=== PATIENT | male | born 1950 | race Caucasian/White ===

== ENCOUNTER 2018-02-11 14:25 | Inpatient (IN) | payer OTHER ==
[~2018-02-11] VITALS: Ht 172.7 cm; Wt 69.9 kg
[~2018-02-11 14:25] MED LIST: ASPI81TA28 PO; AZIT250T PO; ETHA1TAB8 PO; FRS/40 PO; MONT1TAB3 PO; OXGN; RIFA300C34 PO; UMEC1AER INH; WARF5TAB7 PO
[2018-02-11] MEDS ORDERED: ALBUT/IPRATROP 3MG/0.5MG NEB 3 ML VIAL INH STA (14:42)
[2018-02-11] MEDS ORDERED: CEFEPIME IV 1,000 MG in DEXTROSE 5% 100ML 100 ML IV STA (14:45)
[2018-02-11] MEDS ORDERED: METHYLPREDNISOLONE 125 MG VIAL IV STA (14:45)
[2018-02-11] MEDS ORDERED: SODIUM CHLORIDE 0.9% 1000ML 1,000 ML IV STA (14:45)
[2018-02-11] MEDS ORDERED: OPTIRAY 320 IV PRN (15:00)
--- NOTE | 2018-02-11 15:00 | DIAGNOSTIC IMAGING REPORT ---
CHEST ONE VIEW PORTABLE CLINICAL HISTORY: EVALUATE RESPIRATORY DISTRESS.DYSPNEA COMPARISON STUDY: 11/26/2017 FINDINGS: Right midlung masslike process showing a slight increase in consolidative change compared to the prior study. Lungs otherwise appear clear. Diaphragms are smooth. No evidence of pneumothorax. IMPRESSION: Masslike process right midlung showing a slight interval increase in size and consolidation. The above report was generated using voice recognition software. It may contain grammatical, syntax or spelling errors. Electronically signed by: Jas Reed M.D. 02/11/2018 2:59 PM Dictated Date/Time: 02/11/2018 2:57 PM
[2018-02-11 15:12] LABS: BASO % 0.3 %; BASO ABS # 0.04 K/uL (0-0.2); EOS % 0.4 %; EOS ABS # 0.06 K/uL (0-0.5); HEMATOCRIT 39.8 % (42-52); IG# 0.04 K/uL (0.00-0.02); LYMPH % 5.4 %; MEAN CELL VOLUME 81.4 fL (80-100); MEAN CORPUSCULAR HEMOGLOBIN 24.5 pg (25-34); MEAN CORPUSCULAR HGB CONC 30.2 g/dl (32-36); MEAN PLATELET VOLUME 9.3 fL (7.4-10.4); MONO % 6.3 %; MONO ABS # 0.93 K/uL (0.11-0.59); NEUT % 87.3 %; PLATELET COUNT 357 K/uL (130-400); RED CELL DISTRIBUTION WIDTH CV 15.9 % (11.5-14.5); RED CELL DISTRIBUTION WIDTH SD 47.3 fL (36.4-46.3); WHITE BLOOD COUNT 14.77 K/uL (4.8-10.8)
[2018-02-11 15:19] LABS: ISTAT IONIZED CALCIUM 1.41 mmol/l (1.12-1.32); ISTAT POTASSIUM 4.8 mEq/L (3.3-5.0)
[2018-02-11 15:21] LABS: INR 2.8 (0.9-1.1); PTT PATIENT 33.8 SECONDS (21.0-31.0)
[2018-02-11] MEDS ORDERED: VNTHFA/IN INH (15:28)
[2018-02-11 15:33] LABS: ALBUMIN 2.6 gm/dl (3.4-5.0); CALCIUM 10.5 mg/dl (8.5-10.1); CREATININE 1.05 mg/dl (0.60-1.40); POTASSIUM 4.5 mmol/L (3.5-5.1); TOTAL PROTEIN 8.8 gm/dl (6.4-8.2)
--- NOTE | 2018-02-11 15:44 | DIAGNOSTIC IMAGING REPORT ---
(CHEST FOR PE) ANGIO WITH CT DOSE: 278.74 mGy.cm HISTORY: Chest pain dyspnea TECHNIQUE: Multiaxial CT images of the chest were performed following the intravenous administration of contrast to evaluate the pulmonary arteries. Maximal intensity projection images were also obtained. A dose lowering technique was utilized adhering to the principles of ALARA. COMPARISON STUDY: None. FINDINGS: Mild atherosclerotic change thoracic aorta. No evidence for aneurysm or dissection. Several small filling defects involving the third or vessels of the right as well as left lower pulmonary arterial vasculature. No evidence for a central embolus. Large centrally necrotic mass involving the right lower lobe. This shows extensive invasion into the posterior chest wall and lower right vertebral column. This measures approximately 11 x 8 cm. There are scattered additional nodular densities of the right hemithorax and right hilar region. Several destructive rib changes are seen posterior at the site of the patient's large mass. Destructive changes involving the right lateral elements of the T8-T10 levels. There are destructive changes involving the posterior ribs, right transverse process, components of the right posterior arch as well as soft tissue encroachment upon the right neuroforamina. Additional nodular densities are identified within the right hemithorax suggesting metastatic change. Left lung remains generally clear. IMPRESSION: 1. Study is positive for several small third order emboli involving the right and to a lesser extent left lung base. 2. Large invasive and destructive mass right lower lobe 3. Mass invades right posterior and posterior lateral chest wall as well as the lower thoracic spinal column. 4. Additional scattered nodular densities of the right hemithorax consistent with metastatic foci. Instill note is made of a significant upper pole left renal cyst as well as developing upper abdominal and retrocrural adenopathy. The above report was generated using voice recognition software. It may contain grammatical, syntax or spelling errors. Electronically signed by: Jas Reed M.D. 02/11/2018 3:43 PM Dictated Date/Time: 02/11/2018 3:36 PM
[2018-02-11] MEDS ORDERED: VANCOMYCIN IV 1,400 MG in SODIUM CHLORIDE 0.9% 500ML 500 ML IV STA (15:57)
[2018-02-11] MEDS ORDERED: VANCOMYCIN CONSULT ACTIVE PRN ×2 (16:00→17:00)
[2018-02-11] MEDS ORDERED: PIPERACILLIN/TAZOBACTAM 4.5 GM/100ML D5W IV STA (16:12)
[2018-02-11] MEDS ORDERED: VANCOMYCIN IV 1,500 MG in SODIUM CHLORIDE 0.9% 500ML 500 ML IV ONE (16:15)
[2018-02-11] MEDS ORDERED: ACETAMINOPHEN 325 MG TAB PO PRN (16:45)
[2018-02-11] MEDS ORDERED: MAGNESIUM HYDROXIDE SUSP 30 ML UDC PO PRN (16:45)
[2018-02-11] MEDS ORDERED: ALBUTEROL 0.083% NEBU SOLN 3 ML VIAL INH PRN (16:45)
[2018-02-11] MEDS ORDERED: PIPERACILL/TAZOBAC CONSULT ACTIVE PRN (16:45)
[2018-02-11] MEDS ORDERED: ALUMINUM/MAGNESIUM/SIMETH (MAALOX MAX) 30 ML UDC PO PRN (16:45)
[2018-02-11] MEDS ORDERED: ZOLPIDEM TARTRATE 5 MG TAB PO PRN (16:45)
[2018-02-11] MEDS ORDERED: ONDANSETRON INJ 2 MG/ML 2 ML VIAL IV PRN (16:45)
[2018-02-11] MEDS ORDERED: POLYETHYLENE (MIRALAX) 17 GM PACK PO PRN (17:00)
--- NOTE | 2018-02-11 17:19 | History and Physical ---
History & Physical Date & Time of Service: Feb 11, 2018 at 16:36 Chief Complaint: O2 Level Down To 80% Primary Care Physician: Timoteo Lunsford M.D. History of Present Illness Source: patient, hospital records, other 67 y/o M Hx advanced COPD, recent Dx of R lung squamous cell CA, ARVIN infection, CAD, PVD, continues to smoke. The pt is dependent on 3L 02. He has been progressively SOB with a productive cough over the past day. He presented to the ER where an initial oxygen saturation was in the low 80s on his baseline 3L. He was sent for a CTA due to hypoxia which demonstrated several small third order emboli involving the right and to a lesser extent left lung base. A large, invasive R lung mass is again confirmed. The pt's INR is 2.8 on admission. His family states that recently, numbers have been subtherapeutic due to multiple antibiotics used to treat ARVIN. He does not complain of CP and could not confirm a fever. Initial labs are notable for leukocytosis. 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 The pt reports previous asbestos exposure. Smoking Status: Former Smoker Allergies Coded Allergies: No Known Allergies (Unverified , 02/11/18) Home Medications Scheduled Albuterol Hfa (Ventolin Hfa), 2 PUFFS INH Q6H Aspirin (Aspirin Ec), 81 MG PO DAILY Azithromycin (Zithromax), 250 MG PO DAILY Ethambutol Hcl (Ethambutol Hcl), 1,000 MG PO DAILY Furosemide (Lasix), 40 MG PO QAM Home O2 Therapy (Oxygen), 2 LITERS NA DAILY Home O2 Therapy (Oxygen), 4 LITERS NA HS Montelukast Sodium (Singulair), 10 MG PO QPM Rifampin (Rifadin), 300 MG PO BID Umeclidinium-Vilanterol (Anoro Ellipta 62.5-25 Mcg/INH), 1 PUFF INH QAM Warfarin Sod (Jantoven), 10 MG PO DAILY Review of Systems Constitutional: + weakness, + fatigue, No fever, No chills, No sweats Eyes: No worsening of vision ENT: No hearing loss, No unusual epistaxis, No nasal symptoms Respiratory: + cough, + sputum, + shortness of breath, + dyspnea on exertion, + dyspnea at rest Cardiovascular: No chest pain Abdomen: No pain, No nausea Musculoskeletal: No joint pain Genitourinary - Male: No hematuria, No dysuria, No urinary frequency Neurologic: No memory loss, No paralysis Psychiatric: No depression symptoms Endocrine: + fatigue Hematologic / Lymphatic: No abnormal bleeding/bruising Integumentary: No rash Allergic / Immunologic: No environmental allergies Physical Exam Vital Signs Date Time Temp Pulse Resp B/P (MAP) Pulse Ox O2 Delivery O2 Flow Rate FiO2 02/11/18 16:00 95 22 120/72 99 Nasal Cannula 5.0 02/11/18 15:42 97 Nasal Cannula 5.0 02/11/18 14:57 99 Oxymask 10.0 02/11/18 14:48 96 Oxymask 10.0 02/11/18 14:48 112 02/11/18 14:43 96 Oxymask 10.0 02/11/18 14:28 36.3 119 36 108/62 75 Nasal Cannula 3.0 General Appearance: WD/WN, no apparent distress, + pertinent finding (Pale appearing, middle-aged male, flat affect - no distress) Head: normocephalic Eyes: normal inspection ENT: normal ENT inspection Neck: supple, no JVD Respiratory/Chest: chest non-tender, + pertinent finding (Very poor air movement BL) Cardiovascular: regular rate, rhythm, no edema, no gallop Abdomen/GI: normal bowel sounds, non tender, soft Back: normal inspection Extremities/Musculoskelatal: normal inspection, no calf tenderness Neurologic/Psych: medical associate II-XII nml as tested, no motor/sensory deficits, alert Skin: warm/dry, + pallor Diagnostics Laboratory Results Results Past 24 Hours Test 02/11/18 15:00 02/11/18 15:10 Range/Units White Blood Count 14.77 4.8-10.8 K/uL Red Blood Count 4.89 4.7-6.1 M/uL Hemoglobin 12.0 14.0-18.0 g/dL Hematocrit 39.8 42-52 % Mean Corpuscular Volume 81.4 80-100 fL Mean Corpuscular Hemoglobin 24.5 25-34 pg Mean Corpuscular Hemoglobin Concent 30.2 32-36 g/dl Platelet Count 357 130-400 K/uL Mean Platelet Volume 9.3 7.4-10.4 fL Neutrophils (%) (Auto) 87.3 % Lymphocytes (%) (Auto) 5.4 % Monocytes (%) (Auto) 6.3 % Eosinophils (%) (Auto) 0.4 % Basophils (%) (Auto) 0.3 % Neutrophils # (Auto) 12.90 1.4-6.5 K/uL Lymphocytes # (Auto) 0.80 1.2-3.4 K/uL Monocytes # (Auto) 0.93 0.11-0.59 K/uL Eosinophils # (Auto) 0.06 0-0.5 K/uL Basophils # (Auto) 0.04 0-0.2 K/uL RDW Standard Deviation 47.3 36.4-46.3 fL RDW Coefficient of Variation 15.9 11.5-14.5 % Immature Granulocyte % (Auto) 0.3 % Immature Granulocyte # (Auto) 0.04 0.00-0.02 K/uL Prothrombin Time 29.1 9.0-12.0 SECONDS Prothromb Time International Ratio 2.8 0.9-1.1 Activated Partial Thromboplast Time 33.8 21.0-31.0 SECONDS Partial Thromboplastin Ratio 1.3 Sodium Level 135 136-145 mmol/L Potassium Level 4.5 3.5-5.1 mmol/L Chloride Level 100 98-107 mmol/L Carbon Dioxide Level 31 21-32 mmol/L Anion Gap 4.0 13.0 16-25 mmol/L Blood Urea Nitrogen 20 7-18 mg/dl Creatinine 1.05 0.60-1.40 mg/dl Est Creatinine Clear Calc Drug Dose 64.2 ml/min Estimated GFR () 83.5 Estimated GFR (Non- 72.1 BUN/Creatinine Ratio 19.5 10-20 Random Glucose 104 70-99 mg/dl Calcium Level 10.5 8.5-10.1 mg/dl Total Bilirubin 0.2 0.2-1 mg/dl Aspartate Amino Transf (AST/SGOT) 26 15-37 U/L Alanine Aminotransferase (ALT/SGPT) 20 12-78 U/L Alkaline Phosphatase 121 45-117 U/L Troponin I 0.035 0-0.045 ng/ml Total Protein 8.8 6.4-8.2 gm/dl Albumin 2.6 3.4-5.0 gm/dl Globulin 6.2 2.5-4.0 gm/dl Albumin/Globulin Ratio 0.4 0.9-2 Bedside Hemoglobin 14.3 14.0-18.0 g/dl Bedside Hematocrit 42 42-52 % Bedside Sodium 139 135-144 mEq/L Bedside Potassium 4.8 3.3-5.0 mEq/L Bedside Chloride 97 101-112 mEq/L Bedside Total CO2 36 24-31 mEq/l Bedside Blood Urea Nitrogen 25 7-18 mg/dl Bedside Creatinine 1.0 0.6-1.3 mg/dl Bedside Glucose (other) 110 70-99 mg/dl Bedside Ionized Calcium (Jasmin) 1.41 1.12-1.32 mmol/l Diagnostic Radiology CTA: 1. Study is positive for several small third order emboli involving the right and to a lesser extent left lung base. 2. Large invasive and destructive mass right lower lobe. 3. Mass invades right posterior and posterior lateral chest wall as well as the lower thoracic spinal column. 4. Additional scattered nodular densities of the right hemithorax consistent with metastatic foci. Instill note is made of a significant upper pole left renal cyst as well as developing upper abdominal and retrocrural adenopathy. Impression Assessment and Plan 67 y/o M Hx advanced COPD, recent Dx of R lung squamous cell CA, ARVIN infection, CAD, PVD, continues to smoke. The pt is dependent on 3L 02. He has been progressively SOB with a productive cough over the past day. He presented to the ER where an initial oxygen saturation was in the low 80s on his baseline 3L. He was sent for a CTA due to hypoxia which demonstrated several small third order emboli involving the right and to a lesser extent left lung base. A large, invasive R lung mass is again confirmed. The pt's INR is 2.8 on admission. His family states that recently, numbers have been subtherapeutic due to multiple antibiotics used to treat ARVIN. He does not complain of CP and could not confirm a fever. Initial labs are notable for leukocytosis. 1) Hypoxia - multifactorial - Productive cough. 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 We will obtain a sputum culture. We will hold his MAC treatment presently. - Advanced COPD - will be treated for exacerbation with nebs and steroids - Peripheral PEs - unclear if these are contributing. INR has apparently been erratic as of late, however, it is concerning that he is developing PEs on Coumadin considering his underlying CA - this will need f/u. We have continued his Coumadin and have requested a LE US. - Lung CA - recent diagnosis - treatment plan has not yet been formulated per pt. 2) CAD - no evidence of ACS - cont daily ASA 3) Discussed smoking cessation Full code - INR is therapeutic on Coumadin prophylaxis Total tie for this admit including review of labs, meds, imaging, records - discussion with pt and ER attending - 40 min Resuscitation Status VTE Prophylaxis Will order VTE Prophylaxis: Yes
[2018-02-11 18:15] VITALS: BP 138/52; PULSE 90; TEMP 36.4; O2SAT 86; BMI 23.1
--- NOTE | 2018-02-11 18:15 | DIAGNOSTIC IMAGING REPORT ---
BILATERAL LOWER EXTREMITY VENOUS DOPPLER HISTORY: Acute pain and swelling of the lower extremities. History of prior bilateral lower extremity arterial stent graft placement DVT COMPARISON STUDY: None. FINDINGS: There is normal compressibility, flow, and augmentation within the bilateral lower extremity deep venous systems. IMPRESSION: No sonographic evidence of deep venous or pneumatosis within the right or left lower extremity. Electronically signed by: Yahir Hedrick M.D. 02/11/2018 6:14 PM Dictated Date/Time: 02/11/2018 6:13 PM
[2018-02-11] MEDS ORDERED: SODIUM CHLORIDE 0.9% 1000ML 1,000 ML IV ONE (19:00)
[2018-02-11] MEDS: ALBUT/IPRATROP 3MG/0.5MG NEB 3 ML VIAL INH SCH (19:05)
[2018-02-11 19:10] VITALS: PULSE 105; O2SAT 90
[2018-02-11 19:30] VITALS: BP 97/58; PULSE 99; TEMP 36.4; O2SAT 92
--- NOTE | 2018-02-11 19:40 | EMERGENCY ROOM VISIT NOTE ---
History Report prepared by Guy: Sybil Cagle Under the Supervision of: Dr. Ryan Vizcaino D.O. First contact with patient: 14:28 Chief Complaint: RESPIRATORY PROBLEMS Stated Complaint: O2 LEVEL DOWN TO 80% History of Present Illness The patient is a 67 year old male who presents to the Emergency Room with respiratory problems beginning today. He reports being more short of breath today. The patient states that he always wears oxygen and that he normally wears 3L during the day and 4L at night. The patient also reports having a productive cough and a runny nose. He states that he has been coughing up clear and pinkish phlegm. Per family, the patient is on Coumadin and states that the patient's numbers have not been good for about the past 3 weeks because he was placed on 3 antibiotics. Per family, the patient's INR was 1.38 last week. The patient denies having chest pain, abdominal pain, nausea, vomiting, or diarrhea. He does report that he has a history of blood clots. He states that he has an appointment tomorrow with Dr. Santiago. The following information was obtained from Dr. Marcus's office. The patient has a history of smoking. 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 The patient has a history of COPD and wears 3 Liters of Oxygen. The patient was hypoxic at 80% on 3 Liters. The patient follows with Dr. Boyer. Question of MAC. Source of History: patient, family Onset: today Position: chest Quality: other (respiratory problems) Associated Symptoms: + cough (productive), + SOB, No nausea, No vomiting, No abdominal pain, No diarrhea Review of Systems See HPI for pertinent positives & negatives. A total of 10 systems reviewed and were otherwise negative. Past Medical & Surgical Medical Problems: (1) COPD (chronic obstructive pulmonary disease) (2) Hypoxia (3) Lung cancer (4) Squamous cell carcinoma Family History Patient reports no known family medical history. Social History Smoking Status: Former Smoker Marital Status: Housing Status: lives with significant other Current/Historical Medications Scheduled Albuterol Hfa (Ventolin Hfa), 2 PUFFS INH Q6H Aspirin (Aspirin Ec), 81 MG PO DAILY Azithromycin (Zithromax), 250 MG PO DAILY Ethambutol Hcl (Ethambutol Hcl), 1,000 MG PO DAILY Furosemide (Lasix), 40 MG PO QAM Home O2 Therapy (Oxygen), 2 LITERS NA DAILY Home O2 Therapy (Oxygen), 4 LITERS NA HS Montelukast Sodium (Singulair), 10 MG PO QPM Rifampin (Rifadin), 300 MG PO BID Umeclidinium-Vilanterol (Anoro Ellipta 62.5-25 Mcg/INH), 1 PUFF INH QAM Warfarin Sod (Jantoven), 10 MG PO DAILY Allergies Coded Allergies: No Known Allergies (Unverified , 02/11/18) Physical Exam Vital Signs Date Time Temp Pulse Resp B/P (MAP) Pulse Ox O2 Delivery O2 Flow Rate FiO2 02/11/18 16:00 95 22 120/72 99 Nasal Cannula 5.0 02/11/18 15:42 97 Nasal Cannula 5.0 02/11/18 14:57 99 Oxymask 10.0 02/11/18 14:48 96 Oxymask 10.0 02/11/18 14:48 112 02/11/18 14:43 96 Oxymask 10.0 02/11/18 14:28 36.3 119 36 108/62 75 Nasal Cannula 3.0 Physical Exam GENERAL: Sitting on the edge of the bed, alert, ill appearing, well nourished, no distress, non-toxic. Dyspneic with conversation. Oxygen mask in place. EYE EXAM: normal conjunctiva. OROPHARYNX: no exudate, no erythema, lips, buccal mucosa, and tongue normal and mucous membranes are moist NECK: supple, no nuchal rigidity, no adenopathy, non-tender, no JVD LUNGS: Diffuse rhonchi bilaterally. Minimal air movement. Normal chest wall mechanics HEART: tachycardic, no murmurs, S1 normal and S2 normal ABDOMEN: abdomen soft, non-tender, normo-active bowel sounds, no masses, no rebound or guarding. BACK: Back is symmetrical on inspection and there is no deformity, no midline tenderness, no CVA tenderness. SKIN: no rashes and no bruising UPPER EXTREMITIES: upper extremities are grossly normal. LOWER EXTREMITIES: No pitting edema. Calves are equal bilaterally. NEURO EXAM: Normal sensorium, cranial nerves II-XII grossly intact, normal speech, no gross weakness of arms, no gross weakness of legs. Medical Decision & Procedures ER Provider Diagnostic Interpretation: Radiology results as stated below per my review and the radiologist's interpretation: CHEST ONE VIEW PORTABLE CLINICAL HISTORY: EVALUATE RESPIRATORY DISTRESS.DYSPNEA COMPARISON STUDY: 11/26/2017 FINDINGS: Right midlung masslike process showing a slight increase in consolidative change compared to the prior study. Lungs otherwise appear clear. Diaphragms are smooth. No evidence of pneumothorax. IMPRESSION: Masslike process right midlung showing a slight interval increase in size and consolidation. The above report was generated using voice recognition software. It may contain grammatical, syntax or spelling errors. Electronically signed by: Jas Reed M.D. 02/11/2018 2:59 PM Dictated Date/Time: 02/11/2018 2:57 PM (CHEST FOR PE) ANGIO WITH CT DOSE: 278.74 mGy.cm HISTORY: Chest pain dyspnea TECHNIQUE: Multiaxial CT images of the chest were performed following the intravenous administration of contrast to evaluate the pulmonary arteries. Maximal intensity projection images were also obtained. A dose lowering technique was utilized adhering to the principles of ALARA. COMPARISON STUDY: None. FINDINGS: Mild atherosclerotic change thoracic aorta. No evidence for aneurysm or dissection. Several small filling defects involving the third or vessels of the right as well as left lower pulmonary arterial vasculature. No evidence for a central embolus. Large centrally necrotic mass involving the right lower lobe. This shows extensive invasion into the posterior chest wall and lower right vertebral column. This measures approximately 11 x 8 cm. There are scattered additional nodular densities of the right hemithorax and right hilar region. Several destructive rib changes are seen posterior at the site of the patient's large mass. Destructive changes involving the right lateral elements of the T8-T10 levels. There are destructive changes involving the posterior ribs, right transverse process, components of the right posterior arch as well as soft tissue encroachment upon the right neuroforamina. Additional nodular densities are identified within the right hemithorax suggesting metastatic change. Left lung remains generally clear. IMPRESSION: 1. Study is positive for several small third order emboli involving the right and to a lesser extent left lung base. 2. Large invasive and destructive mass right lower lobe 3. Mass invades right posterior and posterior lateral chest wall as well as the lower thoracic spinal column. 4. Additional scattered nodular densities of the right hemithorax consistent with metastatic foci. Instill note is made of a significant upper pole left renal cyst as well as developing upper abdominal and retrocrural adenopathy. The above report was generated using voice recognition software. It may contain grammatical, syntax or spelling errors. Electronically signed by: Jas Reed M.D. 02/11/2018 3:43 PM Dictated Date/Time: 02/11/2018 3:36 PM Laboratory Results 02/11/18 15:00 Red Blood Count 4.89, Mean Corpuscular Volume 81.4, Mean Corpuscular Hemoglobin 24.5, Mean Corpuscular Hemoglobin Concent 30.2, Mean Platelet Volume 9.3, Neutrophils (%) (Auto) 87.3, Lymphocytes (%) (Auto) 5.4, Monocytes (%) (Auto) 6.3, Eosinophils (%) (Auto) 0.4, Basophils (%) (Auto) 0.3, Neutrophils # (Auto) 12.90, Lymphocytes # (Auto) 0.80, Monocytes # (Auto) 0.93, Eosinophils # (Auto) 0.06, Basophils # (Auto) 0.04 02/11/18 15:00 Test 02/11/18 15:00 02/11/18 15:10 White Blood Count 14.77 K/uL (4.8-10.8) Red Blood Count 4.89 M/uL (4.7-6.1) Hemoglobin 12.0 g/dL (14.0-18.0) Hematocrit 39.8 % (42-52) Mean Corpuscular Volume 81.4 fL (80-100) Mean Corpuscular Hemoglobin 24.5 pg (25-34) Mean Corpuscular Hemoglobin Concent 30.2 g/dl (32-36) Platelet Count 357 K/uL (130-400) Mean Platelet Volume 9.3 fL (7.4-10.4) Neutrophils (%) (Auto) 87.3 % Lymphocytes (%) (Auto) 5.4 % Monocytes (%) (Auto) 6.3 % Eosinophils (%) (Auto) 0.4 % Basophils (%) (Auto) 0.3 % Neutrophils # (Auto) 12.90 K/uL (1.4-6.5) Lymphocytes # (Auto) 0.80 K/uL (1.2-3.4) Monocytes # (Auto) 0.93 K/uL (0.11-0.59) Eosinophils # (Auto) 0.06 K/uL (0-0.5) Basophils # (Auto) 0.04 K/uL (0-0.2) RDW Standard Deviation 47.3 fL (36.4-46.3) RDW Coefficient of Variation 15.9 % (11.5-14.5) Immature Granulocyte % (Auto) 0.3 % Immature Granulocyte # (Auto) 0.04 K/uL (0.00-0.02) Prothrombin Time 29.1 SECONDS (9.0-12.0) Prothromb Time International Ratio 2.8 (0.9-1.1) Activated Partial Thromboplast Time 33.8 SECONDS (21.0-31.0) Partial Thromboplastin Ratio 1.3 Est Creatinine Clear Calc Drug Dose 64.2 ml/min Estimated GFR () 83.5 Estimated GFR (Non- 72.1 BUN/Creatinine Ratio 19.5 (10-20) Calcium Level 10.5 mg/dl (8.5-10.1) Total Bilirubin 0.2 mg/dl (0.2-1) Aspartate Amino Transf (AST/SGOT) 26 U/L (15-37) Alanine Aminotransferase (ALT/SGPT) 20 U/L (12-78) Alkaline Phosphatase 121 U/L (45-117) Troponin I 0.035 ng/ml (0-0.045) Total Protein 8.8 gm/dl (6.4-8.2) Albumin 2.6 gm/dl (3.4-5.0) Globulin 6.2 gm/dl (2.5-4.0) Albumin/Globulin Ratio 0.4 (0.9-2) Bedside Hemoglobin 14.3 g/dl (14.0-18.0) Bedside Hematocrit 42 % (42-52) Bedside Sodium 139 mEq/L (135-144) Bedside Potassium 4.8 mEq/L (3.3-5.0) Bedside Chloride 97 mEq/L (101-112) Bedside Total CO2 36 mEq/l (24-31) Anion Gap 13.0 mmol/L (16-25) Bedside Blood Urea Nitrogen 25 mg/dl (7-18) Bedside Creatinine 1.0 mg/dl (0.6-1.3) Bedside Glucose (other) 110 mg/dl (70-99) Bedside Ionized Calcium (Jasmin) 1.41 mmol/l (1.12-1.32) Laboratory results per my review. Medications Administered Medications (Trade) Dose Ordered Sig/Danae Route Start Time Stop Time Status Last Admin Dose Admin Albuterol/ Ipratropium (Duoneb) 3 ml NOW STAT INH 02/11/18 14:42 02/11/18 14:44 DC 02/11/18 14:55 3 ML Cefepime HCl 1000 mg/Dextrose 111 ml @ 200 mls/hr NOW STAT IV 02/11/18 14:45 02/11/18 15:18 DC 02/11/18 15:10 200 MLS/HR Sodium Chloride 1,000 ml @ 999 mls/hr Q1H1M STAT IV 02/11/18 14:45 02/11/18 15:45 DC 02/11/18 15:10 999 MLS/HR Methylprednisolone Sodium Succinate (Solu-Medrol IV) 125 mg NOW STAT IV 02/11/18 14:45 02/11/18 14:46 DC 02/11/18 15:10 125 MG Vancomycin HCl 1500 mg/Sodium Chloride 530 ml @ 200 mls/hr 1615 ONCE IV 02/11/18 16:15 02/11/18 18:53 DC 02/11/18 16:50 200 MLS/HR Piperacillin Sod/ Tazobactam Sod (Zosyn Iv) 4.5 gm NOW STAT IV 02/11/18 16:12 02/11/18 16:13 DC 02/11/18 16:18 4.5 GM ECG Per My Interpretation Indication: SOB/dyspnea Rate (beats per minute): 112 Rhythm: sinus tachycardia Findings: other (normal axis, poor baseline ) ED Course ED COURSE: Vital signs were reviewed and showed hypoxia. The patients medical record was reviewed The above diagnostic studies were performed and reviewed. ED treatments and interventions as stated above. 1434: The patient was evaluated in room C6. A complete history and physical examination was performed. 1442: Ordered Duoneb 3 ml INH 1445: Ordered Solu-Medrol IV 125 mg IV, Sodium Chloride 1000 ml @ 999 mls/hr IV , Cefepime HCl 1000 mg/Dextrose 111 ml @ 200 mls/hr IV. 1600: Ordered Vancomycin HCl 1 ea consult. 1612: Ordered Zosyn IV 4.5 gm IV 1615: Ordered Vancomycin HCl 1500 mg/Sodium Chloride 530 ml @ 200 mls/hr IV. 1644: Upon reevaluation, the patient is resting. I discussed the findings and the treatment plan with the patient. He expresses agreement and understanding. I spoke with Dr. Brothers of the [facility]. He will be evaluated for further management. Medical Decision Differential diagnoses includes but is not limited to pneumonia, bronchitis, COPD/Asthma exacerbation, pneumothorax, pulmonary embolism, congestive heart failure, acute coronary syndrome. Patient is a 67-year-old male presents the ER referred in by hematology oncology as he was found to be hypoxic at 80% on his normal 3 L nasal cannula. He notes he became significantly short of breath today. It was sudden in onset. He also notes to a productive cough which is slightly changed. 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 He has a known squamous cell carcinoma with metastases and a cavitary lesion of the chest. CBC shows a leukocytosis of 14,000. BMP along with LFTs were fairly normal. Troponin was negative. INR was therapeutic at 2.8. I did obtain a CT PE as he notes he did have close to 3 weeks where his INR was low with history of PEs. UA without infection. CT of the chest did show PEs and a slightly worsening cavitary lesion. Patient was given IV Zosyn and vancomycin. I did discuss with pulmonology. Patient was updated bedside. He was admitted to internal medicine. Medication Reconcilliation Current Medication List: was personally reviewed by me Blood Pressure Screening Patient's blood pressure: Normal blood pressure Consults Time Called: 1627 Consulting Physician: Dr. Brothers-[facility] Returned Call: 1644 I reviewed the patient's case with Dr. Brothers. He will evaluate the patient for further management. Impression Primary Impression: Pulmonary embolism Additional Impressions: Hypoxia Metastatic squamous cell carcinoma Scribe Attestation The scribe's documentation has been prepared under my direction and personally reviewed by me in its entirety. I confirm that the note above accurately reflects all work, treatment, procedures, and medical decision making performed by me. Departure Information Dispostion Being Evaluated By Hospitalist Referrals Timoteo Lunsford M.D. (PCP) Patient Instructions My [facility] Problem Qualifiers Primary Impression: Pulmonary embolism Pulmonary embolism type: other Chronicity: acute Acute cor pulmonale presence: without acute cor pulmonale Qualified Codes: I26.99 - Other pulmonary embolism without acute cor pulmonale
[2018-02-11] MEDS: METHYLPREDNISOLONE IV 40 MG in SYRINGE 0 ML IV SCH (19:46)
[2018-02-11] MEDS ORDERED: AZITHROMYCIN IV 500 MG in DEXTROSE 5% 250ML 250 ML IV SCH (20:00)
[2018-02-11] MEDS: PIPERACILL/TAZOBAC IV 3.375 GM in DEXTROSE 5% 100ML 100 ML IV SCH (22:54)
[2018-02-11 23:11] VITALS: BP 97/61; PULSE 85; TEMP 36.5; O2SAT 93
[2018-02-11 23:30] VITALS: PULSE 84; O2SAT 95
[2018-02-12] VITALS (11 sets, daily range): BP systolic 95–128; BP diastolic 54–75; PULSE 90–137; TEMP 36.4–36.8; O2SAT 90–98
[2018-02-12] MEDS ORDERED: VANCOMYCIN IV 1,000 MG in SODIUM CHLORIDE 0.9% 250ML 250 ML IV SCH (01:00)
[2018-02-12] MEDS: ALBUT/IPRATROP 3MG/0.5MG NEB 3 ML VIAL INH SCH ×4 (01:36→19:00)
[2018-02-12] MEDS: METHYLPREDNISOLONE IV 40 MG in SYRINGE 0 ML IV SCH ×4 (01:55→20:37)
[2018-02-12] MEDS: PIPERACILL/TAZOBAC IV 3.375 GM in DEXTROSE 5% 100ML 100 ML IV SCH (05:13)
[2018-02-12 07:05] LABS: HEMOGLOBIN 10.2 g/dL (14.0-18.0); MEAN CELL VOLUME 82.2 fL (80-100); MEAN CORPUSCULAR HEMOGLOBIN 23.9 pg (25-34); MEAN CORPUSCULAR HGB CONC 29.1 g/dl (32-36); MEAN PLATELET VOLUME 9.4 fL (7.4-10.4); PLATELET COUNT 343 K/uL (130-400); RED CELL DISTRIBUTION WIDTH CV 16.1 % (11.5-14.5); RED CELL DISTRIBUTION WIDTH SD 48.7 fL (36.4-46.3); WHITE BLOOD COUNT 15.26 K/uL (4.8-10.8)
[2018-02-12 07:26] LABS: CALCIUM 9.7 mg/dl (8.5-10.1); CREATININE 0.99 mg/dl (0.60-1.40); POTASSIUM 4.3 mmol/L (3.5-5.1)
[2018-02-12 08:21] LABS: INR 2.8 (0.9-1.1)
--- NOTE | 2018-02-12 09:56 | Clinical Documentation Query ---
WILLIE Hammonds : CLINICAL DOCUMENTATION QUERY Patient is a 67 year old male admitted for evaluation and treatment of hypoxemia. Noted to be dependent upon 3L O2 via nasal cannula. Above this, patient required sa 10L/min mask to correct acute hypoxemia in the setting of pneumonia and pulmonary emboli. As appropriate, consider capture of this clinical information as suggested below. Thank you. In your clinical opinion is this patient being managed for: ( x ) Acute on chronic respiratory failure with hypoxia ( ) Not Agree ( ) Other explanation of clinical findings (No explanation is considered a No Response) ( ) Unable to determine ( ) Need to Discuss (Phone CDS or qliq) (No discussion is considered a No Response) The medical record reflects the following clinical findings, treatment, and risk factors. Clinical Indicators: As above Treatment: Ongoing provision of supplemental O2 Risk Factors: Pneumonia, acute COPD exacerbation, bilateral pulmonary emboli. Please clarify and document your clinical opinion in the progress notes and discharge summary. Terms such as "probable", "suspected", "likely", "questionable", "possible", or "still to tbe ruled out" are acceptable. IF IN AGREEMENT, YOU MUST DOCUMENT ABOVE DIAGNOSTIC STATEMENT IN DAILY PROGRESS NOTES AND DISCHARGE SUMMARY. This document is not part of the patient's record. Thank You, Krunal Miller, [phone]
--- NOTE | 2018-02-12 11:31 | Hospitalist Progress Note ---
Hospitalist Progress Note Date of Service Feb 12, 2018. Subjective Pt evaluation today including: conversation w/ patient, chart review (reviewed outpatient records extensively), conversation w/ web consultant (Pulmonology) Pt feels much better, breathing is back to baseline, no cough. Afebrile. No pain. Tele with NSR with a short burst of SVT., Pt reports he switched to [facility] recently and had a CT guided biopsy of his lung mass. He was seeing Dr. Marcus yesterday for the first time in Oncology clinic but when found to be hypoxic, was sent to the ER Constitutional: No fever All Other Systems: Reviewed and Negative Objective Vital Signs Date Time Temp Pulse Resp B/P (MAP) Pulse Ox O2 Delivery O2 Flow Rate FiO2 02/12/18 08:00 Nasal Cannula 4.0 02/12/18 07:09 99 20 93 Nasal Cannula 4.0 02/12/18 06:48 36.5 100 32 121/64 (83) 91 Nasal Cannula 4.0 02/12/18 04:43 36.5 95 38 96/57 (70) 90 Nasal Cannula 4.0 02/12/18 01:36 91 20 92 Nasal Cannula 4.0 02/11/18 23:30 84 20 95 Nasal Cannula 4.0 02/11/18 23:11 36.5 85 23 97/61 (73) 93 Nasal Cannula 4.0 02/11/18 20:00 Nasal Cannula 4.0 02/11/18 19:30 36.4 99 20 97/58 (71) 92 Nasal Cannula 4.0 02/11/18 19:10 105 20 90 Nasal Cannula 4.0 02/11/18 18:15 36.4 90 28 138/52 86 Nasal Cannula 3.0 02/11/18 17:35 91 30 90/54 97 02/11/18 17:01 92 02/11/18 16:00 95 22 120/72 99 Nasal Cannula 5.0 02/11/18 15:42 97 Nasal Cannula 5.0 02/11/18 14:57 99 Oxymask 10.0 02/11/18 14:48 96 Oxymask 10.0 02/11/18 14:48 112 02/11/18 14:43 96 Oxymask 10.0 02/11/18 14:28 36.3 119 36 108/62 75 Nasal Cannula 3.0 Physical Exam General Appearance: WD/WN, no apparent distress Eyes: normal inspection, sclerae normal ENT: hearing grossly normal, pharynx normal Neck: trachea midline Respiratory/Chest: no respiratory distress, no accessory muscle use, + wheezing (diffuse exp wheezes and some crackles, with decreased BS at right lower and middl elung browning) Cardiovascular: regular rate, rhythm, no edema, no murmur Abdomen: normal bowel sounds, non tender, soft, no organomegaly Extremities: no pedal edema, no calf tenderness, + pertinent finding (chronic venous stasis changes) Neurologic/Psychiatric: alert, normal mood/affect, oriented x 3 Skin: warm/dry, no rash Laboratory Results Last 24 Hours Test 02/11/18 15:00 02/11/18 15:10 02/11/18 17:42 02/11/18 18:40 White Blood Count 14.77 K/uL Red Blood Count 4.89 M/uL Hemoglobin 12.0 g/dL Hematocrit 39.8 % Mean Corpuscular Volume 81.4 fL Mean Corpuscular Hemoglobin 24.5 pg Mean Corpuscular Hemoglobin Concent 30.2 g/dl Platelet Count 357 K/uL Mean Platelet Volume 9.3 fL Neutrophils (%) (Auto) 87.3 % Lymphocytes (%) (Auto) 5.4 % Monocytes (%) (Auto) 6.3 % Eosinophils (%) (Auto) 0.4 % Basophils (%) (Auto) 0.3 % Neutrophils # (Auto) 12.90 K/uL Lymphocytes # (Auto) 0.80 K/uL Monocytes # (Auto) 0.93 K/uL Eosinophils # (Auto) 0.06 K/uL Basophils # (Auto) 0.04 K/uL RDW Standard Deviation 47.3 fL RDW Coefficient of Variation 15.9 % Immature Granulocyte % (Auto) 0.3 % Immature Granulocyte # (Auto) 0.04 K/uL Prothrombin Time 29.1 SECONDS Prothromb Time International Ratio 2.8 Activated Partial Thromboplast Time 33.8 SECONDS Partial Thromboplastin Ratio 1.3 Sodium Level 135 mmol/L Potassium Level 4.5 mmol/L Chloride Level 100 mmol/L Carbon Dioxide Level 31 mmol/L Anion Gap 4.0 mmol/L 13.0 mmol/L Blood Urea Nitrogen 20 mg/dl Creatinine 1.05 mg/dl Est Creatinine Clear Calc Drug Dose 64.2 ml/min Estimated GFR () 83.5 Estimated GFR (Non- 72.1 BUN/Creatinine Ratio 19.5 Random Glucose 104 mg/dl Calcium Level 10.5 mg/dl Total Bilirubin 0.2 mg/dl Aspartate Amino Transf (AST/SGOT) 26 U/L Alanine Aminotransferase (ALT/SGPT) 20 U/L Alkaline Phosphatase 121 U/L Troponin I 0.035 ng/ml Total Protein 8.8 gm/dl Albumin 2.6 gm/dl Globulin 6.2 gm/dl Albumin/Globulin Ratio 0.4 Bedside Hemoglobin 14.3 g/dl Bedside Hematocrit 42 % Bedside Sodium 139 mEq/L Bedside Potassium 4.8 mEq/L Bedside Chloride 97 mEq/L Bedside Total CO2 36 mEq/l Bedside Blood Urea Nitrogen 25 mg/dl Bedside Creatinine 1.0 mg/dl Bedside Glucose (other) 110 mg/dl Bedside Ionized Calcium (Jasmin) 1.41 mmol/l Procalcitonin 0.25 ng/ml Urine Color DK YELLOW Urine Appearance CLEAR Urine pH 5.0 Urine Specific Smoot > 1.045 Urine Protein TRACE Urine Glucose (UA) NEG Urine Ketones NEG Urine Occult Blood 3+ Urine Nitrite NEG Urine Bilirubin NEG Urine Urobilinogen NEG Urine Leukocyte Esterase NEG Urine WBC (Auto) 5-10 /hpf Urine RBC (Auto) 10-30 /hpf Urine Hyaline Casts (Auto) 0 /lpf Urine Epithelial Cells (Auto) 0-5 /lpf Urine Bacteria (Auto) NEG Urine Crystals Urine Yeast (Auto) Test 02/12/18 06:29 02/12/18 08:05 White Blood Count 15.26 K/uL Red Blood Count 4.26 M/uL Hemoglobin 10.2 g/dL Hematocrit 35.0 % Mean Corpuscular Volume 82.2 fL Mean Corpuscular Hemoglobin 23.9 pg Mean Corpuscular Hemoglobin Concent 29.1 g/dl RDW Standard Deviation 48.7 fL RDW Coefficient of Variation 16.1 % Platelet Count 343 K/uL Mean Platelet Volume 9.4 fL Sodium Level 139 mmol/L Potassium Level 4.3 mmol/L Chloride Level 104 mmol/L Carbon Dioxide Level 31 mmol/L Anion Gap 4.0 mmol/L Blood Urea Nitrogen 18 mg/dl Creatinine 0.99 mg/dl Est Creatinine Clear Calc Drug Dose 68.1 ml/min Estimated GFR () 89.7 Estimated GFR (Non- 77.4 BUN/Creatinine Ratio 18.2 Random Glucose 98 mg/dl Calcium Level 9.7 mg/dl Magnesium Level 2.2 mg/dl Prothrombin Time 28.7 SECONDS Prothromb Time International Ratio 2.8 Diagnostic Results personally reviewed CT chest Assessment and Plan This pt is a 67 y/o M Hx advanced COPD with chronic hypoxic respiratory failure , recent Dx of R lung squamous cell CA, ARVIN infection, CAD, PVD, continues to smoke. The pt is dependent on 3L 02. He presented from the Oncology clinic with progressively worsening SOB over the past day and hypoxia. He presented to the ER where an initial oxygen saturation was in the low 80s on his baseline 3L. He was sent for a CTA due to hypoxia which demonstrated several small third order emboli involving the right and to a lesser extent left lung base. A large, invasive R lung mass is again confirmed. The pt's INR is 2.8 on admission. His family states that recently, numbers have been subtherapeutic due to multiple antibiotics used to treat ARVIN. He does not complain of CP and could not confirm a fever. Initial labs are notable for leukocytosis. Acute on chronic respiratory failure with Hypoxia - multifactorial, likely secondary to COPD exacerbation, large squamous cell lung CA, and multiple small PEs. Much improved with IV steroids and received abx, nebs. - Initially treated for PNA, but PCT negative, afebrile, leukocytosis could be reactive -dc all antibiotics after d/w Pulm CAD - no evidence of ACS - cont daily ASA Tobacco user- Discussed smoking cessation ARVIN-dxd on DNA probe from bronch in [place] in December 2017. No need for treatment as per Pulm, needs treatment for SCC lung and meds for ARVIN high risk -dc ethambutol, rifampin, and azithro upon dc COPD Exacerbation-wean to prednisone off IV steroids for tomorrow, continue nebs , inhalers Acute PEs-no DVT, has h/o PEs, with CA, could be tumor emboli as per Pulm, but will see about cost and patient preference of taking Xarelto vs Lovenox instead as better choices in his situation -hold coumadin -follow INR -start Xarelto or Lovenox when INR< 2.0 Squamous Cell CA Lung-at least stage 3A with invasion into vertebral body, with pulm nodules -appreciate Pulm input, f/u with Oncology after dc -Oncology asks us to get CT abd/pel and MRI Brain to expedite staging process -will likely need Chemoradiation and possible surgical resection SVT-short burst, asymptomatic -continue tele monitoring, consider starting beta brandie Proph-coumadin Dispo-remain on tele
[2018-02-12] MEDS ORDERED: OPTIRAY 320 IV PRN (12:00)
--- NOTE | 2018-02-12 13:11 | Pulmonary Consultation ---
History General Date of Service: Feb 12, 2018. 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 Patient has been seen by an outside shearer screen measurer and trimmer Dr. Tovar undergone bronchoscopic/nevus evaluation on 03/30/2018 for necrotizing right lower lobe lesion. At that time there is no definitive answer but bronchial washings of the right middle lobe right lower lobe were suspicious for squamous cell carcinoma and a DNA probe sent off on AFB material was consistent with ARVIN. Patient was then started on triple therapy antibiotics for the ARVIN: Azithromycin , ethambutol and rifampin. The patient had a been experiencing unintentional weight loss over the past year approximately 60 pounds as well as some intermittent hemoptysis. A chest x-ray was performed on 11/26/2017 showing a cavitary density in the right lower lobe posterior subsegment followed by CT of the chest performed 12/06/2017 showing a 7.3 cm right lower lobe posterior subsegment cavitary nodule along with a 1.7 cm smaller cavitary nodule. The large cavitary nodule was noted to directly invade the ribs at T7 and T9. Patient has a significant past medical history: chronic tobacco use, pulmonary cavitary lesions, ARVIN via bronchoscopy, asbestos exposure, peripheral vascular disease, psoriasis, COPD, myocardial infarction, GI bleed secondary it was believed 2 diverticular origin during our interview the patient noted dramatic improvement in his overall respiratory status and energy level of since his arrival. He still continues to have some mild pleurisy, intermittent mild hemoptysis with mild productive sputum but denies any airway compromise. He also denies: Palpitations, classic cardiac chest pain, change in bowel habitus, vertigo, change in site or any focal weakness. Patient CT angiogram of the chest obtained also showed diffuse lower lobe intravascular changes consistent with pulmonary emboli in the distal vasculature. Current inpatient own hospital workup: WBC: 15K PLT: 343K INR: 2.8 Procalcitonin: 0.25 Bilateral lower extremity DVT study: No sonographic evidence of DVT CTA: Supple small 3rd order emboli involving the right and to a lesser extent left lung base, large invasive right lower lobe mass/cavitating, as well as thoracic spinal, additional scattered nodular densities of the ride hemithoracic cavity consistent with metastatic foci,, developing upper abdominal retro crucial adenopathy PmHx: 1. Squamous cell carcinoma of the lung 2. Very severe COPD (FEV1: 27%) with significant reversible component 3. CAD (coronary artery disease) 4. Cavitating mass in right lower lung lobe 5. Chronic anticoagulation 6. Heart attack 7. Pneumonia 8. Psoriasis 9. PVD (peripheral vascular disease) 10. Rib pain on right side 11. Tobacco use disorder PsHx: 1. colonoscopy 2. S/P femoral-popliteal bypass surgery 3. toe amputation 4. Right inguinal hernia repair 5. Transthoracic sick needle aspiration 01/20/2018 6. Bronchoscopy/EBUS Family History 1. diabetes mellitus 2. Coronary artery disease Social History 1. Exercise limited by physical condition 2. Living situation 3. 4. Never used moist powdered tobacco 5. No illicit drug use 6. Rarely consumes alcohol 7. Retired 8. Smokes 1 pack of cigarettes per day 9. Special needs due to hearing impairment Current Meds 1. Montelukast Sodium 10 MG Oral Tablet; TAKE 1 TABLET AT BEDTIME 2. Warfarin Sodium 5 MG Oral Tablet; TAKE 1 TABLET DAILY DIRECTED 3. Hydrocodone-Acetaminophen 5-325 MG Oral Tablet; 1 tab every 6 hours as needed for 4. Albuterol Sulfate (2.5 MG/3ML) 0.083% Inhalation Nebulization Solution; USE 1 VIAL IN NEBULIZER 4 TIMES A DAY as needed 5. Anoro Ellipta 62.5-25 MCG/INH Inhalation Aerosol Powder Breath Activated; INHALE 1 PUFFS Daily 6. Aspirin 81 MG Oral Tablet Delayed Release; TAKE 1 TABLET DAILY; 7. Azithromycin 250 MG Oral Tablet; TAKE 1 TABLET DAILY DIRECTED; 8. Ethambutol HCl - 400 MG Oral Tablet; TAKE 1 TABLET DAILY DIRECTED; 9. Furosemide 40 MG Oral Tablet; TAKE 1 TABLET DAILY; 10. RifAMPin 300 MG Oral Capsule; take 1 by mouth daily; 11. Ventolin HFA 108 (90 Base) MCG/ACT Inhalation Aerosol Solution; INHALE 2 PUFFS EVERY 4 HOURS NEEDED Allergies 1. Augmentin TABS HPI The patient is a 67 year old male who presents to [facility] with complaints of Hypoxia; Lung Cancer. The patient's primary care provider is Timoteo Lunsford M.D.. Historian: patient, EMS Review of Systems Constitutional: reports: as stated in HPI Eyes: reports: as stated in HPI ENT: reports: as stated in HPI Cardiovascular: reports: as stated in HPI Respiratory: reports: as stated in HPI Gastrointestinal: reports: as stated in HPI Genitourinary - Male: reports: no symptoms Musculoskeletal: reports: as stated in HPI Integumentary: reports: no symptoms Neurologic: reports: as stated in HPI Psychiatric: reports: no symptoms Endocrine: no symptoms Hematologic / Lymphatic: no symptoms Allergic / Immunologic: no symptoms Past Medical History Past Medical History: Please refer to HPI Past Surgical History: Please refer to HPI Family History Patient reports no known family medical history. Please refer to HPI Social History Please refer to HPI Hx Tobacco Use In Past Year?: Yes (10 cigarettes) Smoking Status: Former Smoker Marital status: Allergies Coded Allergies: No Known Allergies (Unverified , 02/11/18) Current Medications Reported Home Medications Medications Dose Route/Sig Max Daily Dose Days Date Category Ventolin Hfa (Albuterol) 200 Puffs/26927 Mcg Aers 2 Puffs INH Q6H 02/11/18 Reported Oxygen Gas 4 Liters NA HS 01/30/18 Reported Oxygen Gas 2 Liters NA DAILY 01/30/18 Reported Anoro Ellipta 62.5-25 Mcg/INH (Umeclidinium-Vilanterol) 1 Aer Aer 1 Puff INH QAM 01/30/18 Reported Ethambutol Hcl 400 Mg Tab 1,000 Mg PO DAILY 01/30/18 Reported Rifadin (Rifampin) 300 Mg Cap 300 Mg PO BID 01/30/18 Reported Zithromax (Azithromycin) 250 Mg Tab 250 Mg PO DAILY 01/30/18 Reported Jantoven (Warfarin Sodium) 5 Mg Tab 10 Mg PO DAILY 01/30/18 Reported Singulair (Montelukast Sodium) 10 Mg Tab 10 Mg PO QPM 01/30/18 Reported Aspirin Ec (Aspirin) 81 Mg Tab 81 Mg PO DAILY 01/30/18 Reported Lasix (Furosemide) 40 Mg Tab 40 Mg PO QAM 01/30/18 Reported Physical Physical Exam Vital Signs: Date Time Temp Pulse Resp B/P (MAP) Pulse Ox O2 Delivery O2 Flow Rate FiO2 02/12/18 11:53 36.8 90 18 100/62 (75) 98 02/12/18 08:00 Nasal Cannula 4.0 02/12/18 07:09 99 20 93 Nasal Cannula 4.0 02/12/18 06:48 36.5 100 32 121/64 (83) 91 Nasal Cannula 4.0 02/12/18 04:43 36.5 95 38 96/57 (70) 90 Nasal Cannula 4.0 02/12/18 01:36 91 20 92 Nasal Cannula 4.0 02/11/18 23:30 84 20 95 Nasal Cannula 4.0 02/11/18 23:11 36.5 85 23 97/61 (73) 93 Nasal Cannula 4.0 02/11/18 20:00 Nasal Cannula 4.0 02/11/18 19:30 36.4 99 20 97/58 (71) 92 Nasal Cannula 4.0 02/11/18 19:10 105 20 90 Nasal Cannula 4.0 02/11/18 18:15 36.4 90 28 138/52 86 Nasal Cannula 3.0 02/11/18 17:35 91 30 90/54 97 02/11/18 17:01 92 02/11/18 16:00 95 22 120/72 99 Nasal Cannula 5.0 02/11/18 15:42 97 Nasal Cannula 5.0 02/11/18 14:57 99 Oxymask 10.0 02/11/18 14:48 96 Oxymask 10.0 02/11/18 14:48 112 02/11/18 14:43 96 Oxymask 10.0 02/11/18 14:28 36.3 119 36 108/62 75 Nasal Cannula 3.0 General Appearance: NO APPARENT DISTRESS, thin Head: NORMOCEPHALIC Eyes: PERRLA, NO DISCHARGE, EOMI, SCLERAE NORMAL ENT: NORMAL EAR EXAM, NORMAL NASAL EXAM, NORMAL MOUTH EXAM, NORMAL THROAT EXAM , other (Poor dentition but no signs of eneida infection) Neck: NORMAL RANGE OF MOTION, NO TENDERNESS, TRACHEA MIDLINE, NO STRIDOR Respiratory: other (No breath sounds appreciated in the right lower lobe posterior subsegment and notable mass appreciated growing from the right lower lobe/hemithorax posterior clavicular line. Mild rhonchi appreciated on the left hemithorax) Abdomen: NON TENDER, NORMAL BOWEL SOUNDS, NO REBOUND, NO MASSES, NO GUARDING Genitourinary - Male: EXTERNAL GENITALIA NORMAL Back: NORMAL INSPECTION, NO MIDLINE TENDERNESS, NO CVA TENDERNESS, other (No paravertebral tenderness noted with palpation even along the lumbar thoracic region) Upper Extremities: NO EDEMA, NO DEFORMITY, NORMAL ROM Lower Extremities: NO EDEMA, NO DEFORMITY, NORMAL ROM Pulses: carotid (R) (2+), carotid (L) (2+), dorsalis pedis (R) (2+), dorsalis pedis (L) (2+) Neuro: ALERT, ORIENTED x 3, NORMAL MOTOR EXAM, NORMAL SENSATION, NORMAL CEREBELLAR EXAM, NORMAL SPEECH Reflexes: biceps (R) (2+), bicpes (L) (2+), patellar (R) (2+), patellar (L) (2+ ) Babinski Testing: right (downgoing), left (downgoing) Psychiatric: NORMAL AFFECT, NO SUICIDAL IDEATION Diagnostics Labs Results Past 24 Hours Test 02/11/18 15:00 02/11/18 15:10 02/11/18 17:42 02/11/18 18:40 Range/Units White Blood Count 14.77 4.8-10.8 K/uL Red Blood Count 4.89 4.7-6.1 M/uL Hemoglobin 12.0 14.0-18.0 g/dL Hematocrit 39.8 42-52 % Mean Corpuscular Volume 81.4 80-100 fL Mean Corpuscular Hemoglobin 24.5 25-34 pg Mean Corpuscular Hemoglobin Concent 30.2 32-36 g/dl Platelet Count 357 130-400 K/uL Mean Platelet Volume 9.3 7.4-10.4 fL Neutrophils (%) (Auto) 87.3 % Lymphocytes (%) (Auto) 5.4 % Monocytes (%) (Auto) 6.3 % Eosinophils (%) (Auto) 0.4 % Basophils (%) (Auto) 0.3 % Neutrophils # (Auto) 12.90 1.4-6.5 K/uL Lymphocytes # (Auto) 0.80 1.2-3.4 K/uL Monocytes # (Auto) 0.93 0.11-0.59 K/uL Eosinophils # (Auto) 0.06 0-0.5 K/uL Basophils # (Auto) 0.04 0-0.2 K/uL RDW Standard Deviation 47.3 36.4-46.3 fL RDW Coefficient of Variation 15.9 11.5-14.5 % Immature Granulocyte % (Auto) 0.3 % Immature Granulocyte # (Auto) 0.04 0.00-0.02 K/uL Prothrombin Time 29.1 9.0-12.0 SECONDS Prothromb Time International Ratio 2.8 0.9-1.1 Activated Partial Thromboplast Time 33.8 21.0-31.0 SECONDS Partial Thromboplastin Ratio 1.3 Sodium Level 135 136-145 mmol/L Potassium Level 4.5 3.5-5.1 mmol/L Chloride Level 100 98-107 mmol/L Carbon Dioxide Level 31 21-32 mmol/L Anion Gap 4.0 13.0 16-25 mmol/L Blood Urea Nitrogen 20 7-18 mg/dl Creatinine 1.05 0.60-1.40 mg/dl Est Creatinine Clear Calc Drug Dose 64.2 ml/min Estimated GFR () 83.5 Estimated GFR (Non- 72.1 BUN/Creatinine Ratio 19.5 10-20 Random Glucose 104 70-99 mg/dl Calcium Level 10.5 8.5-10.1 mg/dl Total Bilirubin 0.2 0.2-1 mg/dl Aspartate Amino Transf (AST/SGOT) 26 15-37 U/L Alanine Aminotransferase (ALT/SGPT) 20 12-78 U/L Alkaline Phosphatase 121 45-117 U/L Troponin I 0.035 0-0.045 ng/ml Total Protein 8.8 6.4-8.2 gm/dl Albumin 2.6 3.4-5.0 gm/dl Globulin 6.2 2.5-4.0 gm/dl Albumin/Globulin Ratio 0.4 0.9-2 Bedside Hemoglobin 14.3 14.0-18.0 g/dl Bedside Hematocrit 42 42-52 % Bedside Sodium 139 135-144 mEq/L Bedside Potassium 4.8 3.3-5.0 mEq/L Bedside Chloride 97 101-112 mEq/L Bedside Total CO2 36 24-31 mEq/l Bedside Blood Urea Nitrogen 25 7-18 mg/dl Bedside Creatinine 1.0 0.6-1.3 mg/dl Bedside Glucose (other) 110 70-99 mg/dl Bedside Ionized Calcium (Jasmin) 1.41 1.12-1.32 mmol/l Procalcitonin 0.25 0-0.5 ng/ml Urine Color DK YELLOW Urine Appearance CLEAR CLEAR Urine pH 5.0 4.5-7.5 Urine Specific Anderson > 1.045 1.000-1.030 Urine Protein TRACE NEG Urine Glucose (UA) NEG NEG Urine Ketones NEG NEG Urine Occult Blood 3+ NEG Urine Nitrite NEG NEG Urine Bilirubin NEG NEG Urine Urobilinogen NEG NEG Urine Leukocyte Esterase NEG NEG Urine WBC (Auto) 5-10 0-5 /hpf Urine RBC (Auto) 10-30 0-4 /hpf Urine Hyaline Casts (Auto) 0 0-5 /lpf Urine Epithelial Cells (Auto) 0-5 0-5 /lpf Urine Bacteria (Auto) NEG NEG Urine Crystals NONE PRSENT Urine Yeast (Auto) NONE PRSENT Test 02/12/18 06:29 02/12/18 08:05 Range/Units White Blood Count 15.26 4.8-10.8 K/uL Red Blood Count 4.26 4.7-6.1 M/uL Hemoglobin 10.2 14.0-18.0 g/dL Hematocrit 35.0 42-52 % Mean Corpuscular Volume 82.2 80-100 fL Mean Corpuscular Hemoglobin 23.9 25-34 pg Mean Corpuscular Hemoglobin Concent 29.1 32-36 g/dl RDW Standard Deviation 48.7 36.4-46.3 fL RDW Coefficient of Variation 16.1 11.5-14.5 % Platelet Count 343 130-400 K/uL Mean Platelet Volume 9.4 7.4-10.4 fL Sodium Level 139 136-145 mmol/L Potassium Level 4.3 3.5-5.1 mmol/L Chloride Level 104 98-107 mmol/L Carbon Dioxide Level 31 21-32 mmol/L Anion Gap 4.0 3-11 mmol/L Blood Urea Nitrogen 18 7-18 mg/dl Creatinine 0.99 0.60-1.40 mg/dl Est Creatinine Clear Calc Drug Dose 68.1 ml/min Estimated GFR () 89.7 Estimated GFR (Non- 77.4 BUN/Creatinine Ratio 18.2 10-20 Random Glucose 98 70-99 mg/dl Calcium Level 9.7 8.5-10.1 mg/dl Magnesium Level 2.2 1.8-2.4 mg/dl Prothrombin Time 28.7 9.0-12.0 SECONDS Prothromb Time International Ratio 2.8 0.9-1.1 Microbiology Results 02/11/18 MRSA DNA Surveillance Screen - Final, Complete Specimen Negative for MRSA by DNA Probe 02/11/18 Gram Stain - Final, Resulted 02/11/18 Sputum Culture, Resulted Pending Diagnostic Radiology Please refer to HPI EKG Sinus tachycardia weight 120 no signs of acute ischemic changes/typical read as there is a wandering baseline Impression Assessment and Plan 67-year-old gentleman with newly diagnosed squamous cell carcinoma of the lung admitted with progressive hypoxemia: 1. Hypoxemia: High probability combination of newly diagnosed pulmonary emboli as well as underlying very severe COPD with an FEV1 of 27%. At this time I suggest we continue on current COPD management and decrease his prednisone to 40 mg daily starting on 02/13/2018. Patient does note dramatic improvement in his respiratory status since his arrival. 2. Home emboli: Whether these are clot formation and/or tumor formation I do suggest the patient continue on anticoagulation at this time with Lovenox. There is new data suggesting that pulmonary elias secondary to tumor burden is well controlled on Xarelto. I will speak to oncology at this time as a mom may require further investigative studies which Xarelto may make difficult to perform. 3. Leukocytosis: At this time the patient is on antibiotics but I will hold/ discontinue as the patient's pro-calcitonin which is notably sensitive for bacterial infections is notably within normal limits. We will continue to monitor the patient but if he does spike fever or show signs of clinical regression will reinitiate antimicrobials for approximately 7-10 day window.
[2018-02-12] MEDS ORDERED: GADAVIST IV PRN (15:45)
--- NOTE | 2018-02-12 15:55 | DIAGNOSTIC IMAGING REPORT ---
MRI OF THE BRAIN COMBO CLINICAL HISTORY: Lung cancer. Staging examination. COMPARISON STUDY: No priors. TECHNIQUE: MRI of the brain was performed utilizing various T1 and T2-weighted sequences in the axial, sagittal, and coronal planes. Contrast-enhanced sequences were acquired following the administration of 7 cc of Gadavist. FINDINGS: Brain parenchyma: There are age-related involutional changes noting mild to moderate subcortical and periventricular microangiopathic disease. There is no hemorrhage or mass effect. There is no restricted diffusion to suggest acute ischemia. No enhancing mass lesion is identified on the postcontrast images. Singh-white matter differentiation is preserved. No extra-axial fluid collection is seen. The cerebellar tonsils are normal in configuration. Ventricles, sulci, and cisterns: Prominent secondary to involutional change. Pituitary and sella: Partially empty sella is incidentally noted. Intracranial vasculature: Normal flow voids are maintained at the skull base. Orbits: The bony orbits are grossly intact. Orbital contents are normal in appearance. Sinuses and mastoids: Clear. Calvarium: Unremarkable. Cervical cord: Partially visualized cervical spinal cord is normal in morphology and signal intensity. IMPRESSION: No acute intracranial abnormality. Specifically, there is no evidence of intracranial metastatic disease. Electronically signed by: Finn Nichole M.D. 02/12/2018 3:54 PM Dictated Date/Time: 02/12/2018 3:49 PM
--- NOTE | 2018-02-12 16:09 | DIAGNOSTIC IMAGING REPORT ---
CT ABD/PELVIS IV AND ORAL CONT CLINICAL HISTORY: Squamous cell carcinoma of the lung. Staging procedure. COMPARISON STUDY: Chest CT dated 02/11/2018 TECHNIQUE: Following the IV administration of 116 mL of [id number]-320, CT scan of the abdomen and pelvis was performed from the lung bases to the proximal femurs. Images are reviewed in the axial, sagittal, and coronal planes. IV contrast was administered without complication. A dose lowering technique was utilized adhering to the principles of ALARA. CT DOSE: 558.68 mGy.cm FINDINGS: Lower chest: There is a partially visualized 5 cm right lower lobe pulmonary mass. In addition there is a 13 mm right lower lobe pulmonary nodule. There is a cavitary 25 mm right lower lobe pulmonary nodule. There is a cavitary 20 mm right lower lobe pulmonary nodule. There is a small right pleural effusion, and there are right lower lobe atelectatic changes. Liver: No space-occupying hepatic masses are visualized. Gallbladder: Unremarkable. Spleen: Normal in size and attenuation. Pancreas: Unremarkable. Adrenal glands: There is an 18 mm left adrenal gland nodule Kidneys: There are multiple bilateral renal cysts the largest in the left measures 8.5 cm. The largest in the right measures 3.3 cm. There is a suspected 6 mm left renal calculus. Hyperdense material within the right collecting system likely represents contrast excretion. Bowel: There is a mildly distended debris-filled stomach. There are no transition zones indicate bowel obstruction. There is colonic diverticulosis. There are no acute peridiverticular inflammatory changes. There is no evidence of acute appendicitis. Peritoneum: There is no intraperitoneal free air or abdominal ascites. Vasculature: The abdominal aorta is normal in course and caliber. Adenopathy: There is no pathologic adenopathy by size criteria. Pelvic viscera: The bladder, and pelvic viscera are unremarkable. Skeletal structures: There is a 13 mm lytic focus within the left iliac bone. IMPRESSION: 1. No CT evidence of hepatic metastasis 2. 18 mm left adrenal nodule 3. Indeterminate 13 mm lytic focus within the left iliac bone 4. No evidence of pathologic adenopathy by size criteria 6. Left-sided nephrolithiasis 7. Large renal cysts Electronically signed by: Cristopher Crum M.D. 02/12/2018 4:08 PM Dictated Date/Time: 02/12/2018 4:00 PM
[2018-02-12] MEDS ORDERED: AMOXICILLIN/CLAVULANATE TAB 875 MG TAB PO SCH (16:45)
[2018-02-12] MEDS ORDERED: NURSING VERBAL MED ORDER ONE (23:00)
[2018-02-12] MEDS ORDERED: SODIUM CHLORIDE 0.9% 1000ML 250 ML IV SCH (23:15)
[2018-02-13] VITALS (20 sets, daily range): BP systolic 94–144; BP diastolic 42–85; PULSE 90–135; TEMP 36.5–36.8; O2SAT 77–98
[2018-02-13] MEDS: ALBUT/IPRATROP 3MG/0.5MG NEB 3 ML VIAL INH SCH ×2 (01:35→07:11)
[2018-02-13] MEDS ORDERED: METOPROLOL TARTRATE 1 MG/ML VIAL IV STA (01:44)
[2018-02-13 02:38] LABS: HEMATOCRIT 39.6 % (42-52); HEMOGLOBIN 11.6 g/dL (14.0-18.0); MEAN CELL VOLUME 84.6 fL (80-100); MEAN CORPUSCULAR HEMOGLOBIN 24.8 pg (25-34); MEAN CORPUSCULAR HGB CONC 29.3 g/dl (32-36); MEAN PLATELET VOLUME 9.5 fL (7.4-10.4); PLATELET COUNT 338 K/uL (130-400); RED CELL DISTRIBUTION WIDTH SD 49.4 fL (36.4-46.3); WHITE BLOOD COUNT 14.52 K/uL (4.8-10.8)
[2018-02-13 03:11] LABS: CREATININE 1.18 mg/dl (0.60-1.40); PHOSPHORUS 4.1 mg/dl (2.5-4.9); POTASSIUM 5.1 mmol/L (3.5-5.1)
[2018-02-13 06:20] LABS: BASO % 0.1 %; BASO ABS # 0.01 K/uL (0-0.2); EOS % 0.2 %; EOS ABS # 0.03 K/uL (0-0.5); HEMATOCRIT 39.5 % (42-52); HEMOGLOBIN 11.3 g/dL (14.0-18.0); IG# 0.04 K/uL (0.00-0.02); INR 1.5 (0.9-1.1); LYMPH ABS # 0.59 K/uL (1.2-3.4); MEAN CELL VOLUME 85.1 fL (80-100); MEAN CORPUSCULAR HEMOGLOBIN 24.4 pg (25-34); MEAN CORPUSCULAR HGB CONC 28.6 g/dl (32-36); MEAN PLATELET VOLUME 9.2 fL (7.4-10.4); MONO ABS # 0.73 K/uL (0.11-0.59); NEUT % 90.4 %; NEUT ABS # 13.29 K/uL (1.4-6.5); PLATELET COUNT 341 K/uL (130-400); RED CELL DISTRIBUTION WIDTH CV 15.9 % (11.5-14.5); RED CELL DISTRIBUTION WIDTH SD 49.2 fL (36.4-46.3); WHITE BLOOD COUNT 14.69 K/uL (4.8-10.8)
[2018-02-13 06:46] LABS: ALBUMIN 2.4 gm/dl (3.4-5.0); ALKALINE PHOSPHATASE 89 U/L (45-117); ALT/SGPT 19 U/L (12-78); AST/SGOT 25 U/L (15-37); BLOOD UREA NITROGEN 23 mg/dl (7-18); CALCIUM 10.3 mg/dl (8.5-10.1); CARBON DIOXIDE 33 mmol/L (21-32); CREATININE 1.17 mg/dl (0.60-1.40); GLUCOSE 109 mg/dl (70-99); POTASSIUM 5.5 mmol/L (3.5-5.1); SODIUM 140 mmol/L (136-145); TOTAL PROTEIN 7.5 gm/dl (6.4-8.2)
[2018-02-13] MEDS ORDERED: ENOXAPARIN 1 MG/KG SQ SCH (07:45)
[2018-02-13] MEDS: ENOXAPARIN 80 MG/0.8 ML SYR SQ SCH ×2 (08:23→21:09)
--- NOTE | 2018-02-13 08:25 | DIAGNOSTIC IMAGING REPORT ---
CHEST ONE VIEW PORTABLE HISTORY: 67 years-old Male hypoxia,lung cancer acute shortness of breath with hypoxia COMPARISON: CTA chest 02/11/2018 TECHNIQUE: Portable AP view of the chest FINDINGS: Cardiac silhouette is within normal limits. No pneumothorax. Trace right pleural effusion. Large cavitary mass of the right lower lobe redemonstrated measuring up to 8.7 cm in greatest dimension. Emphysema with chronic interstitial coarsening. Bones of the chest appear grossly intact. There are degenerative changes of the shoulders and spine. IMPRESSION: 1. Large cavitary mass of the right lower lobe redemonstrated with trace right pleural effusion. 2. Emphysema. The above report was generated using voice recognition software. It may contain grammatical, syntax or spelling errors. Electronically signed by: Yahir Hedrick M.D. 02/13/2018 8:24 AM Dictated Date/Time: 02/13/2018 8:21 AM
[2018-02-13] MEDS ORDERED: SODIUM POLYST. SULF SUSP 15G/60ML PO ONE (08:30)
[2018-02-13] MEDS ORDERED: PIPERACILL/TAZOBAC CONSULT ACTIVE PRN ×2 (09:45→15:00)
[2018-02-13] MEDS ORDERED: VANCOMYCIN CONSULT ACTIVE PRN (09:45)
--- NOTE | 2018-02-13 09:56 | Hospitalist Progress Note ---
Hospitalist Progress Note Date of Service Feb 13, 2018. Subjective Pt evaluation today including: conversation w/ patient, conversation w/ business consultant (Pulmonology) Voiding: no voiding problems Overnight developed significant ST in the 150s at times, became more tachypneic and hypoxic, now on 10 L Oxy Mask. He denies SOB, but is obviously retracting in the abdomen. Repeat CXR personally reviewed and appears stable but is likely an expiratory film. Denies chest pain, abd pain. He is moving his bowels Constitutional: No fever All Other Systems: Reviewed and Negative Objective Vital Signs Date Time Temp Pulse Resp B/P (MAP) Pulse Ox O2 Delivery O2 Flow Rate FiO2 02/13/18 08:20 Oxymask 10.0 02/13/18 07:43 36.5 111 22 103/65 (78) 94 Nasal Cannula 10.0 02/13/18 07:11 111 20 94 Diffusion Mask 10.0 02/13/18 04:22 36.8 122 36 100/63 (75) 96 Oxymask 10.0 02/13/18 01:35 135 77 Nasal Cannula 4.0 02/12/18 23:39 36.4 131 38 128/65 (86) 94 Nasal Cannula 4.0 02/12/18 22:15 137 22 95/54 (68) 93 Nasal Cannula 4.0 02/12/18 20:00 Nasal Cannula 4.0 02/12/18 19:14 36.4 128 18 115/68 (84) 95 Nasal Cannula 4.0 02/12/18 19:00 110 20 93 Nasal Cannula 4.0 02/12/18 16:14 36.5 110 20 128/75 (92) 93 Nasal Cannula 4.0 02/12/18 14:27 106 20 94 Nasal Cannula 4.0 02/12/18 11:53 36.8 90 18 100/62 (75) 98 Physical Exam General Appearance: + mild distress (with abd retractions, tachypnea) Eyes: normal inspection, sclerae normal ENT: hearing grossly normal, + pertinent finding (OxyMask in place) Neck: trachea midline Respiratory/Chest: + decreased breath sounds (on right lower and middle lung browning), + accessory muscle use, + crackles (at right base), + wheezing (diffuse ) Cardiovascular: no murmur, + tachycardia (with reg rhythm) Abdomen: normal bowel sounds, non tender, soft Extremities: no calf tenderness, + swelling (trace pitting edema legs bilat with chronic venous stasis changes) Neurologic/Psychiatric: no motor/sensory deficits, alert, normal mood/affect Skin: warm/dry, no rash Laboratory Results Last 24 Hours Test 02/13/18 02:22 02/13/18 05:47 02/13/18 09:32 White Blood Count 14.52 K/uL 14.69 K/uL Red Blood Count 4.68 M/uL 4.64 M/uL Hemoglobin 11.6 g/dL 11.3 g/dL Hematocrit 39.6 % 39.5 % Mean Corpuscular Volume 84.6 fL 85.1 fL Mean Corpuscular Hemoglobin 24.8 pg 24.4 pg Mean Corpuscular Hemoglobin Concent 29.3 g/dl 28.6 g/dl RDW Standard Deviation 49.4 fL 49.2 fL RDW Coefficient of Variation 16.0 % 15.9 % Platelet Count 338 K/uL 341 K/uL Mean Platelet Volume 9.5 fL 9.2 fL Sodium Level 139 mmol/L 140 mmol/L Potassium Level 5.1 mmol/L 5.5 mmol/L Chloride Level 104 mmol/L 104 mmol/L Carbon Dioxide Level 31 mmol/L 33 mmol/L Anion Gap 4.0 mmol/L 3.0 mmol/L Blood Urea Nitrogen 21 mg/dl 23 mg/dl Creatinine 1.18 mg/dl 1.17 mg/dl Est Creatinine Clear Calc Drug Dose 57.1 ml/min 57.6 ml/min Estimated GFR () 72.5 73.3 Estimated GFR (Non- 62.6 63.2 BUN/Creatinine Ratio 18.0 19.2 Random Glucose 134 mg/dl 109 mg/dl Calcium Level 10.0 mg/dl 10.3 mg/dl Phosphorus Level 4.1 mg/dl Magnesium Level 2.2 mg/dl 2.4 mg/dl Thyroid Stimulating Hormone (TSH) 0.773 uIu/ml Neutrophils (%) (Auto) 90.4 % Lymphocytes (%) (Auto) 4.0 % Monocytes (%) (Auto) 5.0 % Eosinophils (%) (Auto) 0.2 % Basophils (%) (Auto) 0.1 % Neutrophils # (Auto) 13.29 K/uL Lymphocytes # (Auto) 0.59 K/uL Monocytes # (Auto) 0.73 K/uL Eosinophils # (Auto) 0.03 K/uL Basophils # (Auto) 0.01 K/uL Immature Granulocyte % (Auto) 0.3 % Immature Granulocyte # (Auto) 0.04 K/uL Prothrombin Time 15.9 SECONDS Prothromb Time International Ratio 1.5 Total Bilirubin 0.2 mg/dl Direct Bilirubin < 0.1 mg/dl Aspartate Amino Transf (AST/SGOT) 25 U/L Alanine Aminotransferase (ALT/SGPT) 19 U/L Alkaline Phosphatase 89 U/L Total Protein 7.5 gm/dl Albumin 2.4 gm/dl Diagnostic Results CXR image personally reviewed by me and agree with report: CHEST ONE VIEW PORTABLE HISTORY: 67 years-old Male hypoxia,lung cancer acute shortness of breath with hypoxia COMPARISON: CTA chest 02/11/2018 TECHNIQUE: Portable AP view of the chest FINDINGS: Cardiac silhouette is within normal limits. No pneumothorax. Trace right pleural effusion. Large cavitary mass of the right lower lobe redemonstrated measuring up to 8.7 cm in greatest dimension. Emphysema with chronic interstitial coarsening. Bones of the chest appear grossly intact. There are degenerative changes of the shoulders and spine. IMPRESSION: 1. Large cavitary mass of the right lower lobe redemonstrated with trace right pleural effusion. 2. Emphysema. CT abd/pel: IMPRESSION: 1. No CT evidence of hepatic metastasis 2. 18 mm left adrenal nodule 3. Indeterminate 13 mm lytic focus within the left iliac bone 4. No evidence of pathologic adenopathy by size criteria 6. Left-sided nephrolithiasis 7. Large renal cysts MRI Brain- IMPRESSION: No acute intracranial abnormality. Specifically, there is no evidence of intracranial metastatic disease. Assessment and Plan This pt is a 67 y/o M Hx advanced COPD with chronic hypoxic respiratory failure , recent Dx of R lung squamous cell CA, ARVIN infection, CAD, PVD, continues to smoke. The pt is dependent on 3L 02. He presented from the Oncology clinic with progressively worsening SOB over the past day and hypoxia. He presented to the ER where an initial oxygen saturation was in the low 80s on his baseline 3L. He was sent for a CTA due to hypoxia which demonstrated several small third order emboli involving the right and to a lesser extent left lung base. A large, invasive R lung mass is again confirmed. The pt's INR is 2.8 on admission. His family states that recently, numbers have been subtherapeutic due to multiple antibiotics used to treat ARVIN. He does not complain of CP and could not confirm a fever. Initial labs are notable for leukocytosis. Acute on chronic respiratory failure with Hypoxia - multifactorial, likely secondary to COPD exacerbation, large squamous cell lung CA, and multiple small PEs. Initially was improved with IV steroids and received abx, nebs. Today with worsening respiratory distress and worsening hypoxia CXR stable but possibly expiratory film due to tachypnea - Initially treated for PNA, but PCT negative, afebrile, leukocytosis could be reactive-abx discontinued yesterday, but given worsening pulm status today, will resatrt Zosyn and Vanc as recommended by Pulm -check ABG now-if hypercapnic. will place on BiPAP, if strictly hypoxic, will switch to HFNC -follow CXR Squamous Cell CA Lung-at least stage 3A with invasion into vertebral body, with pulm nodules/local spread--> CT abd/pel with Left 18mm adrenal nodule and left iliac bone lytic lesion could possibly also be mets. Brain MRI negative for mets -appreciate Pulm input, f/u with Oncology after dc -will likely need Chemoradiation and possible surgical resection-consider Rad Onc consult inpatient? Will discuss with Oncology, but no chemo needed in hospital SVT/Sinus tachycardia/NSVT-short burst of SVT on day 2, asymptomatic; now with persistent ST likely secondary to IV steroids, lung process,nebs; with a few 2- 3 beat runs of VT, one [address] a physiologic response and won't be too aggressive with treating tachycardia , but treat underlying cause -check ECHO -start NS 75 mls/hr -continue tele monitoring -weaning down steroids -change nebs to Levalbuterol/Atrovent Hypercalcemia-corrected calcium up to 11.58, could be dehydration vs from malignancy? 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 ECG no peaked T waves -give 1 dose Kayexalate now -follow BMP CAD - no evidence of ACS - cont daily ASA Tobacco user- Discussed smoking cessation ARVIN-dxd on DNA probe from bronch in [place] in December 2017. No need for treatment as per Pulm, needs treatment for SCC lung and meds for ARVIN high risk -dc ethambutol, rifampin, and azithro upon dc COPD Exacerbation-weaned to prednisone today 40mg and slow taper down -continue nebs, inhalers -checking ABG as above Acute PEs-no DVT, has h/o PEs, with CA, could be tumor emboli as per Pulm, cost of taking Xarelto is $100/month vs Lovenox $374/month with prior auth. -permanently dc'd coumadin -follow INR--> down to 1.5 today and will start Lovenox 1mg/kg q12h for now -will likely end up transitioning to Xarelto as is cheaper prior to discharge Proph-Lovenox Dispo-remain on tele
[2018-02-13] MEDS ORDERED: LEVALBUTEROL 0.63MG/3 ML NEB INH PRN (10:00)
[2018-02-13] MEDS: SODIUM CHLORIDE 0.9% 1000ML 1,000 ML IV SCH (10:58)
[2018-02-13] MEDS ORDERED: VANCOMYCIN IV 1,750 MG in SODIUM CHLORIDE 0.9% 500ML 500 ML IV ONE (11:00)
[2018-02-13] MEDS ORDERED: PIPERACILL/TAZOBAC IV 3.375 GM in D5W 100 ML IV ONE (11:00)
[2018-02-13] MEDS ORDERED: PIPERACILL/TAZOBAC IV 3.375 GM in DEXTROSE 5% 100ML 100 ML IV SCH (12:00)
[2018-02-13] MEDS ORDERED: VANCOMYCIN TROUGH ONE (12:30)
--- NOTE | 2018-02-13 13:00 | ECHOCARDIOGRAM REPORT ---
*NOTICE TO RECEIVING LIBERTARIAN AGENCY This information is strictly Confidential and protected under [place] law. [place] law prohibits you from making any further disclosure of this information unless further disclosure is expressly permitted by the written consent of the person to whom it pertains or is authorized by law. A general authorization for the release of medical or other information is not sufficient for this purpose. Hospital accepts no responsibility if the information is made available to any other person, INCLUDING THE PATIENT. Interpretation Summary * Name: KELLY LEBLANC JR Study Date: 02/13/2018 09:38 AM BP: 103/65 mmHg * Patient Location: .2E\S\E206\S\1 HR: 111 * : 1950 (M/d/yyyy) Gender: Male Height: 67 in * Age: 67 yrs Ethnicity: CA Weight: 155 lb * Ordering Physician: Madyson Gibbons * Referring Physician: Self, Referred * Performed By: Libia York RDCS * * Reason For Study: Supraventricular Tachycardia * BSA: 1.8 m2 * -- Conclusions -- * Left ventricular systolic function is normal. * Right ventricular systolic pressure is normal. * Grade I diastolic dysfunction, (abnormal relaxation pattern). Procedure Details * A complete two-dimensional transthoracic echocardiogram was performed (2D, M-mode, Doppler and color flow Doppler). Left Ventricle * The left ventricle is normal in size. * There is normal left ventricular wall thickness. * Ejection Fraction = 50-55%. * Left ventricular systolic function is normal. * Grade I diastolic dysfunction, (abnormal relaxation pattern). * The left ventricular wall motion is normal. Right Ventricle * The right ventricle is grossly normal size. * The right ventricular systolic function is normal. Atria * The left atrial size is normal. * Right atrial size is normal. Mitral Valve * The mitral valve anatomy is normal. * There is trace mitral regurgitation. Tricuspid Valve * The tricuspid valve is not well visualized, but is grossly normal. * There is mild tricuspid regurgitation. * Right ventricular systolic pressure is normal. Aortic Valve * The aortic valve is normal in structure and function. * No hemodynamically significant valvular aortic stenosis. * There is no significant aortic regurgitation. Pulmonic Valve * The pulmonic valve is not well visualized. Great Vessels * The aortic root is normal size. Pericardium/Pleural * There is no pericardial effusion. Great Vessels * Normal inferior vena cava diameter and respiratory variation suggests normal central venous pressure. MMode 2D Measurements and Calculations IVSd 0.79 cm IVSs 1.3 cm LVIDd 4.9 cm LVIDs 3.6 cm LVPWd 0.92 cm LVPWs 1.7 cm IVS/LVPW 0.85 FS 26.6 % EDV(Teich) 115.2 ml ESV(Teich) 55.5 ml EF(Teich) 51.8 % EDV(cubed) 120.9 ml ESV(cubed) 47.9 ml EF(cubed) 60.4 % % IVS thick 63.6 % % LVPW thick 85.0 % LV mass(C)d 145.8 grams LV mass(C)dI 80.3 grams/m\S\2 LV mass(C)s 203.8 grams LV mass(C)sI 112.3 grams/m\S\2 SV(Teich) 59.7 ml SI(Teich) 32.9 ml/m\S\2 SV(cubed) 73.0 ml SI(cubed) 40.2 ml/m\S\2 Ao root diam 3.3 cm Ao root area 8.7 cm\S\2 ACS 2.1 cm LA dimension 3.1 cm LA/Ao 0.94 LVAd ap4 33.8 cm\S\2 LVLd ap4 9.2 cm EDV(MOD-sp4) 105.9 ml EDV(sp4-el) 106.1 ml LVAs ap4 21.9 cm\S\2 LVLs ap4 7.7 cm ESV(MOD-sp4) 53.5 ml ESV(sp4-el) 52.7 ml EF(MOD-sp4) 49.4 % EF(sp4-el) 50.3 % LVAd ap2 37.6 cm\S\2 LVLd ap2 9.5 cm EDV(MOD-sp2) 127.7 ml EDV(sp2-el) 126.7 ml LVAs ap2 20.2 cm\S\2 LVLs ap2 6.9 cm ESV(MOD-sp2) 51.6 ml ESV(sp2-el) 49.8 ml EF(MOD-sp2) 59.6 % EF(sp2-el) 60.7 % LVLd %diff 3.2 % EDV(MOD-bp) 117.1 ml LVLs %diff -11.18 % ESV(MOD-bp) 55.1 ml EF(MOD-bp) 52.9 % SV(MOD-sp4) 52.4 ml SI(MOD-sp4) 28.9 ml/m\S\2 SV(MOD-sp2) 76.1 ml SI(MOD-sp2) 42.0 ml/m\S\2 SV(MOD-bp) 62.0 ml SI(MOD-bp) 34.2 ml/m\S\2 SV(sp4-el) 53.4 ml SI(sp4-el) 29.4 ml/m\S\2 SV(sp2-el) 76.9 ml SI(sp2-el) 42.4 ml/m\S\2 Doppler Measurements and Calculations MV E max mason 62.3 cm/sec MV A max mason 96.6 cm/sec MV E/A 0.64 MV dec time 0.16 sec Ao V2 max 132.7 cm/sec Ao max PG 7.0 mmHg Ao max PG (full) 1.8 mmHg LV V1 max PG 5.3 mmHg LV V1 max 114.7 cm/sec PA V2 max 92.1 cm/sec PA max PG 3.4 mmHg TR max mason 233.7 cm/sec
--- NOTE | 2018-02-13 13:16 | Pulmonology Progress Note ---
Pulmonary Progress Note Date of Service Feb 13, 2018. Attending Dr. Magallon Subjective Patient has difficulty evening noting increasing shortness of breath and associated diarrhea last evening as well as some palpitations. He does note after defecating 3 times/diarrhea he has had decreasing respiratory insufficiency with overall improvement. Currently still notes some mild dyspnea at rest. Objective Patient lying in bed looking fatigued using accessory muscles during our conversation notably tachypneic: PmHx: Squamous cell carcinoma of the lung, Very severe COPD (FEV1: 27%) with significant reversible component, CAD (coronary artery disease), Chronic anticoagulation, CAD/DC, psoriasis, PVD, tobacco use disorder PsHx: Colonoscopy, S/P femoral-popliteal bypass surgery, to amputation, right inguinal hernia repair, transthoracic needle aspiration 01/20/2018, bronchoscopy /EBUS Vital signs: Patient notably hypoxic via SaO2 requiring BiPAP and high-flow O2 Respiratory: Increased rhonchi with notably decreased overall inspiratory expiratory volumes Cardiac: S1-S2 tachycardic irregular rhythm Abdomen: Positive bowel sounds but mildly distended, no tenderness to deep palpation no rebound appreciated Current inpatient own hospital workup: WBC: 15K---15K PLT: 343K INR: 2.8 Procalcitonin: 0.25 AB.20/83/109/32 on 10L AB.29/66/60/31 on BiPaP 15/5 FiO2 35% Bilateral lower extremity DVT study: No sonographic evidence of DVT CTA: Supple small 3rd order emboli involving the right and to a lesser extent left lung base, large invasive right lower lobe mass/cavitating, as well as thoracic spinal, additional scattered nodular densities of the ride hemithoracic cavity consistent with metastatic foci,, developing upper abdominal retro crucial adenopathy In-hospital Pulmonary Medications: 1. Vancomycin IV 2. Xopenex/Atrovent nebulizer 3. Prednisone 40 mg 4. Zosyn IV 5. Lovenox 70 mg b.i.d. Assessment & Plan 67-year-old gentleman with newly diagnosed squamous cell carcinoma of the lung now with progressive respiratory insufficiency: 1. Respiratory Insufficiency: Patient currently having hypercapnic/hypoxic respiratory insufficiency having to moved to BiPAP for respiratory support. Most recent ABG showed continuation of his hypercapnia as well as hypoxia we have increased his BiPAP to 15/5 with his rate now placed at 20 giving him but average tidal volume around 500 cc and his FiO2 to 50%. As this patient is notably complicated a believe consult in the intensive care unit at this time is appropriate as he is becoming a higher level of nursing care. As the patient is PaO2 an SaO2 seem to be correlating monitoring his hypercapnia with VBG is would be appropriate at this time. 2. Pulmonary Emboli: Recent CT angio of the chest does show multiple subsegmental emboli in the bilateral lower lobes. These could be tumor emboli verses clots/thrombotic in nature. Patient is currently on Lovenox. 3. Leukocytosis: Patient's procalcitonin was within normal limits but he is notably clinically declining and do this we have decided to repeat start IV Zosyn continue vancomycin at this time and continue to monitor this patient closely. Data Medications: Current Inpatient Medications Medications (Trade) Dose Ordered Sig/Danae Route Start Time Stop Time Status Last Admin Dose Admin Ioversol (Optiray 320) 125 ml UD PRN IV 02/11/18 15:00 02/15/18 14:59 Acetaminophen (Tylenol Tab) 650 mg Q4H PRN PO 02/11/18 16:45 03/13/18 16:44 Al Hydrox/Mg Hydrox/Simethicone (Maalox Max Susp) 15 ml Q4H PRN PO 02/11/18 16:45 03/13/18 16:44 Magnesium Hydroxide (Milk Of Magnesia Susp) 30 ml Q12H PRN PO 02/11/18 16:45 03/13/18 16:44 Zolpidem Tartrate (Ambien Tab) 5 mg HSZ PRN PO 02/11/18 16:45 03/13/18 16:44 Ondansetron HCl (Zofran Inj) 4 mg Q6H PRN IV 02/11/18 16:45 03/13/18 16:44 02/12/18 20:37 4 MG Morphine Sulfate (MoRPHine SULFATE INJ) 2 mg Q30M PRN IV 02/11/18 16:45 02/25/18 16:44 Polyethylene (Miralax Powder Packet) 17 gm DAILY PRN PO 02/11/18 17:00 03/13/18 16:59 Ioversol (Optiray 320) 100 ml UD PRN IV 02/12/18 12:00 02/16/18 11:59 Gadobutrol (Gadavist) 7 mmol UD PRN IV 02/12/18 15:45 02/16/18 15:44 Enoxaparin Sodium (Lovenox Inj) 70 mg Q12 SQ 02/13/18 09:00 03/15/18 08:59 02/13/18 08:23 70 MG Sodium Chloride 1,000 ml @ 75 mls/hr [id number] IV 02/13/18 09:30 03/15/18 09:29 02/13/18 10:58 75 MLS/HR Miscellaneous Information (Consult) 1 ea UD PRN N/A 02/13/18 09:45 03/15/18 09:44 Vancomycin HCl 1000 mg/Sodium Chloride 270 ml @ 125 mls/hr Q12 IV 02/13/18 21:00 02/20/18 20:59 UNV Vancomycin HCl (Consult) 1 ea UD PRN N/A 02/13/18 09:45 03/15/18 09:44 Levalbuterol (Xopenex 0.63 Mg/ 3 Ml Neb) 0.63 mg Q2H PRN INH 02/13/18 10:00 03/15/18 09:59 02/13/18 11:32 0.63 MG Ipratropium [place] (Atrovent 0.02% 0.5MG/2.5ML Neb) 0.5 mg Q6R INH 02/13/18 15:00 03/15/18 14:59 Levalbuterol (Xopenex 1.25MG/ 0.5ML Neb) 1.25 mg Q6R INH 02/13/18 15:00 03/15/18 14:59 Vancomycin HCl 1750 mg/Sodium Chloride 535 ml @ 200 mls/hr NOW ONCE IV 02/13/18 11:00 02/13/18 13:40 02/13/18 11:07 200 MLS/HR Methylprednisolone Sodium Succinate 20 mg/Syringe 0.32 ml @ 1.5 mls/min TID IV 02/13/18 14:00 03/15/18 13:59 UNV Vital Signs: Date Time Temp Pulse Resp B/P (MAP) Pulse Ox O2 Delivery O2 Flow Rate FiO2 02/13/18 11:40 36.7 112 26 94/59 (71) 82 BiPAP 02/13/18 11:10 98 20 88 BiPAP/CPAP 6.0 02/13/18 11:10 98 87 02/13/18 10:23 108 90 02/13/18 08:20 Oxymask 10.0 02/13/18 07:43 36.5 111 22 103/65 (78) 94 Nasal Cannula 10.0 02/13/18 07:11 111 20 94 Diffusion Mask 10.0 02/13/18 04:22 36.8 122 36 100/63 (75) 96 Oxymask 10.0 02/13/18 01:35 135 77 Nasal Cannula 4.0 02/12/18 23:39 36.4 131 38 128/65 (86) 94 Nasal Cannula 4.0 02/12/18 22:15 137 22 95/54 (68) 93 Nasal Cannula 4.0 02/12/18 20:00 Nasal Cannula 4.0 02/12/18 19:14 36.4 128 18 115/68 (84) 95 Nasal Cannula 4.0 02/12/18 19:00 110 20 93 Nasal Cannula 4.0 02/12/18 16:14 36.5 110 20 128/75 (92) 93 Nasal Cannula 4.0 02/12/18 14:27 106 20 94 Nasal Cannula 4.0 Laboratory Results: Last 24 Hours Test 02/13/18 02:22 02/13/18 05:47 02/13/18 09:42 02/13/18 12:08 White Blood Count 14.52 K/uL 14.69 K/uL Red Blood Count 4.68 M/uL 4.64 M/uL Hemoglobin 11.6 g/dL 11.3 g/dL Hematocrit 39.6 % 39.5 % Mean Corpuscular Volume 84.6 fL 85.1 fL Mean Corpuscular Hemoglobin 24.8 pg 24.4 pg Mean Corpuscular Hemoglobin Concent 29.3 g/dl 28.6 g/dl RDW Standard Deviation 49.4 fL 49.2 fL RDW Coefficient of Variation 16.0 % 15.9 % Platelet Count 338 K/uL 341 K/uL Mean Platelet Volume 9.5 fL 9.2 fL Sodium Level 139 mmol/L 140 mmol/L Potassium Level 5.1 mmol/L 5.5 mmol/L Chloride Level 104 mmol/L 104 mmol/L Carbon Dioxide Level 31 mmol/L 33 mmol/L Anion Gap 4.0 mmol/L 3.0 mmol/L Blood Urea Nitrogen 21 mg/dl 23 mg/dl Creatinine 1.18 mg/dl 1.17 mg/dl Est Creatinine Clear Calc Drug Dose 57.1 ml/min 57.6 ml/min Estimated GFR () 72.5 73.3 Estimated GFR (Non- 62.6 63.2 BUN/Creatinine Ratio 18.0 19.2 Random Glucose 134 mg/dl 109 mg/dl Calcium Level 10.0 mg/dl 10.3 mg/dl Phosphorus Level 4.1 mg/dl Magnesium Level 2.2 mg/dl 2.4 mg/dl Thyroid Stimulating Hormone (TSH) 0.773 uIu/ml Neutrophils (%) (Auto) 90.4 % Lymphocytes (%) (Auto) 4.0 % Monocytes (%) (Auto) 5.0 % Eosinophils (%) (Auto) 0.2 % Basophils (%) (Auto) 0.1 % Neutrophils # (Auto) 13.29 K/uL Lymphocytes # (Auto) 0.59 K/uL Monocytes # (Auto) 0.73 K/uL Eosinophils # (Auto) 0.03 K/uL Basophils # (Auto) 0.01 K/uL Immature Granulocyte % (Auto) 0.3 % Immature Granulocyte # (Auto) 0.04 K/uL Prothrombin Time 15.9 SECONDS Prothromb Time International Ratio 1.5 Total Bilirubin 0.2 mg/dl Direct Bilirubin < 0.1 mg/dl Aspartate Amino Transf (AST/SGOT) 25 U/L Alanine Aminotransferase (ALT/SGPT) 19 U/L Alkaline Phosphatase 89 U/L Total Protein 7.5 gm/dl Albumin 2.4 gm/dl Arterial Blood pH 7.20 7.29 Arterial Blood Partial Pressure CO2 83 mmHg 66 mmHg Arterial Blood Partial Pressure O2 109 mm/Hg 60 mm/Hg Arterial Blood HCO3 32 mmol/L 31 mmol/L Arterial Blood Oxygen Saturation 96.5 % 88.2 % Arterial Blood Base Excess 1.7 mEq/L 3.2 mEq/L Arterial Blood Gas Delivery 10L 35% Raad Test POS POS
[2018-02-13] MEDS ORDERED: ICU PROTOCOL FOR HYPERGLYCEMIA PRN (13:45)
[2018-02-13] MEDS: IPRATROPIUM BROMIDE NEB SOLN 0.02% 2.5 ML VIAL INH SCH ×2 (14:19→19:25)
[2018-02-13] MEDS: LEVALBUTEROL 1.25MG/0.5ML NEB INH SCH ×2 (14:19→19:24)
[2018-02-13] MEDS ORDERED: LEVALBUTEROL/IPRATROPIUM NEB INH SCH (15:00)
--- NOTE | 2018-02-13 15:20 | Critical Care Consultation ---
Critical Care Consultation Date of Consultation: Feb 13, 2018. Attending Physician: Madyson Gibbons MD Reason for Consultation: hypercarbic and hypoxic respiratory failure History of Present Illness Patient is a 67-year-old male who has a significant past medical history of oxygen dependent COPD wearing 3 L during the day and 4 L at night who was recently diagnosed with a lung mass and ARVIN infection. Patient was following up with Dr. Marucs of oncology for squamous cell carcinoma. Patient also has a history of blood clots and despite being on Coumadin had a subtherapeutic INR presumably being on 3 antibiotics for ARVIN. The patient was admitted on February 11 for pulmonary embolism and acute hypoxic respiratory failure. The patient was started on IV Zosyn and vancomycin as well as anticoagulation. The patient became more hypoxic and hypercarbic today prompting transfer to the ICU for possible need of mechanical ventilation. Patient has been on bilevel noninvasive therapy settings of 15/5 with a FiO2 of 50%. Past Medical/Surgical History COPD Squamous cell carcinoma Metastatic squamous cell carcinoma Pulmonary embolism Acute hypercarbic and hypoxic respiratory failure on chronic hypoxic respiratory failure Family History Patient reports no known family medical history. Social History Smoking Status: Former Smoker Marital Status: Housing Status: lives with significant other Allergies Coded Allergies: No Known Allergies (Unverified , 02/11/18) Home Medications Scheduled Albuterol Hfa (Ventolin Hfa), 2 PUFFS INH Q6H Aspirin (Aspirin Ec), 81 MG PO DAILY Azithromycin (Zithromax), 250 MG PO DAILY Ethambutol Hcl (Ethambutol Hcl), 1,000 MG PO DAILY Furosemide (Lasix), 40 MG PO QAM Home O2 Therapy (Oxygen), 2 LITERS NA DAILY Home O2 Therapy (Oxygen), 4 LITERS NA HS Montelukast Sodium (Singulair), 10 MG PO QPM Rifampin (Rifadin), 300 MG PO BID Umeclidinium-Vilanterol (Anoro Ellipta 62.5-25 Mcg/INH), 1 PUFF INH QAM Warfarin Sod (Jantoven), 10 MG PO DAILY Current Inpatient Medications Current Inpatient Medications Medications (Trade) Dose Ordered Sig/Danae Route Start Time Stop Time Status Last Admin Dose Admin Acetaminophen (Tylenol Tab) 650 mg Q4H PRN PO 02/11/18 16:45 03/13/18 16:44 Al Hydrox/Mg Hydrox/Simethicone (Maalox Max Susp) 15 ml Q4H PRN PO 02/11/18 16:45 03/13/18 16:44 Magnesium Hydroxide (Milk Of Magnesia Susp) 30 ml Q12H PRN PO 02/11/18 16:45 03/13/18 16:44 Zolpidem Tartrate (Ambien Tab) 5 mg HSZ PRN PO 02/11/18 16:45 03/13/18 16:44 Ondansetron HCl (Zofran Inj) 4 mg Q6H PRN IV 02/11/18 16:45 03/13/18 16:44 02/12/18 20:37 4 MG Morphine Sulfate (MoRPHine SULFATE INJ) 2 mg Q30M PRN IV 02/11/18 16:45 02/25/18 16:44 Polyethylene (Miralax Powder Packet) 17 gm DAILY PRN PO 02/11/18 17:00 03/13/18 16:59 Enoxaparin Sodium (Lovenox Inj) 70 mg Q12 SQ 02/13/18 09:00 03/15/18 08:59 02/13/18 08:23 70 MG Sodium Chloride 1,000 ml @ 75 mls/hr [id number] IV 02/13/18 09:30 03/15/18 09:29 02/13/18 10:58 75 MLS/HR Vancomycin HCl (Consult) 1 ea UD PRN N/A 02/13/18 09:45 03/15/18 09:44 Levalbuterol (Xopenex 0.63 Mg/ 3 Ml Neb) 0.63 mg Q2H PRN INH 02/13/18 10:00 03/15/18 09:59 02/13/18 11:32 0.63 MG Ipratropium [place] (Atrovent 0.02% 0.5MG/2.5ML Neb) 0.5 mg Q6R INH 02/13/18 15:00 03/15/18 14:59 Levalbuterol (Xopenex 1.25MG/ 0.5ML Neb) 1.25 mg Q6R INH 02/13/18 15:00 03/15/18 14:59 Methylprednisolone Sodium Succinate 20 mg/Syringe 0.32 ml @ 1.5 mls/min TID IV 02/13/18 14:00 03/15/18 13:59 Miscellaneous Information (Icu Protocol For Hyperglycemia) 1 ea PRN PRN N/A 02/13/18 13:45 02/15/18 13:44 Miscellaneous Information (Consult) 1 ea UD PRN N/A 02/13/18 15:00 03/15/18 14:59 Piperacillin Sod/ Tazobactam Sod 3.375 gm/Dextrose 115 ml @ 28.75 mls/ hr Q8H IV 02/13/18 16:00 02/20/18 15:59 Vancomycin HCl 1000 mg/Sodium Chloride 270 ml @ 125 mls/hr Q12H IV 02/14/18 00:00 02/21/18 00:00 Review of Systems Constitutional: + weight loss, No fever Respiratory: + shortness of breath, + dyspnea on exertion Cardiovascular: No chest pain Physical Exam Date Time Temp Pulse Resp B/P (MAP) Pulse Ox O2 Delivery O2 Flow Rate FiO2 02/13/18 14:19 96 25 92 BiPAP/CPAP 8.0 02/13/18 11:40 36.7 112 26 94/59 (71) 82 BiPAP 02/13/18 11:10 98 20 88 BiPAP/CPAP 6.0 02/13/18 11:10 98 87 02/13/18 10:23 108 90 02/13/18 08:20 Oxymask 10.0 02/13/18 07:43 36.5 111 22 103/65 (78) 94 Nasal Cannula 10.0 02/13/18 07:11 111 20 94 Diffusion Mask 10.0 02/13/18 04:22 36.8 122 36 100/63 (75) 96 Oxymask 10.0 02/13/18 01:35 135 77 Nasal Cannula 4.0 02/12/18 23:39 36.4 131 38 128/65 (86) 94 Nasal Cannula 4.0 02/12/18 22:15 137 22 95/54 (68) 93 Nasal Cannula 4.0 02/12/18 20:00 Nasal Cannula 4.0 02/12/18 19:14 36.4 128 18 115/68 (84) 95 Nasal Cannula 4.0 02/12/18 19:00 110 20 93 Nasal Cannula 4.0 02/12/18 16:14 36.5 110 20 128/75 (92) 93 Nasal Cannula 4.0 General Appearance: mild distress Head: normocephalic, atraumatic Eyes: PERRLA Neck: normal range of motion Respiratory: accessory muscle use, rhonchi (Bilaterally) Cardiovasular: irregular rate (Tachycardia) Abdomen: non tender Pulses: radial (R) (2+), radial (L) (2+) Neuro: alert, oriented x 3 Laboratory Results Last 24 Hours Test 02/13/18 02:22 02/13/18 05:47 02/13/18 09:42 02/13/18 12:08 White Blood Count 14.52 K/uL 14.69 K/uL Red Blood Count 4.68 M/uL 4.64 M/uL Hemoglobin 11.6 g/dL 11.3 g/dL Hematocrit 39.6 % 39.5 % Mean Corpuscular Volume 84.6 fL 85.1 fL Mean Corpuscular Hemoglobin 24.8 pg 24.4 pg Mean Corpuscular Hemoglobin Concent 29.3 g/dl 28.6 g/dl RDW Standard Deviation 49.4 fL 49.2 fL RDW Coefficient of Variation 16.0 % 15.9 % Platelet Count 338 K/uL 341 K/uL Mean Platelet Volume 9.5 fL 9.2 fL Sodium Level 139 mmol/L 140 mmol/L Potassium Level 5.1 mmol/L 5.5 mmol/L Chloride Level 104 mmol/L 104 mmol/L Carbon Dioxide Level 31 mmol/L 33 mmol/L Anion Gap 4.0 mmol/L 3.0 mmol/L Blood Urea Nitrogen 21 mg/dl 23 mg/dl Creatinine 1.18 mg/dl 1.17 mg/dl Est Creatinine Clear Calc Drug Dose 57.1 ml/min 57.6 ml/min Estimated GFR () 72.5 73.3 Estimated GFR (Non- 62.6 63.2 BUN/Creatinine Ratio 18.0 19.2 Random Glucose 134 mg/dl 109 mg/dl Calcium Level 10.0 mg/dl 10.3 mg/dl Phosphorus Level 4.1 mg/dl Magnesium Level 2.2 mg/dl 2.4 mg/dl Thyroid Stimulating Hormone (TSH) 0.773 uIu/ml Neutrophils (%) (Auto) 90.4 % Lymphocytes (%) (Auto) 4.0 % Monocytes (%) (Auto) 5.0 % Eosinophils (%) (Auto) 0.2 % Basophils (%) (Auto) 0.1 % Neutrophils # (Auto) 13.29 K/uL Lymphocytes # (Auto) 0.59 K/uL Monocytes # (Auto) 0.73 K/uL Eosinophils # (Auto) 0.03 K/uL Basophils # (Auto) 0.01 K/uL Immature Granulocyte % (Auto) 0.3 % Immature Granulocyte # (Auto) 0.04 K/uL Prothrombin Time 15.9 SECONDS Prothromb Time International Ratio 1.5 Total Bilirubin 0.2 mg/dl Direct Bilirubin < 0.1 mg/dl Aspartate Amino Transf (AST/SGOT) 25 U/L Alanine Aminotransferase (ALT/SGPT) 19 U/L Alkaline Phosphatase 89 U/L Total Protein 7.5 gm/dl Albumin 2.4 gm/dl Arterial Blood pH 7.20 7.29 Arterial Blood Partial Pressure CO2 83 mmHg 66 mmHg Arterial Blood Partial Pressure O2 109 mm/Hg 60 mm/Hg Arterial Blood HCO3 32 mmol/L 31 mmol/L Arterial Blood Oxygen Saturation 96.5 % 88.2 % Arterial Blood Base Excess 1.7 mEq/L 3.2 mEq/L Arterial Blood Gas Delivery 10L 35% Raad Test POS POS Diagnostic Results I have reviewed the radiology reports of the CT abdomen and pelvis, brain MRI, venous Doppler study, CTA of the chest. I have also independently reviewed the images of the CTA of the chest as well as the abdomen and pelvis. Patient has mass in the lungs, bilateral pulmonary emboli. Assessment & Plan Reason Critically Ill: 67-year-old male with acute on chronic hypoxic respiratory failure with associated hypercapnia PLAN: Neuro: Analgesia -Morphine as needed Resp: Acute on chronic hypoxic respiratory failure with hypercapnia End-stage COPD: FEV1 27% Tobacco abuse disorder -Discussed risks benefits of possible intubation for respiratory insufficiency -Patient and in agreement that patient would not desire mechanical ventilation, given high risk of permanent vent dependence -Patient desires to discontinue BiPAP secondary to being uncomfortable , will attempt high flow nasal cannula -Suspect decompensation largely secondary to underlying structural lung disease, acute exacerbation of COPD and venous thromboemboli and squamous cell carcinoma CV: CAD Tachycardia - Echocardiogram reviewed Fluids/Renal: Mild hyperkalemia -Patient receiving normal saline at 75 ML's ID: Possible ARVIN infection -Reviewed pulmonary recommendations -Procalcitonin within normal limits -Agree with holding anti-infectives at this time GI/Nutrition: N.p.o. while on BiPAP Heme: Long-term use of anticoagulation -Would continue with Lovenox -Defer long-term anticoagulation to oncology Endocrine: Steroids secondary to underlying pulmonary disease - Mild hyperglycemia Vascular access: Peripheral IVs Code Status: DO NOT INTUBATE in event of respiratory insufficiency DO NOT RESUSCITATE in event of cardiac arrest I had an extensive discussion regarding goals of care with the patient and his . Patient has a end-stage medical condition and COPD and metastatic malignant disease. Accordingly I agree with making the patient a DO NOT RESUSCITATE DO NOT INTUBATE. I have consulted palliative care. Their goal is to improve his functional status to get him home and hopefully be engaged in home hospice. I have personally spent 65 minutes of critical care time in the direct management of this patient. This is a life/limb threatening event. This includes time spent evaluating patient, direct bedside care, chart review, placing orders, interpretation of diagnostic studies, discussion with consultants, patient, and/or family members regarding treatment decisions, as well as other required patient management activities. This time is exclusive of all separately billable procedures, and teaching time and separate from and in addition to any other critical care service time.
--- NOTE | 2018-02-13 15:23 | Pharmacy Progress Note ---
Pharmacy Antibiotic Prog Note Date of Service Feb 13, 2018. Objective Height (Feet): 5 Height (Inches): 8.00 Weight (Kilograms): 70.700 Lab Results (24hrs): Test 02/13/18 02:22 02/13/18 05:47 02/13/18 09:42 02/13/18 12:08 White Blood Count 14.52 K/uL (4.8-10.8) 14.69 K/uL (4.8-10.8) Red Blood Count 4.68 M/uL (4.7-6.1) 4.64 M/uL (4.7-6.1) Hemoglobin 11.6 g/dL (14.0-18.0) 11.3 g/dL (14.0-18.0) Hematocrit 39.6 % (42-52) 39.5 % (42-52) Mean Corpuscular Volume 84.6 fL (80-100) 85.1 fL (80-100) Mean Corpuscular Hemoglobin 24.8 pg (25-34) 24.4 pg (25-34) Mean Corpuscular Hemoglobin Concent 29.3 g/dl (32-36) 28.6 g/dl (32-36) RDW Standard Deviation 49.4 fL (36.4-46.3) 49.2 fL (36.4-46.3) RDW Coefficient of Variation 16.0 % (11.5-14.5) 15.9 % (11.5-14.5) Platelet Count 338 K/uL (130-400) 341 K/uL (130-400) Mean Platelet Volume 9.5 fL (7.4-10.4) 9.2 fL (7.4-10.4) Sodium Level 139 mmol/L (136-145) 140 mmol/L (136-145) Potassium Level 5.1 mmol/L (3.5-5.1) 5.5 mmol/L (3.5-5.1) Chloride Level 104 mmol/L (98-107) 104 mmol/L (98-107) Carbon Dioxide Level 31 mmol/L (21-32) 33 mmol/L (21-32) Anion Gap 4.0 mmol/L (3-11) 3.0 mmol/L (3-11) Blood Urea Nitrogen 21 mg/dl (7-18) 23 mg/dl (7-18) Creatinine 1.18 mg/dl (0.60-1.40) 1.17 mg/dl (0.60-1.40) Est Creatinine Clear Calc Drug Dose 57.1 ml/min 57.6 ml/min Estimated GFR () 72.5 73.3 Estimated GFR (Non- 62.6 63.2 BUN/Creatinine Ratio 18.0 (10-20) 19.2 (10-20) Random Glucose 134 mg/dl (70-99) 109 mg/dl (70-99) Calcium Level 10.0 mg/dl (8.5-10.1) 10.3 mg/dl (8.5-10.1) Phosphorus Level 4.1 mg/dl (2.5-4.9) Magnesium Level 2.2 mg/dl (1.8-2.4) 2.4 mg/dl (1.8-2.4) Thyroid Stimulating Hormone (TSH) 0.773 uIu/ml (0.300-4.500) Neutrophils (%) (Auto) 90.4 % Lymphocytes (%) (Auto) 4.0 % Monocytes (%) (Auto) 5.0 % Eosinophils (%) (Auto) 0.2 % Basophils (%) (Auto) 0.1 % Neutrophils # (Auto) 13.29 K/uL (1.4-6.5) Lymphocytes # (Auto) 0.59 K/uL (1.2-3.4) Monocytes # (Auto) 0.73 K/uL (0.11-0.59) Eosinophils # (Auto) 0.03 K/uL (0-0.5) Basophils # (Auto) 0.01 K/uL (0-0.2) Immature Granulocyte % (Auto) 0.3 % Immature Granulocyte # (Auto) 0.04 K/uL (0.00-0.02) Prothrombin Time 15.9 SECONDS (9.0-12.0) Prothromb Time International Ratio 1.5 (0.9-1.1) Total Bilirubin 0.2 mg/dl (0.2-1) Direct Bilirubin < 0.1 mg/dl (0-0.2) Aspartate Amino Transf (AST/SGOT) 25 U/L (15-37) Alanine Aminotransferase (ALT/SGPT) 19 U/L (12-78) Alkaline Phosphatase 89 U/L (45-117) Total Protein 7.5 gm/dl (6.4-8.2) Albumin 2.4 gm/dl (3.4-5.0) Arterial Blood pH 7.20 (7.35-7.45) 7.29 (7.35-7.45) Arterial Blood Partial Pressure CO2 83 mmHg (35-46) 66 mmHg (35-46) Arterial Blood Partial Pressure O2 109 mm/Hg (80-95) 60 mm/Hg (80-95) Arterial Blood HCO3 32 mmol/L (19-24) 31 mmol/L (19-24) Arterial Blood Oxygen Saturation 96.5 % (90-95) 88.2 % (90-95) Arterial Blood Base Excess 1.7 mEq/L (-9-1.8) 3.2 mEq/L (-9-1.8) Arterial Blood Gas Delivery 10L 35% Raad Test POS (POS) POS (POS) Assessment & Plan Assessment * 67 yo M with acute on chronic respiratory failure 2nd COPD exacerbation, PE, and possible HAP. Hx lung CA (recent diagnosis). * WBC persistently elevated. Afebrile. Procalcitonin less than 0.5 ng/mL ( drawn 02/11). * Antibiotics * Zosyn and vancomycin originally started 02/11. Both discontinued 02/12 and transitioned to po Augmentin. * Zosyn and vancomycin resumed 02/13 2nd severity of illness * Cultures * 02/11 nasal swab negative. Repeat 02/13 pending. * 02/11 sputum culture with heavy normal emilia * Renal * SCr trended up slightly today (0.99 to 1.17 mg/dL) - unclear clinical significance. Will monitor. * Unknown SCr baseline (no previous admissions to [facility]), but no CKD noted in H& P Vancomycin * Goal vancomycin trough 15-20 mcg/mL * Re-loaded today with 1750 mg (25 mg/kg) as it had been ~33 hours since last vancomycin dose and estimated t1/2 is 13 hours * Will resume previously ordered maintenance dose * Will obtain early trough as patient will have received vancomycin (albeit interrupted dosing) since 02/11 and do not want to defer level longer. Of note, this will not be at steady state. Plan * Vancomycin 1000 mg IV q12h * Trough 8/3 @ 1130 Pharmacy will continue to follow and will adjust dose/frequency as necessary. Thank you
[2018-02-13] MEDS ORDERED: PIPERACILL/TAZOBAC IV 3.375 GM in D5W 100ML IV SCH (16:00)
[2018-02-13] MEDS ORDERED: LACTATED RINGER'S 1000ML 1,000 ML IV SCH (16:15)
[2018-02-13] MEDS: METHYLPREDNISOLONE IV 20 MG in SYRINGE 0 ML IV SCH ×2 (16:25→21:09)
[2018-02-13] MEDS ORDERED: VANCOMYCIN IV 1,000 MG in SODIUM CHLORIDE 0.9% 250ML 250 ML IV SCH (21:00)
[2018-02-14] VITALS (20 sets, daily range): BP systolic 98–150; BP diastolic 57–76; PULSE 78–116; TEMP 36.5–36.8; O2SAT 88–98
[2018-02-14] MEDS ORDERED: VANCOMYCIN IV 1,000 MG in SODIUM CHLORIDE 0.9% 250ML 250 ML IV SCH ×2
[2018-02-14] MEDS: LEVALBUTEROL 1.25MG/0.5ML NEB INH SCH ×4 (02:39→20:00)
[2018-02-14] MEDS: IPRATROPIUM BROMIDE NEB SOLN 0.02% 2.5 ML VIAL INH SCH ×4 (02:39→20:00)
[2018-02-14 04:29] LABS: BASO % 0.1 %; BASO ABS # 0.01 K/uL (0-0.2); EOS % 0.2 %; EOS ABS # 0.02 K/uL (0-0.5); HEMATOCRIT 33.4 % (42-52); HEMOGLOBIN 9.2 g/dL (14.0-18.0); IG# 0.03 K/uL (0.00-0.02); LYMPH % 6.5 %; MEAN CELL VOLUME 86.1 fL (80-100); MEAN CORPUSCULAR HEMOGLOBIN 23.7 pg (25-34); MEAN CORPUSCULAR HGB CONC 27.5 g/dl (32-36); MEAN PLATELET VOLUME 9.2 fL (7.4-10.4); MONO % 6.1 %; MONO ABS # 0.66 K/uL (0.11-0.59); NEUT % 86.8 %; NEUT ABS # 9.43 K/uL (1.4-6.5); PLATELET COUNT 267 K/uL (130-400); RED CELL DISTRIBUTION WIDTH CV 15.9 % (11.5-14.5); RED CELL DISTRIBUTION WIDTH SD 50.4 fL (36.4-46.3); WHITE BLOOD COUNT 10.85 K/uL (4.8-10.8)
[2018-02-14 04:41] LABS: CALCIUM 9.7 mg/dl (8.5-10.1); CREATININE 0.95 mg/dl (0.60-1.40); POTASSIUM 4.7 mmol/L (3.5-5.1)
[2018-02-14] MEDS: SODIUM CHLORIDE 0.9% 1000ML 1,000 ML IV SCH (06:37)
[2018-02-14] MEDS ORDERED: PIPERACILL/TAZOBAC CONSULT ACTIVE PRN (08:15)
[2018-02-14] MEDS: METHYLPREDNISOLONE IV 20 MG in SYRINGE 0 ML IV SCH ×3 (08:18→20:54)
[2018-02-14] MEDS: ENOXAPARIN 80 MG/0.8 ML SYR SQ SCH ×2 (08:18→20:55)
[2018-02-14] MEDS ORDERED: PIPERACILL/TAZOBAC IV 3.375 GM in D5W 100 ML IV ONE (09:00)
--- NOTE | 2018-02-14 09:17 | Critical Care Progress Note ---
Critical Care Progress Note Date of Service Feb 14, 2018. ICU Day ICU Day Number: [address] Marley Subjective No overnight events, transition to nasal cannula high flow, feels much better. Saturating greater than 94% while able to eat breakfast. No complaints of nausea. Objective General: Alert. nontoxic. Skin: Warm, dry, Head: Atraumatic Ears, nose, mouth and throat: airway patent, high flow nasal cannula present Cardiovascular: Normal peripheral perfusion, tachycardia Respiratory: no respiratory distress, able to speak in full sentences, no desaturation while eating breakfast on high flow nasal cannula Gastrointestinal: Non distended Musculoskeletal: No deformity Assessment & Plan Reason Critically Ill: 67-year-old male with acute on chronic hypoxic respiratory failure with associated hypercapnia PLAN: Neuro: Analgesia -Morphine as needed Resp: Acute on chronic hypoxic respiratory failure with hypercapnia End-stage COPD: FEV1 27% Tobacco abuse disorder -Patient and in agreement that patient would not desire mechanical ventilation, given high risk of permanent vent dependence -Patient saturating well on high flow nasal cannula, attempt to wean to simple nasal cannula -Suspect decompensation largely secondary to underlying structural lung disease, acute exacerbation of COPD and venous thromboemboli and squamous cell carcinoma CV: CAD Tachycardia -Patient may benefit from rate control if that improves his symptomatology -Beta-blockade may inhibit responsiveness to bronchodilators, however his COPD had minimal response at baseline -Given goals of care and significant comorbidities would treat the heart rate based off the patient's symptomatology and functional goals Fluids/Renal: Mild hyperkalemia: Resolved -Discontinuing additional fluids ID: Possible ARVIN infection -Reviewed pulmonary recommendations -Procalcitonin within normal limits -Agree with holding anti-infectives at this time GI/Nutrition: Regular diet Heme: Long-term use of anticoagulation -Would continue with Lovenox -Defer long-term anticoagulation to oncology Endocrine: Steroids secondary to underlying pulmonary disease -Consider wean steroids possibly tomorrow - Mild hyperglycemia Vascular access: Peripheral IVs Code Status: DO NOT INTUBATE in event of respiratory insufficiency DO NOT RESUSCITATE in event of cardiac arrest Prognosis: Poor I had an extensive discussion regarding goals of care with the patient and his . Patient has a end-stage medical condition and COPD and metastatic malignant disease. Accordingly I agree with making the patient a DO NOT RESUSCITATE DO NOT INTUBATE. I have consulted palliative care. Their goal is to improve his functional status to get him home and hopefully be engaged in home hospice. Discussed with hospitalist service stable for transfer to medical unit Data Medications: Current Inpatient Medications Medications (Trade) Dose Ordered Sig/Danae Route Start Time Stop Time Status Last Admin Dose Admin Acetaminophen (Tylenol Tab) 650 mg Q4H PRN PO 02/11/18 16:45 03/13/18 16:44 Al Hydrox/Mg Hydrox/Simethicone (Maalox Max Susp) 15 ml Q4H PRN PO 02/11/18 16:45 03/13/18 16:44 Magnesium Hydroxide (Milk Of Magnesia Susp) 30 ml Q12H PRN PO 02/11/18 16:45 03/13/18 16:44 Zolpidem Tartrate (Ambien Tab) 5 mg HSZ PRN PO 02/11/18 16:45 03/13/18 16:44 Ondansetron HCl (Zofran Inj) 4 mg Q6H PRN IV 02/11/18 16:45 03/13/18 16:44 02/12/18 20:37 4 MG Morphine Sulfate (MoRPHine SULFATE INJ) 2 mg Q30M PRN IV 02/11/18 16:45 02/25/18 16:44 Polyethylene (Miralax Powder Packet) 17 gm DAILY PRN PO 02/11/18 17:00 03/13/18 16:59 Enoxaparin Sodium (Lovenox Inj) 70 mg Q12 SQ 02/13/18 09:00 03/15/18 08:59 02/14/18 08:18 70 MG Sodium Chloride 1,000 ml @ 75 mls/hr [id number] IV 02/13/18 09:30 03/15/18 09:29 02/14/18 06:37 75 MLS/HR Levalbuterol (Xopenex 0.63 Mg/ 3 Ml Neb) 0.63 mg Q2H PRN INH 02/13/18 10:00 03/15/18 09:59 02/13/18 11:32 0.63 MG Ipratropium [place] (Atrovent 0.02% 0.5MG/2.5ML Neb) 0.5 mg Q6R INH 02/13/18 15:00 03/15/18 14:59 02/14/18 07:05 0.5 MG Levalbuterol (Xopenex 1.25MG/ 0.5ML Neb) 1.25 mg Q6R INH 02/13/18 15:00 03/15/18 14:59 02/14/18 07:06 1.25 MG Methylprednisolone Sodium Succinate 20 mg/Syringe 0.32 ml @ 1.5 mls/min TID IV 02/13/18 14:00 03/15/18 13:59 02/14/18 08:18 1.5 MLS/MIN Miscellaneous Information (Consult) 1 ea UD PRN N/A 02/14/18 08:15 03/16/18 08:14 Piperacillin Sod/ Tazobactam Sod 3.375 gm/Dextrose 115 ml @ 230 mls/hr NOW ONCE IV 02/14/18 09:00 02/14/18 09:29 Piperacillin Sod/ Tazobactam Sod 3.375 gm/Dextrose 115 ml @ 28.75 mls/ hr Q8H IV 02/14/18 14:00 02/21/18 13:59 Vital Signs: Date Time Temp Pulse Resp B/P (MAP) Pulse Ox O2 Delivery O2 Flow Rate FiO2 02/14/18 07:06 88 24 93 Nasal Cannula 40.0 50 02/14/18 06:01 98 24 111/76 (88) 96 High Flow Oxygen 40.0 50 02/14/18 05:02 96 18 114/57 (76) 95 High Flow Oxygen 40.0 50 02/14/18 04:33 94 22 112/67 (82) 93 High Flow Oxygen 40.0 50 02/14/18 04:01 36.8 101 20 114/63 (80) 96 High Flow Oxygen 40.0 50 02/14/18 03:01 85 21 111/61 (78) 94 High Flow Oxygen 40.0 50 02/14/18 02:39 99 24 96 Nasal Cannula 40.0 50 02/14/18 02:01 89 22 98/61 (73) 97 High Flow Oxygen 40.0 50 02/14/18 01:31 108 20 119/71 (87) 96 High Flow Oxygen 40.0 50 02/14/18 01:01 102 24 100/61 (74) 95 High Flow Oxygen 40.0 50 02/14/18 00:01 36.6 116 22 132/75 (94) 93 High Flow Oxygen 40.0 50 02/13/18 23:01 90 24 104/53 (70) 94 High Flow Oxygen 40.0 50 02/13/18 22:01 109 27 119/74 (89) 96 High Flow Oxygen 40.0 50 02/13/18 21:02 112 24 121/68 (85) 96 High Flow Oxygen 40.0 50 02/13/18 20:50 112 23 138/68 (91) 94 High Flow Oxygen 40.0 50 02/13/18 20:28 109 16 107/42 (63) 94 High Flow Oxygen 40.0 50 02/13/18 20:02 36.8 92 24 114/85 (95) 94 High Flow Oxygen 40.0 50 02/13/18 20:00 95 High Flow Oxygen 40.0 50 02/13/18 19:25 97 26 95 Nasal Cannula 40.0 50 02/13/18 19:02 101 21 144/63 (90) 95 High Flow Oxygen 40.0 50 02/13/18 18:08 103 24 139/71 (93) 96 High Flow Oxygen 40.0 50 02/13/18 16:00 High Flow Oxygen 40.0 50 02/13/18 16:00 36.7 107 24 116/69 (85) 98 High Flow Oxygen 40.0 50 02/13/18 14:19 96 25 92 BiPAP/CPAP 8.0 02/13/18 14:09 111 92 02/13/18 11:40 36.7 112 26 94/59 (71) 82 BiPAP 02/13/18 11:10 98 20 88 BiPAP/CPAP 6.0 02/13/18 11:10 98 87 02/13/18 10:23 108 90 Laboratory Results: Last 24 Hours Test 02/13/18 09:42 02/13/18 12:08 02/13/18 17:12 02/14/18 04:11 Arterial Blood pH 7.20 7.29 Arterial Blood Partial Pressure CO2 83 mmHg 66 mmHg Arterial Blood Partial Pressure O2 109 mm/Hg 60 mm/Hg Arterial Blood HCO3 32 mmol/L 31 mmol/L Arterial Blood Oxygen Saturation 96.5 % 88.2 % Arterial Blood Base Excess 1.7 mEq/L 3.2 mEq/L Arterial Blood Gas Delivery 10L 35% Raad Test POS POS Bedside Glucose 109 mg/dl White Blood Count 10.85 K/uL Red Blood Count 3.88 M/uL Hemoglobin 9.2 g/dL Hematocrit 33.4 % Mean Corpuscular Volume 86.1 fL Mean Corpuscular Hemoglobin 23.7 pg Mean Corpuscular Hemoglobin Concent 27.5 g/dl Platelet Count 267 K/uL Mean Platelet Volume 9.2 fL Neutrophils (%) (Auto) 86.8 % Lymphocytes (%) (Auto) 6.5 % Monocytes (%) (Auto) 6.1 % Eosinophils (%) (Auto) 0.2 % Basophils (%) (Auto) 0.1 % Neutrophils # (Auto) 9.43 K/uL Lymphocytes # (Auto) 0.70 K/uL Monocytes # (Auto) 0.66 K/uL Eosinophils # (Auto) 0.02 K/uL Basophils # (Auto) 0.01 K/uL RDW Standard Deviation 50.4 fL RDW Coefficient of Variation 15.9 % Immature Granulocyte % (Auto) 0.3 % Immature Granulocyte # (Auto) 0.03 K/uL Sodium Level 141 mmol/L Potassium Level 4.7 mmol/L Chloride Level 107 mmol/L Carbon Dioxide Level 34 mmol/L Anion Gap 0.0 mmol/L Blood Urea Nitrogen 19 mg/dl Creatinine 0.95 mg/dl Est Creatinine Clear Calc Drug Dose 71.0 ml/min Estimated GFR () 94.3 Estimated GFR (Non- 81.3 BUN/Creatinine Ratio 19.9 Random Glucose 80 mg/dl Calcium Level 9.7 mg/dl Magnesium Level 2.3 mg/dl Test 02/14/18 06:31 Bedside Glucose 96 mg/dl
[2018-02-14] MEDS ORDERED: VANCOMYCIN TROUGH ONE (11:30)
--- NOTE | 2018-02-14 13:26 | Palliative Care Consultation ---
Consultation Date of Consultation: Feb 14, 2018. Requesting Physician: Dr. Marley Attending Physician: Dr. Gibbons Reason for Consultation: Goals of care History of Present Illness This 67 year old male patient with PMH squamous cell lung ca, sever COPD, and others listed below, presented to the hospital three days ago with hypoxia and SOB. Patient is a current every day smoker, was diagnosed with squamous cell just recently. Is oxygen-dependent at home. CTA was completed which shows bilateral PE along with large, invasive right lung mass as previously noted. Patient also recently diagnosed with ARVIN at [facility]-- treatment has been effecting his INR levels. Patient's FEV1 is 27% per Dr. Magallon's note. Patient was transferred to ICU yesterday for respiratory failure. He was placed on Bipap and is now on high-flow nasal cannula. Recruiting Coordinator spoke with patient and his yesterday and patient stated he did not want to be intubated. Patient did somewhat improve overnight and is still on high-flow nasal cannula. He was transferred to med/surg. Palliative care is consulted to establish goals of care. I met with patient at bedside and spoke at length with his , Favian, in the room yesterday and on phone today. Patient today is looking a little less SOB than last evening. He is oriented x4, now on nasal cannula this afternoon. Patient states that he really wants to go home with his . He feels that he has little hope of recovery, but is okay with continuing treatment for now to see if he can get over the COPD exacerbation in hopes that he might be able to have some sort of treatment for the cancer. Patient's , Favian, wants to be supportive to patient. If he does end up wanting to go home with hospice she is okay with that. However, she too wants to continue current medical management to see if we can get patient better optimized to see if there are any other options for him. Continue current medical management for now. Past Medical/Surgical History Medical History: 1) COPD - 3L 02-dependent 2) CAD 3) R lung squamous cell CA - necrotic R lung mass with invasion into spina and post chest wall 4) PVD 5) ARVIN infection 6) History of PEs dating back to Surgical: 1) Femoral-popliteal bypass 2) Amputation of toe Social History Smoking Status: Former Smoker History of Alcohol Use: No Marital Status: Review of Systems Constitutional: + weakness ENT: No trouble swallowing Respiratory: + cough, + shortness of breath, + dyspnea on exertion, No sputum, No wheezing Cardiac: No chest pain, No edema Abdomen: No pain, No nausea, No vomiting Male : No problem reported Psychiatric: No depression symptoms, No anxiety Allergies Coded Allergies: No Known Allergies (Unverified , 02/11/18) Medications Current Inpatient Medications Medications (Trade) Dose Ordered Sig/Danae Route Start Time Stop Time Status Last Admin Dose Admin Acetaminophen (Tylenol Tab) 650 mg Q4H PRN PO 02/11/18 16:45 03/13/18 16:44 Al Hydrox/Mg Hydrox/Simethicone (Maalox Max Susp) 15 ml Q4H PRN PO 02/11/18 16:45 03/13/18 16:44 Magnesium Hydroxide (Milk Of Magnesia Susp) 30 ml Q12H PRN PO 02/11/18 16:45 03/13/18 16:44 Zolpidem Tartrate (Ambien Tab) 5 mg HSZ PRN PO 02/11/18 16:45 03/13/18 16:44 Ondansetron HCl (Zofran Inj) 4 mg Q6H PRN IV 02/11/18 16:45 03/13/18 16:44 02/12/18 20:37 4 MG Morphine Sulfate (MoRPHine SULFATE INJ) 2 mg Q30M PRN IV 02/11/18 16:45 02/25/18 16:44 Polyethylene (Miralax Powder Packet) 17 gm DAILY PRN PO 02/11/18 17:00 03/13/18 16:59 Enoxaparin Sodium (Lovenox Inj) 70 mg Q12 SQ 02/13/18 09:00 03/15/18 08:59 02/14/18 08:18 70 MG Levalbuterol (Xopenex 0.63 Mg/ 3 Ml Neb) 0.63 mg Q2H PRN INH 02/13/18 10:00 03/15/18 09:59 02/13/18 11:32 0.63 MG Ipratropium [place] (Atrovent 0.02% 0.5MG/2.5ML Neb) 0.5 mg Q6R INH 02/13/18 15:00 9/1/18 14:59 02/14/18 07:05 0.5 MG Levalbuterol (Xopenex 1.25MG/ 0.5ML Neb) 1.25 mg Q6R INH 02/13/18 15:00 03/15/18 14:59 02/14/18 07:06 1.25 MG Methylprednisolone Sodium Succinate 20 mg/Syringe 0.32 ml @ 1.5 mls/min TID IV 02/13/18 14:00 03/15/18 13:59 02/14/18 08:18 1.5 MLS/MIN Miscellaneous Information (Consult) 1 ea UD PRN N/A 02/14/18 08:15 03/16/18 08:14 Piperacillin Sod/ Tazobactam Sod 3.375 gm/Dextrose 115 ml @ 28.75 mls/ hr Q8H IV 02/14/18 14:00 02/21/18 13:59 Physical Exam Date Time Temp Pulse Resp B/P (MAP) Pulse Ox O2 Delivery O2 Flow Rate FiO2 02/14/18 10:18 36.6 88 22 107/62 (77) 90 Nasal Cannula 7.0 02/14/18 10:00 24 95 Nasal Cannula 7.0 02/14/18 08:00 36.6 99 22 110/66 (81) 94 High Flow Oxygen 40.0 50 02/14/18 08:00 92 High Flow Oxygen 40.0 50 02/14/18 07:06 88 24 93 Nasal Cannula 40.0 50 02/14/18 06:01 98 24 111/76 (88) 96 High Flow Oxygen 40.0 50 02/14/18 05:02 96 18 114/57 (76) 95 High Flow Oxygen 40.0 50 02/14/18 04:33 94 22 112/67 (82) 93 High Flow Oxygen 40.0 50 02/14/18 04:01 36.8 101 20 114/63 (80) 96 High Flow Oxygen 40.0 50 02/14/18 03:01 85 21 111/61 (78) 94 High Flow Oxygen 40.0 50 02/14/18 02:39 99 24 96 Nasal Cannula 40.0 50 02/14/18 02:01 89 22 98/61 (73) 97 High Flow Oxygen 40.0 50 02/14/18 01:31 108 20 119/71 (87) 96 High Flow Oxygen 40.0 50 02/14/18 01:01 102 24 100/61 (74) 95 High Flow Oxygen 40.0 50 02/14/18 00:01 36.6 116 22 132/75 (94) 93 High Flow Oxygen 40.0 50 02/13/18 23:01 90 24 104/53 (70) 94 High Flow Oxygen 40.0 50 02/13/18 22:01 109 27 119/74 (89) 96 High Flow Oxygen 40.0 50 02/13/18 21:02 112 24 121/68 (85) 96 High Flow Oxygen 40.0 50 02/13/18 20:50 112 23 138/68 (91) 94 High Flow Oxygen 40.0 50 02/13/18 20:28 109 16 107/42 (63) 94 High Flow Oxygen 40.0 50 02/13/18 20:02 36.8 92 24 114/85 (95) 94 High Flow Oxygen 40.0 50 02/13/18 20:00 95 High Flow Oxygen 40.0 50 02/13/18 19:25 97 26 95 Nasal Cannula 40.0 50 02/13/18 19:02 101 21 144/63 (90) 95 High Flow Oxygen 40.0 50 02/13/18 18:08 103 24 139/71 (93) 96 High Flow Oxygen 40.0 50 02/13/18 16:00 High Flow Oxygen 40.0 50 02/13/18 16:00 36.7 107 24 116/69 (85) 98 High Flow Oxygen 40.0 50 02/13/18 14:19 96 25 92 BiPAP/CPAP 8.0 02/13/18 14:09 111 92 General Appearance: no apparent distress ENT: hearing grossly normal Neck: supple, no JVD Respiratory: no respiratory distress, + decreased breath sounds, + rhonchi, + wheezing (expiratory), + pertinent finding (does appear mildly short of breath) Cardiovascular: regular rate, rhythm, no edema, + normal peripheral pulses Abdomen: normal bowel sounds, non tender, soft Neurologic/Psychiatric: alert, normal mood/affect, oriented x 3 Skin: normal color Laboratory Results Last 24 Hours Test 02/13/18 17:12 02/14/18 04:11 02/14/18 06:31 Bedside Glucose 109 mg/dl 96 mg/dl White Blood Count 10.85 K/uL Red Blood Count 3.88 M/uL Hemoglobin 9.2 g/dL Hematocrit 33.4 % Mean Corpuscular Volume 86.1 fL Mean Corpuscular Hemoglobin 23.7 pg Mean Corpuscular Hemoglobin Concent 27.5 g/dl Platelet Count 267 K/uL Mean Platelet Volume 9.2 fL Neutrophils (%) (Auto) 86.8 % Lymphocytes (%) (Auto) 6.5 % Monocytes (%) (Auto) 6.1 % Eosinophils (%) (Auto) 0.2 % Basophils (%) (Auto) 0.1 % Neutrophils # (Auto) 9.43 K/uL Lymphocytes # (Auto) 0.70 K/uL Monocytes # (Auto) 0.66 K/uL Eosinophils # (Auto) 0.02 K/uL Basophils # (Auto) 0.01 K/uL RDW Standard Deviation 50.4 fL RDW Coefficient of Variation 15.9 % Immature Granulocyte % (Auto) 0.3 % Immature Granulocyte # (Auto) 0.03 K/uL Sodium Level 141 mmol/L Potassium Level 4.7 mmol/L Chloride Level 107 mmol/L Carbon Dioxide Level 34 mmol/L Anion Gap 0.0 mmol/L Blood Urea Nitrogen 19 mg/dl Creatinine 0.95 mg/dl Est Creatinine Clear Calc Drug Dose 71.0 ml/min Estimated GFR () 94.3 Estimated GFR (Non- 81.3 BUN/Creatinine Ratio 19.9 Random Glucose 80 mg/dl Calcium Level 9.7 mg/dl Magnesium Level 2.3 mg/dl Assessment & Plan Problem list: SOB/LEAL Respiratory failure with hypoxia with hx severe COPD Squamous cell lung cancer Bilateral PE ARVIN infection Goals of care Palliative care recs: -Patient and confirmed he is DNR/DNI. -As discussed with patient and , Favian, continue current medical management for respiratory failure/COPD exacerbation. -Patient feels that he has little hope of recovery, but he is okay with continuing current treatment to try and get better optimized. He originally wanted to try and receive some sort of treatment for the squamous cell lung cancer, but now he is unsure. -Patient's goal is to get home with his , but uncertain at this time whether or not it will be for comfort/hospice vs. continuing care and trying to get treatment for cancer. Will depend majorly on this hospitalization. Thank you kindly for this consult. I will follow as needed. Total time spent 70 minutes with >50% of time spent at bedside with patient and counseling/discussing goals of care.
--- NOTE | 2018-02-14 13:53 | Pulmonology Progress Note ---
Pulmonary Progress Note Date of Service Feb 14, 2018. Attending Dr. Magallon Subjective Patient notes he is dramatically improved over the last 24 hours in his overall respiratory status. He still notes intermittent dyspnea at rest but denies: Fever, chills, productive cough, hemoptysis Objective Patient currently lying in bed notably fatigued and using accessory muscles during our conversation but otherwise no signs of acute respiratory insufficiency/failure PmHx: Squamous cell carcinoma of the lung, Very severe COPD (FEV1: 27%) with significant reversible component, CAD (coronary artery disease), Chronic anticoagulation, CAD/[place], psoriasis, PVD, tobacco use disorder PsHx: Colonoscopy, S/P femoral-popliteal bypass surgery, to amputation, right inguinal hernia repair, transthoracic needle aspiration 01/20/2018, bronchoscopy /EBUS Vital signs: Stable on 7 liters nasal cannula Respiratory: Increasing overall air movement with expiratory wheezing Cardiac: S1-S2 tachycardic irregular rhythm Abdomen: Positive bowel sounds but mildly distended, no tenderness to deep palpation no rebound appreciated Current inpatient own hospital workup: WBC: 11k INR: 1.5 (02/13/18) Procalcitonin: 0.25 AB.20/83/109/32 on 10L AB.29/66/60/31 on BiPaP 15/5 FiO2 35% Bilateral lower extremity DVT study: No sonographic evidence of DVT CTA: Supple small 3rd order emboli involving the right and to a lesser extent left lung base, large invasive right lower lobe mass/cavitating, as well as thoracic spinal, additional scattered nodular densities of the ride hemithoracic cavity consistent with metastatic foci,, developing upper abdominal retro crucial adenopathy In-hospital Pulmonary Medications: 1. Methylprednisolone 20 mg IV t.i.d. 2. Xopenex/Atrovent nebulizer 3. Prednisone 40 mg 4. Zosyn IV 5. Lovenox 70 mg b.i.d. Assessment & Plan 67-year-old gentleman with newly diagnosed squamous cell carcinoma of the lung now with progressive respiratory insufficiency: 1. Respiratory Insufficiency: Patient currently doing well on 7 liters nasal cannula and is overall had dramatic improvement in his respiratory status. Will continue to work with the floor team to push for SaO2 between 88 and 92 % as elevated oxygen levels in patients with severe COPD can cause increasing V/Q mismatch and hypercapnic respiratory insufficiency. At this time the etiology of yesterday's hypercapnic respiratory event/failure is unknown but once again it has dramatically improved not requiring BiPAP/mechanical ventilatory support. 2. Pulmonary Emboli: Recent CT angio of the chest does show multiple subsegmental emboli in the bilateral lower lobes. These could be tumor emboli verses clots/thrombotic in nature. Patient is currently on Lovenox. 3. Leukocytosis: Patient's leukocytosis is improving as well as clinical signs and symptoms. Suggest we continue current antibiotics. 4. Squamous cell carcinoma: Patient has at least a IIIa squamous cell carcinoma and is currently pending oncologic evaluation. Patient is interested in hearing his options as far as his advanced lung CA. 5. Code status: Patient is currently a DNR/DNI. Data Medications: Current Inpatient Medications Medications (Trade) Dose Ordered Sig/Danae Route Start Time Stop Time Status Last Admin Dose Admin Acetaminophen (Tylenol Tab) 650 mg Q4H PRN PO 02/11/18 16:45 03/13/18 16:44 Al Hydrox/Mg Hydrox/Simethicone (Maalox Max Susp) 15 ml Q4H PRN PO 02/11/18 16:45 03/13/18 16:44 Magnesium Hydroxide (Milk Of Magnesia Susp) 30 ml Q12H PRN PO 02/11/18 16:45 03/13/18 16:44 Zolpidem Tartrate (Ambien Tab) 5 mg HSZ PRN PO 02/11/18 16:45 03/13/18 16:44 Ondansetron HCl (Zofran Inj) 4 mg Q6H PRN IV 02/11/18 16:45 03/13/18 16:44 02/12/18 20:37 4 MG Morphine Sulfate (MoRPHine SULFATE INJ) 2 mg Q30M PRN IV 02/11/18 16:45 02/25/18 16:44 Polyethylene (Miralax Powder Packet) 17 gm DAILY PRN PO 02/11/18 17:00 03/13/18 16:59 Enoxaparin Sodium (Lovenox Inj) 70 mg Q12 SQ 02/13/18 09:00 03/15/18 08:59 02/14/18 08:18 70 MG Levalbuterol (Xopenex 0.63 Mg/ 3 Ml Neb) 0.63 mg Q2H PRN INH 02/13/18 10:00 9/1/18 09:59 02/13/18 11:32 0.63 MG Ipratropium [place] (Atrovent 0.02% 0.5MG/2.5ML Neb) 0.5 mg Q6R INH 02/13/18 15:00 03/15/18 14:59 02/14/18 07:05 0.5 MG Levalbuterol (Xopenex 1.25MG/ 0.5ML Neb) 1.25 mg Q6R INH 02/13/18 15:00 03/15/18 14:59 02/14/18 07:06 1.25 MG Methylprednisolone Sodium Succinate 20 mg/Syringe 0.32 ml @ 1.5 mls/min TID IV 02/13/18 14:00 03/15/18 13:59 02/14/18 08:18 1.5 MLS/MIN Miscellaneous Information (Consult) 1 ea UD PRN N/A 02/14/18 08:15 03/16/18 08:14 Piperacillin Sod/ Tazobactam Sod 3.375 gm/Dextrose 115 ml @ 28.75 mls/ hr Q8H IV 02/14/18 14:00 02/21/18 13:59 Vital Signs: Date Time Temp Pulse Resp B/P (MAP) Pulse Ox O2 Delivery O2 Flow Rate FiO2 02/14/18 10:18 36.6 88 22 107/62 (77) 90 Nasal Cannula 7.0 02/14/18 10:00 24 95 Nasal Cannula 7.0 02/14/18 08:00 36.6 99 22 110/66 (81) 94 High Flow Oxygen 40.0 50 02/14/18 08:00 92 High Flow Oxygen 40.0 50 02/14/18 07:06 88 24 93 Nasal Cannula 40.0 50 02/14/18 06:01 98 24 111/76 (88) 96 High Flow Oxygen 40.0 50 02/14/18 05:02 96 18 114/57 (76) 95 High Flow Oxygen 40.0 50 02/14/18 04:33 94 22 112/67 (82) 93 High Flow Oxygen 40.0 50 02/14/18 04:01 36.8 101 20 114/63 (80) 96 High Flow Oxygen 40.0 50 8/3/18 03:01 85 21 111/61 (78) 94 High Flow Oxygen 40.0 50 8/18 02:39 99 24 96 Nasal Cannula 40.0 50 8/18 02:01 89 22 98/61 (73) 97 High Flow Oxygen 40.0 50 8/18 01:31 108 20 119/71 (87) 96 High Flow Oxygen 40.0 50 8/18 01:01 102 24 100/61 (74) 95 High Flow Oxygen 40.0 50 818 00:01 36.6 116 22 132/75 (94) 93 High Flow Oxygen 40.0 50 818 23:01 90 24 104/53 (70) 94 High Flow Oxygen 40.0 50 818 22:01 109 27 119/74 (89) 96 High Flow Oxygen 40.0 50 8/18 21:02 112 24 121/68 (85) 96 High Flow Oxygen 40.0 50 8/18 20:50 112 23 138/68 (91) 94 High Flow Oxygen 40.0 50 8/18 20:28 109 16 107/42 (63) 94 High Flow Oxygen 40.0 50 18 20:02 36.8 92 24 114/85 (95) 94 High Flow Oxygen 40.0 50 8/18 20:00 95 High Flow Oxygen 40.0 50 818 19:25 97 26 95 Nasal Cannula 40.0 50 8/18 19:02 101 21 144/63 (90) 95 High Flow Oxygen 40.0 50 18 18:08 103 24 139/71 (93) 96 High Flow Oxygen 40.0 50 18 16:00 High Flow Oxygen 40.0 50 818 16:00 36.7 107 24 116/69 (85) 98 High Flow Oxygen 40.0 50 18 14:19 96 25 92 BiPAP/CPAP 8.0 02/13/18 14:09 111 92 Laboratory Results: Last 24 Hours Test 02/13/18 17:12 02/14/18 04:11 02/14/18 06:31 Bedside Glucose 109 mg/dl 96 mg/dl White Blood Count 10.85 K/uL Red Blood Count 3.88 M/uL Hemoglobin 9.2 g/dL Hematocrit 33.4 % Mean Corpuscular Volume 86.1 fL Mean Corpuscular Hemoglobin 23.7 pg Mean Corpuscular Hemoglobin Concent 27.5 g/dl Platelet Count 267 K/uL Mean Platelet Volume 9.2 fL Neutrophils (%) (Auto) 86.8 % Lymphocytes (%) (Auto) 6.5 % Monocytes (%) (Auto) 6.1 % Eosinophils (%) (Auto) 0.2 % Basophils (%) (Auto) 0.1 % Neutrophils # (Auto) 9.43 K/uL Lymphocytes # (Auto) 0.70 K/uL Monocytes # (Auto) 0.66 K/uL Eosinophils # (Auto) 0.02 K/uL Basophils # (Auto) 0.01 K/uL RDW Standard Deviation 50.4 fL RDW Coefficient of Variation 15.9 % Immature Granulocyte % (Auto) 0.3 % Immature Granulocyte # (Auto) 0.03 K/uL Sodium Level 141 mmol/L Potassium Level 4.7 mmol/L Chloride Level 107 mmol/L Carbon Dioxide Level 34 mmol/L Anion Gap 0.0 mmol/L Blood Urea Nitrogen 19 mg/dl Creatinine 0.95 mg/dl Est Creatinine Clear Calc Drug Dose 71.0 ml/min Estimated GFR () 94.3 Estimated GFR (Non- 81.3 BUN/Creatinine Ratio 19.9 Random Glucose 80 mg/dl Calcium Level 9.7 mg/dl Magnesium Level 2.3 mg/dl
--- NOTE | 2018-02-14 13:59 | Hospitalist Progress Note ---
Hospitalist Progress Note Date of Service Feb 14, 2018. Subjective Pt evaluation today including: conversation w/ patient, conversation w/ executive talent acquisition consultant (Pulmonary) Patient much improved today. He has been weaned from BiPAP yesterday to high flow nasal cannula last evening all night. He was weaned off of that this morning to 7 L nasal cannula and is maintaining sats around 92% which is good for him. He denies shortness of breath or cough. As his respiratory status has improved, he is okay with moving forward with thinking about treatment for his cancer. He had a lot of diarrhea through the night which is likely secondary to the Kayexalate that I ordered for his hyperkalemia yesterday. I discussed the case at length with the biometrician. I also discussed the case with oncology and the cable worker helper. All Other Systems: Reviewed and Negative Objective Vital Signs Date Time Temp Pulse Resp B/P (MAP) Pulse Ox O2 Delivery O2 Flow Rate FiO2 02/14/18 10:18 36.6 88 22 107/62 (77) 90 Nasal Cannula 7.0 02/14/18 10:00 24 95 Nasal Cannula 7.0 18 08:00 36.6 99 22 110/66 (81) 94 High Flow Oxygen 40.0 50 02/14/18 08:00 92 High Flow Oxygen 40.0 50 02/14/18 07:06 88 24 93 Nasal Cannula 40.0 50 02/14/18 06:01 98 24 111/76 (88) 96 High Flow Oxygen 40.0 50 8/18 05:02 96 18 114/57 (76) 95 High Flow Oxygen 40.0 50 8/18 04:33 94 22 112/67 (82) 93 High Flow Oxygen 40.0 50 8/18 04:01 36.8 101 20 114/63 (80) 96 High Flow Oxygen 40.0 50 83/18 03:01 85 21 111/61 (78) 94 High Flow Oxygen 40.0 50 8/18 02:39 99 24 96 Nasal Cannula 40.0 50 8/18 02:01 89 22 98/61 (73) 97 High Flow Oxygen 40.0 50 83/18 01:31 108 20 119/71 (87) 96 High Flow Oxygen 40.0 50 8/18 01:01 102 24 100/61 (74) 95 High Flow Oxygen 40.0 50 8 00:01 36.6 116 22 132/75 (94) 93 High Flow Oxygen 40.0 50 818 23:01 90 24 104/53 (70) 94 High Flow Oxygen 40.0 50 818 22:01 109 27 119/74 (89) 96 High Flow Oxygen 40.0 50 18 21:02 112 24 121/68 (85) 96 High Flow Oxygen 40.0 50 18 20:50 112 23 138/68 (91) 94 High Flow Oxygen 40.0 50 18 20:28 109 16 107/42 (63) 94 High Flow Oxygen 40.0 50 02/13/18 20:02 36.8 92 24 114/85 (95) 94 High Flow Oxygen 40.0 50 02/13/18 20:00 95 High Flow Oxygen 40.0 50 18 19:25 97 26 95 Nasal Cannula 40.0 50 02/13/18 19:02 101 21 144/63 (90) 95 High Flow Oxygen 40.0 50 18 18:08 103 24 139/71 (93) 96 High Flow Oxygen 40.0 50 02/13/18 16:00 High Flow Oxygen 40.0 50 02/13/18 16:00 36.7 107 24 116/69 (85) 98 High Flow Oxygen 40.0 50 02/13/18 14:19 96 25 92 BiPAP/CPAP 8.0 02/13/18 14:09 111 92 Physical Exam General Appearance: no apparent distress (Some very mild tachypnea and abdominal retractions but much improved overall from yesterday) Eyes: normal inspection, sclerae normal ENT: hearing grossly normal Neck: trachea midline Respiratory/Chest: + accessory muscle use (Mild as above), + rhonchi (Diffuse but more so on the right lower and middle lung browning), + wheezing (Diffuse) Cardiovascular: regular rate, rhythm, no edema, no murmur Abdomen: normal bowel sounds, non tender, soft Extremities: normal inspection, no pedal edema, no calf tenderness Neurologic/Psychiatric: alert, normal mood/affect, oriented x 3 Skin: normal color, warm/dry, no rash Laboratory Results Last 24 Hours Test 02/13/18 17:12 02/14/18 04:11 02/14/18 06:31 Bedside Glucose 109 mg/dl 96 mg/dl White Blood Count 10.85 K/uL Red Blood Count 3.88 M/uL Hemoglobin 9.2 g/dL Hematocrit 33.4 % Mean Corpuscular Volume 86.1 fL Mean Corpuscular Hemoglobin 23.7 pg Mean Corpuscular Hemoglobin Concent 27.5 g/dl Platelet Count 267 K/uL Mean Platelet Volume 9.2 fL Neutrophils (%) (Auto) 86.8 % Lymphocytes (%) (Auto) 6.5 % Monocytes (%) (Auto) 6.1 % Eosinophils (%) (Auto) 0.2 % Basophils (%) (Auto) 0.1 % Neutrophils # (Auto) 9.43 K/uL Lymphocytes # (Auto) 0.70 K/uL Monocytes # (Auto) 0.66 K/uL Eosinophils # (Auto) 0.02 K/uL Basophils # (Auto) 0.01 K/uL RDW Standard Deviation 50.4 fL RDW Coefficient of Variation 15.9 % Immature Granulocyte % (Auto) 0.3 % Immature Granulocyte # (Auto) 0.03 K/uL Sodium Level 141 mmol/L Potassium Level 4.7 mmol/L Chloride Level 107 mmol/L Carbon Dioxide Level 34 mmol/L Anion Gap 0.0 mmol/L Blood Urea Nitrogen 19 mg/dl Creatinine 0.95 mg/dl Est Creatinine Clear Calc Drug Dose 71.0 ml/min Estimated GFR () 94.3 Estimated GFR (Non- 81.3 BUN/Creatinine Ratio 19.9 Random Glucose 80 mg/dl Calcium Level 9.7 mg/dl Magnesium Level 2.3 mg/dl Assessment and Plan This pt is a 67 y/o M Hx advanced COPD with chronic hypoxic respiratory failure , recent Dx of R lung squamous cell CA, ARVIN infection, CAD, PVD, continues to smoke. The pt is dependent on 3L 02. He presented from the Oncology clinic with progressively worsening SOB over the past day and hypoxia. He presented to the ER where an initial oxygen saturation was in the low 80s on his baseline 3L. He was sent for a CTA due to hypoxia which demonstrated several small third order emboli involving the right and to a lesser extent left lung base. A large, invasive R lung mass is again confirmed. The pt's INR is 2.8 on admission. His family states that recently, numbers have been subtherapeutic due to multiple antibiotics used to treat ARVIN. He does not complain of CP and could not confirm a fever. Initial labs are notable for leukocytosis. Acute on chronic respiratory failure with Hypoxia - multifactorial, likely secondary to COPD exacerbation, large squamous cell lung CA, and multiple small PEs. Initially was improved with IV steroids and received abx, nebs. He then had significant acute worsening respiratory distress and worsening hypoxia as well as hypercapnia on 02/13 and was transferred to the ICU and placed on BiPAP. ABG was 7.20/83/109 initially and then improved slightly to 7.29/66/60. BiPAP was then removed after intolerance after about 6 hours and discussion that he wanted to become a DNR/DNI. He was transitioned to HFNC on which she remained through the night and this morning Now much improved and on 7 L nasal cannula-important not to make pulse ox go greater than 92% CXR stable but possibly expiratory film due to tachypnea on 02/13 -PCT negative -Continue antibiotics with IV Zosyn only, MRSA swab negative and vancomycin discontinued-consider switching to Augmentin tomorrow to finish out a 7 day course -Continue levalbuterol nebulizers -Continue IV steroids and taper down as able to Squamous Cell CA Lung-at least stage 3A with invasion into vertebral body, with pulm nodules/local spread--> CT abd/pel with Left 18mm adrenal nodule and left iliac bone lytic lesion could possibly also be mets. Brain MRI negative for mets -appreciate Pulm input, f/u with Oncology after dc-PET scan to be arranged and follow-up to be arranged after that -will likely need Chemoradiation and possible surgical resection -As long as his COPD can remain in check, he would be a good candidate for treatment for his cancer SVT/Sinus tachycardia/NSVT-short burst of SVT on day 2, asymptomatic; then with persistent ST likely secondary to IV steroids, lung process/hypoxemia,nebs; with a few 2-3 beat runs of VT, one 4 beat run on 02/13. Sinus tachycardia now completely resolved as pulmonary process has improved Echocardiogram with normal EF and no right-sided heart strain, with grade 1 diastolic dysfunction -Continue NS 75 mls/hr -Transition to medical floor off telemetry -weaning down steroids -changed nebs to Levalbuterol/Atrovent Chronic diastolic CHF-noted on echocardiogram this admission -Not volume overloaded Hypercalcemia-corrected calcium up to 11.58 on 02/13, could be dehydration vs from malignancy? Now improved today -Continue IV fluids -follow Ca++ levels Hyperkalemia-K+ 5.5 and was given Kayexalate 15 g p.o. 1 on 02/13, now improved today after many loose bowel movements to 4.7. No ECG changes at that time Renal function normal -follow BMP CAD - no evidence of ACS - cont daily ASA Tobacco user- Discussed smoking cessation ARVIN-dxd on DNA probe from bronch in [place] in December 2017. No need for treatment as per Pulm, needs treatment for SCC lung and meds for ARVIN high risk -dc ethambutol, rifampin, and azithro upon dc COPD Exacerbation-still with significant wheezing, but hypercapnic respiratory failure is improving, hypoxia is improving as above. -Continues on bronchodilators, IV steroids and wean down -Supplemental O2 Acute PEs-no DVT, has h/o PEs, with CA, could be tumor emboli as per Pulm, cost of taking Xarelto is $100/month vs Lovenox $374/month with prior auth. -permanently dc'd coumadin -follow INR--> down to 1.5 and started Lovenox 1mg/kg q12h for now -will likely end up transitioning to Xarelto as is cheaper prior to discharge Proph-Lovenox Dispo-transfer to medical floor, patient is very anxious for discharge to home- he is agreeable to stay until his oxygen requirement is a little bit lower-he is hoping for discharge to home on Saturday
[2018-02-14] MEDS ORDERED: PIPERACILL/TAZOBAC IV 3.375 GM in DEXTROSE 5% 100ML 100 ML IV SCH (14:00)
[2018-02-14] MEDS: PIPERACILL/TAZOBAC IV 3.375 GM in D5W 100ML IV SCH ×2 (15:12→21:36)
[2018-02-15] VITALS (12 sets, daily range): BP systolic 107–131; BP diastolic 69–77; PULSE 75–101; TEMP 36.3–36.6; O2SAT 88–98; BMI 24.4
[2018-02-15] MEDS: LEVALBUTEROL 1.25MG/0.5ML NEB INH SCH ×4 (02:13→18:55)
[2018-02-15] MEDS: IPRATROPIUM BROMIDE NEB SOLN 0.02% 2.5 ML VIAL INH SCH ×4 (02:14→18:55)
[2018-02-15] MEDS: PIPERACILL/TAZOBAC IV 3.375 GM in D5W 100ML IV SCH (05:42)
[2018-02-15 06:20] LABS: HEMATOCRIT 35.4 % (42-52); HEMOGLOBIN 10.3 g/dL (14.0-18.0); MEAN CELL VOLUME 84.1 fL (80-100); MEAN CORPUSCULAR HEMOGLOBIN 24.5 pg (25-34); MEAN CORPUSCULAR HGB CONC 29.1 g/dl (32-36); MEAN PLATELET VOLUME 9.1 fL (7.4-10.4); PLATELET COUNT 287 K/uL (130-400); RED CELL DISTRIBUTION WIDTH CV 15.6 % (11.5-14.5); RED CELL DISTRIBUTION WIDTH SD 47.9 fL (36.4-46.3); WHITE BLOOD COUNT 13.09 K/uL (4.8-10.8)
[2018-02-15 06:23] LABS: CALCIUM 10.6 mg/dl (8.5-10.1); CREATININE 0.78 mg/dl (0.60-1.40); POTASSIUM 4.4 mmol/L (3.5-5.1)
[2018-02-15 06:52] LABS: BASO % 0.2 %; BASO ABS # 0.02 K/uL (0-0.2); EOS ABS # 0.13 K/uL (0-0.5); IG# 0.04 K/uL (0.00-0.02); LYMPH % 7.5 %; LYMPH ABS # 0.98 K/uL (1.2-3.4); MONO % 6.8 %; MONO ABS # 0.89 K/uL (0.11-0.59); NEUT % 84.2 %; NEUT ABS # 11.03 K/uL (1.4-6.5)
[2018-02-15] MEDS: METHYLPREDNISOLONE IV 20 MG in SYRINGE 0 ML IV SCH (08:04)
[2018-02-15] MEDS: ENOXAPARIN 80 MG/0.8 ML SYR SQ SCH ×2 (08:05→21:41)
[2018-02-15] MEDS ORDERED: GUAIFENESIN 600 MG TABCR PO ONE (11:15)
[2018-02-15] MEDS ORDERED: FUROSEMIDE 40 MG TAB PO ONE (11:15)
[2018-02-15] MEDS ORDERED: AMOXICILLIN/CLAVULANATE TAB 875 MG TAB PO ONE (11:15)
[2018-02-15] MEDS ORDERED: PAMIDRONATE DISODIUM IV INJ 60 MG in SODIUM CHLORIDE 0.9% 1000ML 1,000 ML IV ONE (12:30)
--- NOTE | 2018-02-15 12:49 | Pulmonology Progress Note ---
Pulmonary Progress Note Date of Service Feb 15, 2018. Attending Dr. Magallon Subjective Patient notes dramatic improvement in his respiratory status in keeps asking/ would like to go home. He does note dyspnea on exertion and intermittent dyspnea at rest. Objective Patient was sitting up in a chair today and add able to have full conversations with minimal accessory muscle use. PmHx: Squamous cell carcinoma of the lung, Very severe COPD (FEV1: 27%) with significant reversible component, CAD (coronary artery disease), Chronic anticoagulation, CAD/TX, psoriasis, PVD, tobacco use disorder PsHx: Colonoscopy, S/P femoral-popliteal bypass surgery, to amputation, right inguinal hernia repair, transthoracic needle aspiration 01/20/2018, bronchoscopy /EBUS Vital signs: Stable on 5-6 liters nasal cannula Respiratory: Mild rhonchi and expiratory wheezing appreciated Cardiac: S1-S2 tachycardic irregular rhythm Abdomen: Positive bowel sounds but mildly distended, no tenderness to deep palpation no rebound appreciated Current inpatient own hospital workup: WBC: 13k INR: 1.0 Procalcitonin: 0.25 AB.20/83/109/32 on 10L AB.29/66/60/31 on BiPaP 15/5 FiO2 35% Bilateral lower extremity DVT study: No sonographic evidence of DVT CTA: Supple small 3rd order emboli involving the right and to a lesser extent left lung base, large invasive right lower lobe mass/cavitating, as well as thoracic spinal, additional scattered nodular densities of the ride hemithoracic cavity consistent with metastatic foci,, developing upper abdominal retro crucial adenopathy In-hospital Pulmonary Medications: 1. Prednisone 40 mg daily 2. Xopenex/Atrovent nebulizer 3. Prednisone 40 mg 4. Augmentin p.o. b.i.d. 5. Lovenox 70 mg b.i.d. 6. Guaifenesin 1.2 grams q.12 hours Assessment & Plan 67-year-old gentleman with newly diagnosed squamous cell carcinoma of the lung now with progressive respiratory insufficiency: 1. Respiratory Insufficiency: Patient's overall oxygen requirements are slowly decreasing and he is responding well to therapy. At this time with continue on current medical regimen and monitoring. 2. Pulmonary Emboli: Recent CT angio of the chest does show multiple subsegmental emboli in the bilateral lower lobes. These could be tumor emboli verses clots/thrombotic in nature. Patient currently being tree with Lovenox. Will defer to Hematology Oncology for chronic anticoagulation. 3. Leukocytosis: Patient is notably stabilizing with mild bump in his WBC count to 13K but notably afebrile in no active mucus production. At this time I believe we should continue his current antibiotic regimen which has been switched to Augmentin for a total 7-10 day course. 4. Squamous Cell Ca: Patient's CT suggest primary tumor invasion of vertebra T8-10 which defines a T4 primary mass. This would place the patient add stage IIIA. As the patient's FEV1 is only 27 % predicted he is not a candidate for surgical intervention. I will leave any further workup/treatment to the patient 's oncologist/radiation oncologist. 5. Code status: Patient is currently a DNR/DNI. Sign off: At this time the pulmonary team will sign off please contact office if the patient's clinical status changes. Data Medications: Current Inpatient Medications Medications (Trade) Dose Ordered Sig/Danae Route Start Time Stop Time Status Last Admin Dose Admin Acetaminophen (Tylenol Tab) 650 mg Q4H PRN PO 02/11/18 16:45 03/13/18 16:44 Al Hydrox/Mg Hydrox/Simethicone (Maalox Max Susp) 15 ml Q4H PRN PO 02/11/18 16:45 03/13/18 16:44 Magnesium Hydroxide (Milk Of Magnesia Susp) 30 ml Q12H PRN PO 02/11/18 16:45 03/13/18 16:44 Zolpidem Tartrate (Ambien Tab) 5 mg HSZ PRN PO 02/11/18 16:45 03/13/18 16:44 Ondansetron HCl (Zofran Inj) 4 mg Q6H PRN IV 02/11/18 16:45 03/13/18 16:44 02/12/18 20:37 4 MG Morphine Sulfate (MoRPHine SULFATE INJ) 2 mg Q30M PRN IV 02/11/18 16:45 02/25/18 16:44 Polyethylene (Miralax Powder Packet) 17 gm DAILY PRN PO 02/11/18 17:00 03/13/18 16:59 Enoxaparin Sodium (Lovenox Inj) 70 mg Q12 SQ 02/13/18 09:00 03/15/18 08:59 02/15/18 08:05 70 MG Levalbuterol (Xopenex 0.63 Mg/ 3 Ml Neb) 0.63 mg Q2H PRN INH 02/13/18 10:00 03/15/18 09:59 02/13/18 11:32 0.63 MG Ipratropium [place] (Atrovent 0.02% 0.5MG/2.5ML Neb) 0.5 mg Q6R INH 02/13/18 15:00 03/15/18 14:59 02/15/18 07:33 0.5 MG Levalbuterol (Xopenex 1.25MG/ 0.5ML Neb) 1.25 mg Q6R INH 02/13/18 15:00 03/15/18 14:59 02/15/18 07:33 1.25 MG Guaifenesin (Mucinex Contr Rel Tab) 1,200 mg Q12 PO 02/15/18 21:00 03/17/18 20:59 Amoxicillin/ Clavulanate Potassium (Augmentin Tab) 875 mg BIDM PO 02/15/18 17:00 02/22/18 16:59 Prednisone (PredniSONE TAB) 40 mg QAM PO 02/16/18 08:00 03/18/18 07:59 Furosemide (Lasix Tab) 40 mg QAM PO 02/16/18 08:00 03/18/18 07:59 Pamidronate Disodium 60 mg/ Sodium Chloride 1,020 ml @ 255 mls/hr Q4H ONCE IV 02/15/18 12:30 02/15/18 16:29 Vital Signs: Date Time Temp Pulse Resp B/P (MAP) Pulse Ox O2 Delivery O2 Flow Rate FiO2 02/15/18 11:41 36.6 81 20 107/70 (82) 93 Nasal Cannula 5.0 02/15/18 07:33 101 16 98 Nasal Cannula 5.0 02/15/18 07:05 36.6 75 18 119/69 (86) 94 Nasal Cannula 6.0 02/15/18 04:43 83 20 129/77 (94) 92 Nasal Cannula 6.0 02/15/18 02:14 82 16 96 Nasal Cannula 5.0 02/15/18 00:00 88 Nasal Cannula 6.0 02/14/18 23:43 36.5 79 20 150/76 (100) 02/14/18 21:05 88 Nasal Cannula 6.0 02/14/18 20:01 86 18 93 Nasal Cannula 5.0 02/14/18 17:20 93 Nasal Cannula 5.0 02/14/18 14:53 36.7 78 22 100/62 (75) 93 Nasal Cannula 5.0 02/14/18 14:08 85 20 98 Nasal Cannula 7.0 Laboratory Results: Last 24 Hours Test 02/14/18 16:51 02/14/18 20:18 02/15/18 05:50 Bedside Glucose 124 mg/dl 145 mg/dl White Blood Count 13.09 K/uL Red Blood Count 4.21 M/uL Hemoglobin 10.3 g/dL Hematocrit 35.4 % Mean Corpuscular Volume 84.1 fL Mean Corpuscular Hemoglobin 24.5 pg Mean Corpuscular Hemoglobin Concent 29.1 g/dl Platelet Count 287 K/uL Mean Platelet Volume 9.1 fL Neutrophils (%) (Auto) 84.2 % Lymphocytes (%) (Auto) 7.5 % Monocytes (%) (Auto) 6.8 % Eosinophils (%) (Auto) 1.0 % Basophils (%) (Auto) 0.2 % Neutrophils # (Auto) 11.03 K/uL Lymphocytes # (Auto) 0.98 K/uL Monocytes # (Auto) 0.89 K/uL Eosinophils # (Auto) 0.13 K/uL Basophils # (Auto) 0.02 K/uL RDW Standard Deviation 47.9 fL RDW Coefficient of Variation 15.6 % Immature Granulocyte % (Auto) 0.3 % Immature Granulocyte # (Auto) 0.04 K/uL Hypochromasia PRESENT Basophilic Stippling OCCASIONAL Prothrombin Time 10.8 SECONDS Prothromb Time International Ratio 1.0 Sodium Level 138 mmol/L Potassium Level 4.4 mmol/L Chloride Level 101 mmol/L Carbon Dioxide Level 36 mmol/L Anion Gap 1.0 mmol/L Blood Urea Nitrogen 15 mg/dl Creatinine 0.78 mg/dl Est Creatinine Clear Calc Drug Dose 86.5 ml/min Estimated GFR () 106.7 Estimated GFR (Non- 92.1 BUN/Creatinine Ratio 18.7 Random Glucose 90 mg/dl Calcium Level 10.6 mg/dl
[2018-02-15] MEDS: AMOXICILLIN/CLAVULANATE TAB 875 MG TAB PO SCH (17:53)
[2018-02-15] MEDS: GUAIFENESIN 600 MG TABCR PO SCH (21:40)
--- NOTE | 2018-02-15 23:45 | Progress Note ---
Subjective Date of Service: Feb 15, 2018. Subjective Pt evaluation today including: conversation w/ patient, conversation w/ family ( by phone), physical exam, chart review, lab review, conversation w/ strategic solutions consultant (pulmonary, nephrology ("jane"), heme/onc), review of inpatient medication list Pain: denies back pain, cp, abd pain PO Intake: fair Voiding: no voiding problems patient nearly signed out "AMA" last evening he reluctantly stayed he once again expresses a desire to go home today stating "I feel fine" he reports his breathing is at baseline cough is improved denies dyspnea staff report he desats with very little walking and continues to require 5 L NC O2 denies depression Problem List Medical Problems: (1) Metastatic squamous cell carcinoma Status: Acute (2) Pulmonary embolism Status: Acute Review of Systems Constitutional: No fever Respiratory: + wheezing, + dyspnea on exertion, No sputum, No shortness of breath, No dyspnea at rest, No hemoptysis Cardiac: + edema (about the same as typically encountered at home), No chest pain, No orthopnea Abdomen: No pain, No nausea, No vomiting, No diarrhea Objective Vital Signs Date Time Temp Pulse Resp B/P (MAP) Pulse Ox O2 Delivery O2 Flow Rate FiO2 02/15/18 07:33 101 16 98 Nasal Cannula 5.0 02/15/18 07:05 36.6 75 18 119/69 (86) 94 Nasal Cannula 6.0 02/15/18 04:43 83 20 129/77 (94) 92 Nasal Cannula 6.0 02/15/18 02:14 82 16 96 Nasal Cannula 5.0 02/15/18 00:00 88 Nasal Cannula 6.0 02/14/18 23:43 36.5 79 20 150/76 (100) 02/14/18 21:05 88 Nasal Cannula 6.0 02/14/18 20:01 86 18 93 Nasal Cannula 5.0 02/14/18 17:20 93 Nasal Cannula 5.0 02/14/18 14:53 36.7 78 22 100/62 (75) 93 Nasal Cannula 5.0 02/14/18 14:08 85 20 98 Nasal Cannula 7.0 Physical Exam General Appearance: no apparent distress ENT: pharynx normal Neck: no JVD Respiratory/Chest: no respiratory distress, no accessory muscle use, + decreased breath sounds (bases), + rhonchi, + wheezing Cardiovascular: regular rate, rhythm, no gallop, no murmur Abdomen: normal bowel sounds, non tender, soft, no organomegaly Extremities: + pedal edema (1-2+b/l) Neurologic/Psychiatric: alert, oriented x 3 Skin: + pertinent finding (stasis changes b/l legs) Laboratory Results Last 24 Hours Test 02/14/18 16:51 02/14/18 20:18 02/15/18 05:50 Bedside Glucose 124 mg/dl 145 mg/dl White Blood Count 13.09 K/uL Red Blood Count 4.21 M/uL Hemoglobin 10.3 g/dL Hematocrit 35.4 % Mean Corpuscular Volume 84.1 fL Mean Corpuscular Hemoglobin 24.5 pg Mean Corpuscular Hemoglobin Concent 29.1 g/dl Platelet Count 287 K/uL Mean Platelet Volume 9.1 fL Neutrophils (%) (Auto) 84.2 % Lymphocytes (%) (Auto) 7.5 % Monocytes (%) (Auto) 6.8 % Eosinophils (%) (Auto) 1.0 % Basophils (%) (Auto) 0.2 % Neutrophils # (Auto) 11.03 K/uL Lymphocytes # (Auto) 0.98 K/uL Monocytes # (Auto) 0.89 K/uL Eosinophils # (Auto) 0.13 K/uL Basophils # (Auto) 0.02 K/uL RDW Standard Deviation 47.9 fL RDW Coefficient of Variation 15.6 % Immature Granulocyte % (Auto) 0.3 % Immature Granulocyte # (Auto) 0.04 K/uL Hypochromasia PRESENT Basophilic Stippling OCCASIONAL Prothrombin Time 10.8 SECONDS Prothromb Time International Ratio 1.0 Sodium Level 138 mmol/L Potassium Level 4.4 mmol/L Chloride Level 101 mmol/L Carbon Dioxide Level 36 mmol/L Anion Gap 1.0 mmol/L Blood Urea Nitrogen 15 mg/dl Creatinine 0.78 mg/dl Est Creatinine Clear Calc Drug Dose 86.5 ml/min Estimated GFR () 106.7 Estimated GFR (Non- 92.1 BUN/Creatinine Ratio 18.7 Random Glucose 90 mg/dl Calcium Level 10.6 mg/dl Assessment and Plan 67 y/o M Hx advanced COPD with chronic hypoxic respiratory failure on home O2, recent diagnosis of right lung squamous cell CA, ?? ARVIN infection, CAD, PVD, and long-standing tobacco dependence - 1. Acute on chronic respiratory failure with Hypoxia - multifactorial, likely secondary to COPD exacerbation, squamous cell lung CA, and multiple small PEs. Gradually improving from an O2 standpoint (was requiring BIPAP in the ICU several days ago, now down to 5 L NC). 2. COPD with exacerbation - slow gradual improvement. d/c IV steroids, change to po prednisone today. Cont nebs, inhalers, supportive care. 3. probable post-obstructive pneumonia - d/c zosyn, change to augmentin. Day # 5 / 7. 4. hypercalcemia - corrected calcium level is closer to 11.5. Spoke with heme/ on and nephrology - both feel this should be treated. The high calcium is due to his cancer. Pamidronate 60mg IV x 1. Lasix will help, too. 5. chronic diastolic CHF - resume lasix 40mg daily. Largely compensated. 6. Squamous Cell CA Lung - at least stage 3A with invasion into vertebral body , with pulm nodules/local spread; stage 4 possible - adrenal mets? to follow-up with Dr. Marcus after d/c to discuss treatment options. 7. hyperkalemia - resolved. 8. b/l PEs - these were discovered in the setting of chronic warfarin therapy. Now on lovenox 70mg SC BID. Could consider lovenox vs xarelto at d/c. Xarelto apparently would be cheaper vs the lovenox. 9. CAD - no ischemic symptoms at this time. Cont asa. 10. tobacco dependence - encouraged to quit. 11. ?ARVIN infection - pulmonary not recommending Rx at this time. All ARVIN meds discontinued. 12. DVT proph - lovenox. PT OT morales requested to determine if he is safe to return home updated by phone 02/15/18 Continued [facility] stay due to: multiple IV medications needed Discharge planning: home (vs other)
[2018-02-16] VITALS (9 sets, daily range): BP systolic 114–129; BP diastolic 72–78; PULSE 74–94; TEMP 36.4–36.8; O2SAT 89–96; BMI 24.8
[2018-02-16] MEDS: IPRATROPIUM BROMIDE NEB SOLN 0.02% 2.5 ML VIAL INH SCH ×4 (02:00→18:46)
[2018-02-16] MEDS: LEVALBUTEROL 1.25MG/0.5ML NEB INH SCH ×4 (02:00→18:46)
[2018-02-16 06:07] LABS: HEMATOCRIT 34.6 % (42-52); HEMOGLOBIN 10.1 g/dL (14.0-18.0); MEAN CORPUSCULAR HEMOGLOBIN 23.9 pg (25-34); MEAN CORPUSCULAR HGB CONC 29.2 g/dl (32-36); MEAN PLATELET VOLUME 9.6 fL (7.4-10.4); PLATELET COUNT 277 K/uL (130-400); RED CELL DISTRIBUTION WIDTH CV 15.9 % (11.5-14.5); RED CELL DISTRIBUTION WIDTH SD 47.9 fL (36.4-46.3); WHITE BLOOD COUNT 15.09 K/uL (4.8-10.8)
[2018-02-16 06:37] LABS: CREATININE 0.7 mg/dl (0.60-1.40); POTASSIUM 4.5 mmol/L (3.5-5.1)
[2018-02-16] MEDS: AMOXICILLIN/CLAVULANATE TAB 875 MG TAB PO SCH ×2 (09:20→17:50)
[2018-02-16] MEDS: FUROSEMIDE 40 MG TAB PO SCH (09:20)
[2018-02-16] MEDS: GUAIFENESIN 600 MG TABCR PO SCH ×2 (09:20→20:06)
[2018-02-16] MEDS: RIVAROXABAN TAB 15 MG TAB PO SCH ×2 (11:13→20:07)
--- NOTE | 2018-02-16 14:32 | DIAGNOSTIC IMAGING REPORT ---
CHEST 2 VIEWS ROUTINE CLINICAL HISTORY: lung ca, COPD, pneumonia, interval change COMPARISON STUDY: 02/13/2018 FINDINGS: Mildly progressive cavitary mass of the right mid and lower lung region. Maximum dimension currently is 10 cm increased in the prior study of 8.6 cm. There is a small developing parenchymal infiltrate left base. Upper lungs are considered clear. IMPRESSION: Progressive right basilar cavitary mass with developing parenchymal infiltrative changes left lung base. The lateral projection also suggested consolidative changes potentially of the lingula versus left lower lobe. The above report was generated using voice recognition software. It may contain grammatical, syntax or spelling errors. Electronically signed by: Jas Reed M.D. 02/16/2018 2:31 PM Dictated Date/Time: 02/16/2018 2:29 PM
--- NOTE | 2018-02-16 17:18 | DIAGNOSTIC IMAGING REPORT ---
(CHEST) THORAX WITHOUT CT DOSE: 312.33 mGy.cm HISTORY: Lung cancer right-sided squamous cell lung ca, b/l pneumonia TECHNIQUE: Transaxial acquisition with multi axial reformatted images. A dose lowering technique was utilized adhering to the principles of ALARA. COMPARISON: 02/11/2018 FINDINGS: The large partially necrotic mass of the posterior aspect of the right hemithorax is again noted. Maximum dimensions are 8 x 12 cm stable to perhaps minimally increased in volume from the prior study. Destructive characteristics of several posterior ribs, right paravertebral structures, as well as extension to a least 2 right neuroforamina are noted. This appearance is in general similar. A destructive components are essentially unchanged. There is been interval development of partial right middle lobe atelectatic and/or infiltrative change. There is a small right effusion mildly increased in prior from the prior study. There is a small left effusion. Nodular densities right lung base are mildly progressive. Several demonstrate central necrosis. There is a small left effusion with potential early developing nodularity of the left lower lobe. The upper lungs remain generally clear. Hilar and mediastinal regions are generally stable. Right middle lobe atelectatic change potentially relates to a developing additional nodular component of the right perihilar region. A large cyst of the upper aspect of left kidney is generally stable. IMPRESSION: 1. Mildly progressive disease of the mid to lower aspects of the chest bilaterally. 2. Large destructive lesion with central necrosis shows a slight increase in volume. 3. Interval development of right middle lobe atelectatic change with probable developing nodularity and or adenopathy of the right hilum. 4. Moderately progressive basilar pulmonary nodularity bilaterally with interval small bilateral pleural effusions. 5. The overall appearance is suggestive of progressive disease with postobstructive atelectasis of the right middle lobe. The above report was generated using voice recognition software. It may contain grammatical, syntax or spelling errors. Electronically signed by: Jas Reed M.D. 02/16/2018 5:17 PM Dictated Date/Time: 02/16/2018 5:00 PM
--- NOTE | 2018-02-16 20:09 | Progress Note ---
Subjective Date of Service: Feb 16, 2018. Subjective Pt evaluation today including: conversation w/ patient (multiple visits today) , conversation w/ family (at bedside, as well as by phone), physical exam, chart review, lab review, review of studies (cxr, CT chest), conversation w/ datastage consultant (pulmonary (Dr. Magallon)), review of inpatient medication list Pain: none reported PO Intake: fair Voiding: no voiding problems patient reports he spent the entire night sleeping in chair at bedside he blamed that on frequent urination from lasix, but he received the lasix at 1330 yesterday afternoon mentioned to the nursing staff that the patient himself increased the O2 on the wall today because he was dyspneic he continues with cough and sputum production LEAL occurs w/ minimal activity and him think "he is going to in the hospital" and they "want him to at home." when the patient was asked how aggressive he wanted to be with his care he stated he wanted to treat the cancer in hopes of "curing it" Problem List Medical Problems: (1) Metastatic squamous cell carcinoma Status: Acute (2) Pulmonary embolism Status: Acute Review of Systems Constitutional: No fever, No chills Respiratory: + cough, + sputum, + wheezing, + shortness of breath, + dyspnea on exertion Cardiac: + orthopnea, + edema, No chest pain Abdomen: No pain, No nausea, No vomiting Objective Vital Signs Date Time Temp Pulse Resp B/P (MAP) Pulse Ox O2 Delivery O2 Flow Rate FiO2 02/16/18 19:45 36.7 83 20 114/75 (88) 96 Nasal Cannula 4.0 02/16/18 18:49 74 16 96 Nasal Cannula 5.0 02/16/18 15:16 36.8 83 20 114/72 (86) 91 2.0 02/16/18 13:35 87 16 89 Nasal Cannula 5.0 02/16/18 11:33 36.4 87 22 122/78 (93) 94 Nasal Cannula 3.0 94 02/16/18 09:00 Nasal Cannula 4.0 02/16/18 07:27 36.8 77 20 121/74 (90) 93 Nasal Cannula 4.0 02/16/18 06:49 87 16 92 Nasal Cannula 4.0 02/16/18 04:25 87 20 129/75 (93) 93 Nasal Cannula 4.0 02/16/18 02:01 87 16 93 Nasal Cannula 4.0 02/15/18 23:09 36.3 95 24 131/75 (93) 89 Nasal Cannula 4.0 Physical Exam General Appearance: no apparent distress ENT: pharynx normal Neck: no JVD Respiratory/Chest: no respiratory distress, no accessory muscle use, + decreased breath sounds (bases), + crackles (right base), + rhonchi (extensive) , + wheezing (extensive) Cardiovascular: regular rate, rhythm, no gallop, no murmur Abdomen: normal bowel sounds, non tender, soft, no organomegaly Extremities: + pedal edema (1-2+ b/l ) Neurologic/Psychiatric: alert, oriented x 3, + depressed affect Skin: + pertinent finding (stasis changes b/l legs) Laboratory Results Last 24 Hours Test 02/16/18 05:30 White Blood Count 15.09 K/uL Red Blood Count 4.22 M/uL Hemoglobin 10.1 g/dL Hematocrit 34.6 % Mean Corpuscular Volume 82.0 fL Mean Corpuscular Hemoglobin 23.9 pg Mean Corpuscular Hemoglobin Concent 29.2 g/dl RDW Standard Deviation 47.9 fL RDW Coefficient of Variation 15.9 % Platelet Count 277 K/uL Mean Platelet Volume 9.6 fL Sodium Level 135 mmol/L Potassium Level 4.5 mmol/L Chloride Level 98 mmol/L Carbon Dioxide Level 35 mmol/L Anion Gap 2.0 mmol/L Blood Urea Nitrogen 13 mg/dl Creatinine 0.70 mg/dl Est Creatinine Clear Calc Drug Dose 96.3 ml/min Estimated GFR () 111.6 Estimated GFR (Non- 96.3 BUN/Creatinine Ratio 18.1 Random Glucose 82 mg/dl Calcium Level 10.0 mg/dl Assessment and Plan 67 y/o M Hx advanced COPD with chronic hypoxic respiratory failure on home O2, recent diagnosis of right lung squamous cell CA, ?? ARVIN infection, CAD, PVD, and long-standing tobacco dependence - 1. Acute on chronic respiratory failure with Hypoxia - multifactorial, secondary to COPD exacerbation, extensive squamous cell lung CA, and multiple small PEs. Was gradually improving from an O2 standpoint (was requiring BIPAP in the ICU several days ago, now down to 5 L NC) but lung exam unchanged today and cxr/CT chest with progressive pneumonic infiltrates, RML collapse/ atelectasis, and worsening cancer. See below. 2. COPD with exacerbation - no improvement overnight. No wean on steroids today. Adding vibration vest and flutter valve. Cont mucinex, incentive spirometry, nebs, supportive care. 3. right-sided post-obstructive pneumonia and probable LLL pneumonia - continue augmentin. Day #6 / 7. However, consider longer course and adding better gram negative coverage in light of worsening cxr/CT chest. 4. hypercalcemia - 2nd to #6 - s/p Pamidronate 60mg IV x 1 02/15/18. total calcium improved today BMP am. 5. chronic diastolic CHF - lasix 40mg daily. Largely compensated. 6. Squamous Cell CA Lung - at least stage 3A with invasion into vertebral body , with pulm nodules/local spread; stage 4 possible - adrenal mets? to follow-up with Dr. Marcus after d/c to discuss treatment options. poor prognosis there is cancer progression radiographically and his COPD is quite severe which may limit Rx options 7. hyperkalemia - resolved. 8. b/l PEs - these were discovered in the setting of chronic warfarin therapy. Now on lovenox 70mg SC BID. Change to Xarelto 15mg BID in [place] of lovenox. 9. CAD - no ischemic symptoms at this time. Cont asa. 10. tobacco dependence - encouraged to quit. 11. ?ARVIN infection - pulmonary not recommending Rx at this time. All ARVIN meds discontinued. 12. DVT proph - xarelto PT OT evals requested to determine if he is safe to return home; both recommended return home lengthy discussion held with patient and his on first visit this AM updated patient/ on 2nd visit visited patient a 3rd time with CT results and my discussions w/ Dr. Magallon then called by phone and gave CT results we advised remaining in hospital tomorrow we need to address goals of care with patient and total time today over 3+ visits to pt's room, several phone calls, reviewing imaging, etc -- 70 min Continued [facility] stay due to: multiple IV medications needed Discharge planning: uncertain
[2018-02-17] VITALS (12 sets, daily range): BP systolic 100–125; BP diastolic 60–79; PULSE 74–91; TEMP 36–36.7; O2SAT 90–96; BMI 24.1
[2018-02-17] MEDS: MoRPHine SULFATE 2 MG/ML CARP IV PRN ×3 (00:22→19:36)
[2018-02-17] MEDS: LEVALBUTEROL 1.25MG/0.5ML NEB INH SCH ×4 (02:20→18:50)
[2018-02-17] MEDS: IPRATROPIUM BROMIDE NEB SOLN 0.02% 2.5 ML VIAL INH SCH ×4 (02:20→18:50)
[2018-02-17 07:43] LABS: CALCIUM 9.8 mg/dl (8.5-10.1); CREATININE 0.69 mg/dl (0.60-1.40); POTASSIUM 4.3 mmol/L (3.5-5.1)
[2018-02-17] MEDS: AMOXICILLIN/CLAVULANATE TAB 875 MG TAB PO SCH ×2 (07:49→17:17)
[2018-02-17] MEDS: RIVAROXABAN TAB 15 MG TAB PO SCH ×2 (07:50→19:37)
[2018-02-17] MEDS: FUROSEMIDE 40 MG TAB PO SCH (07:50)
[2018-02-17] MEDS: GUAIFENESIN 600 MG TABCR PO SCH ×2 (07:50→19:36)
--- NOTE | 2018-02-17 14:25 | Palliative Care Progress Note ---
Palliative Care Progress Note Date of Service Feb 17, 2018. Subjective Pt evaluation today including: conversation w/ patient, physical exam, chart review, lab review, review of studies, conversation w/ jd edwards consultant Pain: Patient denies current pain PO Intake: Good Voiding: no voiding problems Patient awake and alert, sitting in a chair in his room. No family at bedside. Patient states he is able to ambulate to the bathroom and back without any increased shortness of breath. Patient is currently on 4 L nasal cannula with sats of 93%. Patient now with more aggressive pulmonary toilet including percussion vest and flutter valve. Patient able to converse with minimal increase in shortness of breath. States his breathing is currently comfortable. Review of Systems Constitutional: No fever, No chills Eyes: No worsening of vision ENT: No hearing loss Respiratory: + shortness of breath, + dyspnea on exertion Cardiac: No chest pain Abdomen: No pain Male : No dysuria Neurologic: + weakness, No memory loss Endo: + fatigue Objective Vital Signs Date Time Temp Pulse Resp B/P (MAP) Pulse Ox O2 Delivery O2 Flow Rate FiO2 02/17/18 13:43 80 16 93 Nasal Cannula 4.0 02/17/18 11:27 36.7 76 20 105/69 (81) 93 Nasal Cannula 4.0 Humidified Oxygen 02/17/18 11:25 Nasal Cannula 4.0 02/17/18 07:44 36.2 76 20 123/75 (91) 90 2.0 02/17/18 07:09 81 16 92 Nasal Cannula 4.0 02/17/18 03:51 36.4 74 20 112/76 (88) 95 Nasal Cannula 4.0 02/17/18 02:32 Nasal Cannula 4.0 02/17/18 02:23 88 14 96 Nasal Cannula 4.0 02/17/18 00:20 36.2 77 20 125/79 (94) 93 Nasal Cannula 4.0 02/16/18 19:45 36.7 83 20 114/75 (88) 96 Nasal Cannula 4.0 02/16/18 18:49 74 16 96 Nasal Cannula 5.0 02/16/18 15:16 36.8 83 20 114/72 (86) 91 2.0 Physical Exam General Appearance: + mild distress (At rest) Eyes: EOMI ENT: hearing grossly normal Respiratory/Chest: + decreased breath sounds (R>>L), + pertinent finding ( Large palpable mass right posterior chest wall) Cardiovascular: regular rate, rhythm Abdomen: + pertinent finding (Not distended) Extremities: normal range of motion Neurologic/Psychiatric: alert, oriented x 3 Skin: warm/dry Laboratory Results Last 24 Hours Test 02/17/18 06:04 Sodium Level 137 mmol/L Potassium Level 4.3 mmol/L Chloride Level 98 mmol/L Carbon Dioxide Level 36 mmol/L Anion Gap 3.0 mmol/L Blood Urea Nitrogen 15 mg/dl Creatinine 0.69 mg/dl Est Creatinine Clear Calc Drug Dose 97.7 ml/min Estimated GFR () 112.3 Estimated GFR (Non- 96.9 BUN/Creatinine Ratio 21.5 Random Glucose 63 mg/dl Calcium Level 9.8 mg/dl Assessment and Plan (1) Dyspnea Assessment & Plan: Improved with aggressive pulmonary toilet. Patient comfortable on 4 L O2 (2) Palliative care encounter Assessment & Plan: Discussed with patient questions to ask when he meets with oncology as far as severity of side effects and benefit versus burden of chemo. Patient will likely benefit from hospice referral, however will not initiate this conversation until after patient meets with oncology. Will continue to follow patient while inpatient, can follow-up as outpatient if patient desires (3) Hypoxia Assessment & Plan: Patient sat 93% on 4 L, able to ambulate to the bathroom and back, however if he ambulates any further gets short of breath (4) Metastatic squamous cell carcinoma Status: Acute Assessment & Plan: Patient with metastatic disease, lesions have increased on CT scan over the past 5 days. Dyspnea improved since admission Palliative Performance Scale: 40 % Continued [facility] stay due to: multiple IV medications needed Discharge planning: uncertain Counseling and Coordination Total time spent 35 minutes with greater than 50% of the time spent at bedside discussing factors related to medical decision-making
--- NOTE | 2018-02-17 15:59 | Pulmonology Progress Note ---
Pulmonary Progress Note Date of Service Feb 17, 2018. Attending Dr. Hein Subjective The patient has been having shortness of breath at baseline, he tolerated the BiPAP overnight, he did not have any chest pain. Objective Patient was sitting up in a chair today and add able to have full conversations with minimal accessory muscle use. PmHx: Squamous cell carcinoma of the lung, Very severe COPD (FEV1: 27%) with significant reversible component, CAD (coronary artery disease), Chronic anticoagulation, CAD/[place], psoriasis, PVD, tobacco use disorder PsHx: Colonoscopy, S/P femoral-popliteal bypass surgery, to amputation, right inguinal hernia repair, transthoracic needle aspiration 01/20/2018, bronchoscopy /EBUS Vital signs: Stable on 5-6 liters nasal cannula Respiratory: Mild rhonchi and expiratory wheezing appreciated Cardiac: S1-S2 tachycardic irregular rhythm Abdomen: Positive bowel sounds but mildly distended, no tenderness to deep palpation no rebound appreciated Current inpatient own hospital workup: WBC: 13k INR: 1.0 Procalcitonin: 0.25 AB.20/83/109/32 on 10L AB.29/66/60/31 on BiPaP 15/5 FiO2 35% Bilateral lower extremity DVT study: No sonographic evidence of DVT CTA: Supple small 3rd order emboli involving the right and to a lesser extent left lung base, large invasive right lower lobe mass/cavitating, as well as thoracic spinal, additional scattered nodular densities of the ride hemithoracic cavity consistent with metastatic foci,, developing upper abdominal retro crucial adenopathy In-hospital Pulmonary Medications: 1. Prednisone 40 mg daily 2. Xopenex/Atrovent nebulizer 3. Prednisone 40 mg 4. Augmentin p.o. b.i.d. 5. Lovenox 70 mg b.i.d. 6. Guaifenesin 1.2 grams q.12 hours His physical exam on 02/17/2018 showed stable vital signs, large mass at the right chest wall area, S1-S2, distant breath sounds bilaterally, no wheezing, abdomen is benign, no edema. CAT scan of the chest was reviewed personally which showed multiple cavitary lesion with largest one already destructing the chest wall and penetrating through. Leukocytosis was noted. Assessment & Plan 1. Acute on chronic respiratory failure with hypercapnia secondary to mixed obstructive and restrictive lung physiology. 2. Resection of the chest wall is responsible for the restrictive pattern given the fact that this could be comparable to a flail chest physiology. 3. Squamous cell lung CA stage IIIb or IV given the invasion of the chest wall. 4. COPD. 5. Newly diagnosed multiple segments PE. Plan: 1. Obtain oncology consult. 2. Continue with anticoagulation. 3. Change the BiPAP to every night on a scheduled dose , 10 PM to 7 AM. 4. Continue with bronchodilators. 5. Continue with prednisone and Augmentin. 6. Consider palliative care consult. 8. The atelectasis of the right middle lobe is likely related to enlarged lymphadenopathy. The enlarged cavity in the right lower lobe is concerning for superimposed infection. With leukocytosis, I will continue with Augmentin, he may need to escalate antibiotic even further. Bronchoscopy would be helpful to determine if the patient has superimposed infection as well. However, based on other principles including Dr. Cesar, Dr. Marcus, Dr. Xie I will hold off on bronchoscopy at this point until I have my colleagues input. Thank you Data Medications: Current Inpatient Medications Medications (Trade) Dose Ordered Sig/Danae Route Start Time Stop Time Status Last Admin Dose Admin Acetaminophen (Tylenol Tab) 650 mg Q4H PRN PO 02/11/18 16:45 03/13/18 16:44 02/16/18 21:02 650 MG Al Hydrox/Mg Hydrox/Simethicone (Maalox Max Susp) 15 ml Q4H PRN PO 02/11/18 16:45 03/13/18 16:44 Magnesium Hydroxide (Milk Of Magnesia Susp) 30 ml Q12H PRN PO 02/11/18 16:45 03/13/18 16:44 Zolpidem Tartrate (Ambien Tab) 5 mg HSZ PRN PO 02/11/18 16:45 03/13/18 16:44 Ondansetron HCl (Zofran Inj) 4 mg Q6H PRN IV 02/11/18 16:45 03/13/18 16:44 02/12/18 20:37 4 MG Morphine Sulfate (MoRPHine SULFATE INJ) 2 mg Q30M PRN IV 02/11/18 16:45 02/25/18 16:44 02/17/18 14:23 2 MG Polyethylene (Miralax Powder Packet) 17 gm DAILY PRN PO 02/11/18 17:00 03/13/18 16:59 Levalbuterol (Xopenex 0.63 Mg/ 3 Ml Neb) 0.63 mg Q2H PRN INH 02/13/18 10:00 03/15/18 09:59 02/13/18 11:32 0.63 MG Ipratropium [place] (Atrovent 0.02% 0.5MG/2.5ML Neb) 0.5 mg Q6R INH 02/13/18 15:00 03/15/18 14:59 02/17/18 13:43 0.5 MG Levalbuterol (Xopenex 1.25MG/ 0.5ML Neb) 1.25 mg Q6R INH 02/13/18 15:00 03/15/18 14:59 02/17/18 13:43 1.25 MG Guaifenesin (Mucinex Contr Rel Tab) 1,200 mg Q12 PO 02/15/18 21:00 03/17/18 20:59 02/17/18 07:50 1,200 MG Amoxicillin/ Clavulanate Potassium (Augmentin Tab) 875 mg BIDM PO 02/15/18 17:00 02/22/18 16:59 02/17/18 07:49 875 MG Prednisone (PredniSONE TAB) 40 mg QAM PO 02/16/18 08:00 03/18/18 07:59 02/17/18 07:50 40 MG Furosemide (Lasix Tab) 40 mg QAM PO 02/16/18 08:00 03/18/18 07:59 02/17/18 07:50 40 MG Rivaroxaban (Xarelto Tab) 15 mg BID PO 02/16/18 10:00 03/18/18 09:59 02/17/18 07:50 15 MG I & O: 24-Hour Column 02/18/18 08:00 Intake Total 100 ml Output Total 300 ml Balance -200 ml Vital Signs: Date Time Temp Pulse Resp B/P (MAP) Pulse Ox O2 Delivery O2 Flow Rate FiO2 02/17/18 14:57 36.5 84 22 100/60 (73) 93 Nasal Cannula 3.0 02/17/18 13:43 80 16 93 Nasal Cannula 4.0 02/17/18 11:27 36.7 76 20 105/69 (81) 93 Nasal Cannula 4.0 Humidified Oxygen 02/17/18 11:25 Nasal Cannula 4.0 02/17/18 07:44 36.2 76 20 123/75 (91) 90 2.0 02/17/18 07:09 81 16 92 Nasal Cannula 4.0 02/17/18 03:51 36.4 74 20 112/76 (88) 95 Nasal Cannula 4.0 02/17/18 02:32 Nasal Cannula 4.0 02/17/18 02:23 88 14 96 Nasal Cannula 4.0 02/17/18 00:20 36.2 77 20 125/79 (94) 93 Nasal Cannula 4.0 02/16/18 19:45 36.7 83 20 114/75 (88) 96 Nasal Cannula 4.0 02/16/18 18:49 74 16 96 Nasal Cannula 5.0 Laboratory Results: Last 24 Hours Test 02/17/18 06:04 Sodium Level 137 mmol/L Potassium Level 4.3 mmol/L Chloride Level 98 mmol/L Carbon Dioxide Level 36 mmol/L Anion Gap 3.0 mmol/L Blood Urea Nitrogen 15 mg/dl Creatinine 0.69 mg/dl Est Creatinine Clear Calc Drug Dose 97.7 ml/min Estimated GFR () 112.3 Estimated GFR (Non- 96.9 BUN/Creatinine Ratio 21.5 Random Glucose 63 mg/dl Calcium Level 9.8 mg/dl
--- NOTE | 2018-02-17 19:55 | Progress Note ---
Subjective Date of Service: Feb 17, 2018. Subjective Pt evaluation today including: conversation w/ patient, conversation w/ family ( by phone), physical exam, chart review, lab review, conversation w/ alliances consultant (palliative care), review of inpatient medication list Pain: back PO Intake: fair Voiding: no voiding problems feels "a little better" today still with cough & sputum but that, too, is modestly better again anxious to go home no new complaints otherwise Problem List Medical Problems: (1) Metastatic squamous cell carcinoma Status: Acute (2) Pulmonary embolism Status: Acute Review of Systems Constitutional: No fever Respiratory: + dyspnea on exertion, No dyspnea at rest, No hemoptysis Cardiac: No chest pain Abdomen: No pain Musculoskeletal: + see HPI (back pain ) Objective Vital Signs Date Time Temp Pulse Resp B/P (MAP) Pulse Ox O2 Delivery O2 Flow Rate FiO2 02/17/18 19:32 36.4 88 18 104/68 (80) 93 Nasal Cannula 4.0 02/17/18 18:52 83 16 93 Nasal Cannula 4.0 02/17/18 16:00 Nasal Cannula 4.0 02/17/18 14:57 36.5 84 22 100/60 (73) 93 Nasal Cannula 3.0 02/17/18 13:43 80 16 93 Nasal Cannula 4.0 02/17/18 11:27 36.7 76 20 105/69 (81) 93 Nasal Cannula 4.0 Humidified Oxygen 02/17/18 11:25 Nasal Cannula 4.0 02/17/18 07:44 36.2 76 20 123/75 (91) 90 2.0 02/17/18 07:09 81 16 92 Nasal Cannula 4.0 02/17/18 03:51 36.4 74 20 112/76 (88) 95 Nasal Cannula 4.0 02/17/18 02:32 Nasal Cannula 4.0 02/17/18 02:23 88 14 96 Nasal Cannula 4.0 02/17/18 00:20 36.2 77 20 125/79 (94) 93 Nasal Cannula 4.0 Physical Exam General Appearance: no apparent distress, + pertinent finding (looks better today) ENT: pharynx normal Neck: no JVD Respiratory/Chest: no respiratory distress, no accessory muscle use, + pertinent finding (lungs sound better today; dense rales RLL; mild wheeze b/l; rhonchi improved today) Cardiovascular: regular rate, rhythm, no gallop, no murmur Abdomen: normal bowel sounds, non tender, soft, no organomegaly Extremities: + pedal edema (1+ b/l ) Neurologic/Psychiatric: alert, normal mood/affect, oriented x 3 Skin: + pertinent finding (stasis changes b/l ) Laboratory Results Last 24 Hours Test 02/17/18 06:04 Sodium Level 137 mmol/L Potassium Level 4.3 mmol/L Chloride Level 98 mmol/L Carbon Dioxide Level 36 mmol/L Anion Gap 3.0 mmol/L Blood Urea Nitrogen 15 mg/dl Creatinine 0.69 mg/dl Est Creatinine Clear Calc Drug Dose 97.7 ml/min Estimated GFR () 112.3 Estimated GFR (Non- 96.9 BUN/Creatinine Ratio 21.5 Random Glucose 63 mg/dl Calcium Level 9.8 mg/dl Assessment and Plan 67 y/o M Hx advanced COPD with chronic hypoxic respiratory failure on home O2, recent diagnosis of right lung squamous cell CA, ?? ARVIN infection, CAD, PVD, and long-standing tobacco dependence - 1. Acute on chronic respiratory failure with Hypoxia - multifactorial, secondary to COPD exacerbation, extensive squamous cell lung CA, and multiple small PEs. Most recent cxr/CT chest with progressive pneumonic infiltrates, RML collapse/atelectasis, and worsening cancer. See below. 2. COPD with exacerbation - improved. Cont steroids/abx/flutter valve/mucinex/ nebs/supportive care. Appreciate pulmonary consult & recs. Agree that bronch may be needed depending on how aggressive patient wishes to be. 3. right-sided post-obstructive pneumonia and probable LLL pneumonia - continue augmentin. Would Rx for 10 days. Consider adding better gram negative coverage in light of worsening cxr/CT chest. 4. hypercalcemia - 2nd to #6 - s/p Pamidronate 60mg IV x 1 02/15/18. total calcium normal today. BMP am. 5. chronic diastolic CHF - lasix 40mg daily. Compensated. 6. Squamous Cell CA Lung - at least stage 3A with invasion into vertebral body , with pulm nodules/local spread; stage 4 possible - adrenal mets? agree with formal heme/onc consult to assess options for Rx and guage patient's interest in Rx poor prognosis his COPD is quite severe which may limit Rx options 7. hyperkalemia - resolved. 8. b/l PEs - these were discovered in the setting of chronic warfarin therapy. Cont xarelto 15mg BID x 21 days then 20mg daily thereafter. 9. CAD - no ischemic symptoms at this time. Cont asa. 10. tobacco dependence - encouraged to quit. 11. ?ARVIN infection - pulmonary not recommending Rx at this time. All ARVIN meds discontinued. 12. DVT proph - xarelto 13. back pain - due to mets. Add norco prn. PT OT morales requested to determine if he is safe to return home; both recommended return home updated by phone appreciate palliative care consultation & recs Continued [facility] stay due to: multiple IV medications needed Discharge planning: home with home health
[2018-02-17] MEDS ORDERED: HYDROCODONE/ACETAMIN 5/325MG TAB PO PRN (20:00)
[2018-02-18] VITALS (13 sets, daily range): BP systolic 94–105; BP diastolic 56–69; PULSE 79–97; TEMP 36.3–36.8; O2SAT 85–100; BMI 23.9
[2018-02-18] MEDS: IPRATROPIUM BROMIDE NEB SOLN 0.02% 2.5 ML VIAL INH SCH ×4 (01:44→18:50)
[2018-02-18] MEDS: LEVALBUTEROL 1.25MG/0.5ML NEB INH SCH ×4 (01:44→18:50)
[2018-02-18 06:37] LABS: HEMATOCRIT 38.8 % (42-52); HEMOGLOBIN 11.3 g/dL (14.0-18.0); MEAN CELL VOLUME 80.7 fL (80-100); MEAN CORPUSCULAR HEMOGLOBIN 23.5 pg (25-34); MEAN CORPUSCULAR HGB CONC 29.1 g/dl (32-36); MEAN PLATELET VOLUME 9.7 fL (7.4-10.4); PLATELET COUNT 248 K/uL (130-400); RED CELL DISTRIBUTION WIDTH CV 16.3 % (11.5-14.5); RED CELL DISTRIBUTION WIDTH SD 48.4 fL (36.4-46.3); WHITE BLOOD COUNT 16.84 K/uL (4.8-10.8)
[2018-02-18 06:48] LABS: CALCIUM 9.1 mg/dl (8.5-10.1); CREATININE 0.84 mg/dl (0.60-1.40); POTASSIUM 4.2 mmol/L (3.5-5.1)
[2018-02-18] MEDS: AMOXICILLIN/CLAVULANATE TAB 875 MG TAB PO SCH ×2 (08:48→18:12)
[2018-02-18] MEDS: GUAIFENESIN 600 MG TABCR PO SCH ×2 (08:49→20:04)
[2018-02-18] MEDS: RIVAROXABAN TAB 15 MG TAB PO SCH ×2 (08:49→20:04)
[2018-02-18] MEDS: FUROSEMIDE 40 MG TAB PO SCH (08:49)
[2018-02-18] MEDS: MoRPHine SULFATE 2 MG/ML CARP IV PRN ×3 (08:58→21:05)
--- NOTE | 2018-02-18 09:19 | ONCOLOGY CONSULTATION ---
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 HISTORY OF PRESENT ILLNESS: Brendan is a pleasant but somewhat unfortunate 67-year-old gentleman who was admitted to [facility] on 02/11/2018 with subacute onset back pain, brought on by coughing. Patient explains that about a week prior to admission, he had developed a coughing spell and after a relatively large cough developed a midline back pain which persisted for several days leading up to admission. Brendan had informed his pain was not improving which prompted him to see his family physician, which in turn turned into a vast diagnostic workup. Brendan also reports occasional shortness of breath and hemoptysis. When he presented to the Emergency Room, initial oxygen saturation was in the low 80s while he was on 3 liters of nasal cannula. CTA of the chest confirmed several small pulmonary emboli involving the right and to a lesser extent into the left lung base. A large cavitary right lower lobe mass measuring in excess of [address] scan of the abdomen and pelvis reveals an adrenal nodule. Thus, it is unclear whether he actually suffers from metastatic disease, however, the large cavitary lesion involving the right lower lobe does appear to be eroding into the chest wall. The patient was seen by pulmonary, biopsy was carried out confirming a squamous cell carcinoma. Primary service is requesting guidance regarding salvage treatment moving forward. PAST MEDICAL HISTORY: Significant for oxygen-dependent COPD, coronary artery disease, probable metastatic lung cancer, PVD, STEVE, history of pulmonary embolisms dating back to 1989. PAST SURGICAL HISTORY: Status post fem-pop bypass and amputation of toe. MEDICATIONS: Prior to admission, Ventolin 2 puffs inhaled q. 6 hours, aspirin 81 mg p.o. daily, azithromycin 250 mg p.o. daily, ethambutol 1000 mg p.o. daily, furosemide 40 mg p.o. daily, he was on home oxygen, ranging from 2-4 liters, Singulair 10 mg p.o. daily, rifampin 300 mg p.o. b.i.d. and Ellipta 62.5/25 mcg 1 puff inhaled q.a.m., warfarin 10 mg p.o. daily. ALLERGIES: No known drug allergies. 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 Negative for alcohol. He is with grown children and grandchildren. FAMILY HISTORY: Patient is unclear thought his father succumbed to prostate cancer but also admits to a family history of coronary artery disease. REVIEW OF SYSTEMS: GENERAL: Most notably for generalized weakness, fatigue, anorexia and mild weight loss. SKIN: No rashes or lesions. HEENT: He denies headaches, lightheadedness or dizziness. No visual or hearing deficits. No sinus symptoms, sore throat or dysphagia. LYMPH: No history of lymphoproliferative disease. CARDIAC: No history of coronary artery disease, no angina or palpitations. PULMONARY: Positive for oxygen-dependent COPD, positive for semi-productive cough. Positive for hemoptysis. GASTROINTESTINAL: Negative for abdominal pain, nausea, vomiting, diarrhea or constipation, hematochezia or melanotic stools. GENITOURINARY: No history of prostate disease. No hematuria, dysuria, urinary incontinence. PSYCHIATRIC: Negative for anxiety, depression or psychoses. ENDOCRINE: Negative for diabetes or thyroid disease. NEUROLOGIC: Negative for seizure, stroke, or migraine headache. MUSCULOSKELETAL: Negative for arthralgias or myalgias. No muscle weakness. HEMATOLOGIC: Positive for normocytic normochromic anemia and a leukocytosis (neutrophilia). PHYSICAL EXAMINATION: GENERAL: Cachectic-appearing 67-year-old gentleman, appears much older than his stated age, in no acute distress. VITAL SIGNS: Temperature 36.3, pulse 87, respiratory rate 20, blood pressure 105/69. SKIN: Warm, dry, noncyanotic without petechia, rash or ecchymosis. Stasis dermatitis changes in his lower extremities: Specifically tibial shaft down to his foot. HEENT: Atraumatic, normocephalic. Eyes: PERRLA, EOMI. Sclerae nonicteric. Nares patent without rhinorrhea or discharge. Throat clear. Tongue midline. Dentition in poor repair. NECK: Supple without JVD or thyromegaly. LYMPH: No cervical, supraclavicular or axillary palpable nodes. HEART: Regular rate and rhythm. No clicks, rubs, murmurs or gallops. LUNGS: Rales and rhonchi heard diffusely, poor air entry. ABDOMEN: Soft, nontender, nondistended, without palpable hepatosplenomegaly. EXTREMITIES: No calf tenderness or swelling. No clubbing, cyanosis or edema, again stasis dermatitis changes seen in the lower extremities bilaterally. MUSCULOSKELETAL: Strength and pulses are equal in 4 quadrants. NEUROLOGICALLY: Patient is awake, alert, and oriented x3. Cranial nerves are intact. No gross motor or sensory deficits. LABORATORY DATA: WBC count 16,840, hemoglobin 11.3, platelet count 248,000. Sodium 135, potassium 4.2, chloride 99, carbon dioxide 35, creatinine 0.84, BUN 20. IMPRESSION: 1. Probable metastatic squamous cell carcinoma of the lung, bony erosion in the chest wall noted. 2. Hemoptysis. 3. Oxygen-dependent chronic obstructive pulmonary disease. 4. Pulmonary embolism. PLAN: I had the pleasure of meeting with Brendan this morning at bedside. Reviewed CT reports as well as recent clinical notes prior to this morning's consultation. Radiographically, there is some ambiguity, particularly adrenal nodule was seen, but indeterminant. Additionally, there appears to be erosion into the chest wall involving the main large cavitary lesion seen in the right lower lobe. This gentleman has a marginal performance status. He is oxygen dependent; however, is able to perform most activities of daily living. I briefly touched upon the possibility of salvage chemotherapy, possibly palliative radiation therapy to the dominant lung lesion. His prognosis in light of his comorbid status is relatively poor. I am amenable to reconvening as an outpatient, but informed Mr. Hopson the goal of any therapy moving forward, is to extend his life while maintaining some semblance of quality. We will await biomarkers, which I believe are pending at this time. I have asked Mr. Hopson to undergo PET scan as outpatient and would appreciate if the primary service would order the study prior to discharge. I would also ask he be scheduled to see me in the office next week as to establish a therapeutic approach moving forward. I have nothing further to add at this time. If there are questions or concerns, feel free to contact me at any time. IVELISSE
--- NOTE | 2018-02-18 14:04 | Palliative Care Progress Note ---
Palliative Care Progress Note Date of Service Feb 18, 2018. Subjective Pt evaluation today including: conversation w/ patient, conversation w/ family (, aFvian Hopson), physical exam, chart review, conversation w/ coding consultant (Dr. Cesar) Pain: 0/10 PO Intake: tolerating diet Received phone call from patient's , Favian, who was very upset. She stated, "I'm very upset about the care he's getting here. If I have to take him to [facility] myself I will." Dr. Cesar and I went to patient's room and talked for 60 minutes with patient and , Favian. Situation deescalated. All questions/ concerns answered. Talked about plan of care, goals of care, chemo/radiation. Patient has no pain at this time. Does still have some SOB on exertion but overall actually is much better than last week. Patient sitting up in chair on nasal cannula in no distress. was also very upset about a blister on top of patient's right foot. Dr. Cesar addressed this and we will have wound nurse come see her. Review of Systems Constitutional: No weakness ENT: No trouble swallowing Respiratory: + dyspnea on exertion, No cough, No shortness of breath Cardiac: + edema, No chest pain Abdomen: No pain, No nausea, No vomiting Male : No problem reported Psychiatric: No depression symptoms, No anxiety Objective Vital Signs Date Time Temp Pulse Resp B/P (MAP) Pulse Ox O2 Delivery O2 Flow Rate FiO2 02/18/18 11:26 36.6 79 20 99/66 (77) 96 Nasal Cannula 5.0 02/18/18 08:00 90 Nasal Cannula 5.0 50 02/18/18 07:53 97 16 90 Nasal Cannula 5.0 02/18/18 07:30 36.3 87 20 105/69 (81) 85 BiPAP 4.0 02/18/18 04:25 100/65 (77) 87 CPAP 4.0 02/18/18 04:25 36.4 84 20 97/63 (74) 88 CPAP 4.0 02/18/18 01:45 80 16 93 BiPAP/CPAP 4.0 02/18/18 00:00 92 Nasal Cannula 4.0 50 02/17/18 22:26 36.0 86 20 111/74 (86) 91 Nasal Cannula 4.0 02/17/18 22:14 91 92 4.0 02/17/18 19:32 36.4 88 18 104/68 (80) 93 Nasal Cannula 4.0 02/17/18 18:52 83 16 93 Nasal Cannula 4.0 02/17/18 16:00 Nasal Cannula 4.0 02/17/18 14:57 36.5 84 22 100/60 (73) 93 Nasal Cannula 3.0 02/17/18 13:43 80 16 93 Nasal Cannula 4.0 Physical Exam General Appearance: no apparent distress ENT: hearing grossly normal Neck: supple, no JVD Respiratory/Chest: no respiratory distress, no accessory muscle use, + decreased breath sounds (bilateral bases), + pertinent finding (protruding tumor on right postior/upper chest wall) Cardiovascular: regular rate, rhythm, + normal peripheral pulses (radial and postibial pulses), + pertinent finding (+ 2-3 pitting edema to bilateral feet) Abdomen: normal bowel sounds, non tender, soft Neurologic/Psychiatric: alert, oriented x 3, + pertinent finding (somewhat flattened affect) Skin: + pertinent finding (brownish discoloration of bilateral lower extremities) Laboratory Results Last 24 Hours Test 02/18/18 05:59 White Blood Count 16.84 K/uL Red Blood Count 4.81 M/uL Hemoglobin 11.3 g/dL Hematocrit 38.8 % Mean Corpuscular Volume 80.7 fL Mean Corpuscular Hemoglobin 23.5 pg Mean Corpuscular Hemoglobin Concent 29.1 g/dl RDW Standard Deviation 48.4 fL RDW Coefficient of Variation 16.3 % Platelet Count 248 K/uL Mean Platelet Volume 9.7 fL Sodium Level 135 mmol/L Potassium Level 4.2 mmol/L Chloride Level 99 mmol/L Carbon Dioxide Level 35 mmol/L Anion Gap 1.0 mmol/L Blood Urea Nitrogen 20 mg/dl Creatinine 0.84 mg/dl Est Creatinine Clear Calc Drug Dose 80.3 ml/min Estimated GFR () 103.5 Estimated GFR (Non- 89.3 BUN/Creatinine Ratio 24.0 Random Glucose 82 mg/dl Calcium Level 9.1 mg/dl Assessment and Plan Problem list: SOB/LEAL Respiratory failure with hypoxia with hx severe COPD Squamous cell lung cancer Bilateral PE ARVIN infection Goals of care Palliative care recs: -Radiation/oncology to see patient today. -Pulmonology following-- managing Bipap at night. Uncertain if this is just while in hospital or if he will continue this at home. Patient states he did not tolerate bipap well. -Lengthy discussion about goals of care with Dr. Cesar, patient, and Favian. Patient does want to pursue further treatment as far as radiation and oncology. We discussed other options of care including hospice care-- patient is not ready for hospice yet. He is anxious to get home but is also understanding of the reasons he is still in hospital. His verbalized understanding as well. -Patient's goal is to get home with his . He will likely need home health. -Further plan of care pending. Thanks again for this consult. I will follow as needed. Total time spent 70 minutes with >50% of time spent at bedside with patient/ family counseling and discussing goals/plan of care. Palliative Performance Scale: 40 % Continued [facility] stay due to: multiple IV medications needed Discharge planning: home with home health
--- NOTE | 2018-02-18 15:56 | Radiation Oncology Consult ---
Radiation Oncology Consult Date / Reason Feb 18, 2018. Physicians Radiation Oncologist: Dr. Lakia Kirby Diagnosis (1) Metastatic squamous cell carcinoma Additional Notes: Patient with metastatic disease, lesions have increased on CT scan over the past 5 days. Dyspnea improved since admission History of Present Illness I am seeing Mr. Hopson in consultation at the request of Dr. Melara. The patient's was also present during the consultation. ECOG PS: 2 Mr. Hopson is a 67-year-old gentleman with a strong smoking history who presented with a 60 pound weight loss as well as increasing shortness of breath and back pain. He self-referred himself for care and was seen by pulmonology as well. 12/06/2017 --- CT of chest --- suspicious cavitary lesion in the posterior right lower lobe with a smaller cavitary lesion more caudal to this in the right lower lobe. Additionally there is a subpleural or pleural-based nodule in the right middle lobe, all detailed above. While infection could give this appearance, neoplasm should be considered a diagnosis of exclusion due to the severe right chest wall invasion and near complete osseous destruction of the posterior right seventh through ninth ribs as above. 12/31/2017 --- bronchoscopy with biopsy of right lower lobe bronchus with bronchial washings, biopsy of station 4 and 7 --- atypical epithelial cells, cannot rule out squamous cell carcinoma. 01/30/2018 --- CT-guided biopsy of chest wall mass --- squamous cell carcinoma. PDL-1 markers pending. 02/12/2018 --- MRI brain --- IMPRESSION: No acute intracranial abnormality. Specifically, there is no evidence of intracranial metastatic disease. 02/12/2018 --- CT of abdomen/pelvis --- IMPRESSION: 1. No CT evidence of hepatic metastasis 2. 18 mm left adrenal nodule 3. Indeterminate 13 mm lytic focus within the left iliac bone 4. No evidence of pathologic adenopathy by size criteria 6. Left-sided nephrolithiasis 7. Large renal cysts 02/16/2018 --- CT of chest --- IMPRESSION: 1. Mildly progressive disease of the mid to lower aspects of the chest bilaterally. 2. Large destructive lesion with central necrosis shows a slight increase in volume. 3. Interval development of right middle lobe atelectatic change with probable developing nodularity and or adenopathy of the right hilum. 4. Moderately progressive basilar pulmonary nodularity bilaterally with interval small bilateral pleural effusions. 5. The overall appearance is suggestive of progressive disease with postobstructive atelectasis of the right middle lobe. 02/18/2018 --- medical oncology consultation by Dr. Brayan Connor --- Dr. Connor recommends completion of staging workup in the outpatient setting including a PET/CT. He also recommended palliative external beam radiation therapy with consideration of systemic chemotherapy in the outpatient setting. We are now seeing the patient in consultation to discuss the role of radiation therapy. In general, the patient feels fairly weak. He also describes that he is having some difficulty with shortness of breath. He also notes discomfort in his right back with some pain. Past History Past Medical/Surgical History: Asthma, Pulmonary Emboli, Cancer, Heart Disease , COPD Social History Smoking Status: Current Every Day Smoker Hx Tobacco Use In Past Year?: Yes (10 cigarettes) Quit Date: Feb 10, 2018 Do You Dip or Chew Tobacco: No Hx Alcohol Use: No Hx Substance Use : No Allergies Coded Allergies: No Known Allergies (Unverified , 02/11/18) Home Medications Scheduled Albuterol Hfa (Ventolin Hfa), 2 PUFFS INH Q6H Aspirin (Aspirin Ec), 81 MG PO DAILY Azithromycin (Zithromax), 250 MG PO DAILY Ethambutol Hcl (Ethambutol Hcl), 1,000 MG PO DAILY Furosemide (Lasix), 40 MG PO QAM Home O2 Therapy (Oxygen), 2 LITERS NA DAILY Home O2 Therapy (Oxygen), 4 LITERS NA HS Montelukast Sodium (Singulair), 10 MG PO QPM Rifampin (Rifadin), 300 MG PO BID Umeclidinium-Vilanterol (Anoro Ellipta 62.5-25 Mcg/INH), 1 PUFF INH QAM Warfarin Sod (Jantoven), 10 MG PO DAILY Review of Systems Ear/Hearing: Ear Side: Bilateral Hearing Ability: Normal Hearing Aid: None Edema: Present?: Yes Location Body Site Modifier: Bilateral Type: Pitting Degree: 2+ Physical Exam Height: 5 (Feet) 8.00 (Inches) 172.7 (Centimeters) 1.7272 (Meters) Weight: 156 (Pounds) 15.5 (Ounces) 71.200 (Kilograms) 93223.000 (Grams) Date Time Temp Pulse Resp B/P (MAP) Pulse Ox O2 Delivery O2 Flow Rate FiO2 02/18/18 14:59 36.7 88 20 94/61 (72) 100 Nasal Cannula 5.0 02/18/18 13:56 94 16 89 Nasal Cannula 5.0 02/18/18 11:26 36.6 79 20 99/66 (77) 96 Nasal Cannula 5.0 02/18/18 08:00 90 Nasal Cannula 5.0 50 02/18/18 07:53 97 16 90 Nasal Cannula 5.0 02/18/18 07:30 36.3 87 20 105/69 (81) 85 BiPAP 4.0 02/18/18 04:25 100/65 (77) 87 CPAP 4.0 02/18/18 04:25 36.4 84 20 97/63 (74) 88 CPAP 4.0 02/18/18 01:45 80 16 93 BiPAP/CPAP 4.0 02/18/18 00:00 92 Nasal Cannula 4.0 50 02/17/18 22:26 36.0 86 20 111/74 (86) 91 Nasal Cannula 4.0 02/17/18 22:14 91 92 4.0 02/17/18 19:32 36.4 88 18 104/68 (80) 93 Nasal Cannula 4.0 02/17/18 18:52 83 16 93 Nasal Cannula 4.0 02/17/18 16:00 Nasal Cannula 4.0 General Appearance: + mild distress, + cachetic Head: normocephalic Eyes: normal inspection ENT: normal ENT inspection Neck: supple, no adenopathy Respiratory/Chest: + decreased breath sounds, + accessory muscle use Cardiovascular: regular rate, rhythm, no edema, no gallop, no JVD, no murmur Abdomen/GI: normal bowel sounds Neurologic/Psych: 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 Laboratory Laboratory Results: were reviewed Pathology Pathology Results: were reviewed, and pertinent findings noted in HPI Imaging Imaging Studies: were reviewed, and pertinent findings noted in HPI Assessment & Recommendations Assessment: Mr. Hopson is a 67-year-old gentleman with likely metastatic squamous cell carcinoma of the right lung with very locally advanced disease involving the right posterior chest wall and extending to the right paraspinal space. The patient has been evaluated by Dr. Connor who is recommended outpatient staging PET/CT scan, consideration for systemic/immunotherapy in the outpatient setting and palliative external beam radiation therapy. We are now seeing the patient in consultation to discuss the role of palliative external beam radiation therapy. Recommendation: Palliative external beam radiation therapy in 10-15 fractions. Agree with medical oncology recommendations. Plan: 1. CT simulation for treatment planning scheduled for tomorrow. Initiate radiation therapy as soon as possible. 2. Follow-up with medical oncology in the outpatient setting. 3. Continue care as per primary medical team. 4. Patient and family encouraged to call us with any further questions or concerns. Rationale/Explanation of Treatment: We have explained the indications, alternatives, benefits, risks and side effects of radiation therapy to the lung. We have explained the most common side effects which include but are not limited to skin erythema, skin break down, pulmonary fibrosis, adhesion development, radiation pneumonitis, rib fracture, heart failure and heart disease, esophagitis, development of fistula, fatigue and development of secondary malignancy. We have explained the CT simulation process and treatment planning. We explained what to expect before, during and after treatment on a regular basis. The patient understands and would be willing to consent to treatment. The patient and family had multiple questions which were answered to their full satisfaction. Thank you for allowing us to participate in the care of this patient. This chart was completed in part utilizing [employer] Speech Voice Recognition software. Attempts were made to minimize the grammatical errors, random word insertions, pronoun errors and incomplete sentences. Any formal questions or concerns about the content, text or information contained within the body of this dictation should be directly addressed to the provider for clarification. Lakia Kirby MD Department of Radiation Oncology [facility] Total Time (Attending) I spent 30 minutes examining and counseling the patient. I spent 15 minutes completing this note. AMISHA
--- NOTE | 2018-02-18 20:19 | Pulmonology Progress Note ---
Pulmonary Progress Note Date of Service Feb 18, 2018. Attending Dr. Hein Subjective The patient has no new symptoms, denies any pain at the site, he continued to have cough, occasional blood-tinged sputum. Objective Patient was sitting up in a chair today and add able to have full conversations with minimal accessory muscle use. PmHx: Squamous cell carcinoma of the lung, Very severe COPD (FEV1: 27%) with significant reversible component, CAD (coronary artery disease), Chronic anticoagulation, CAD/CA, psoriasis, PVD, tobacco use disorder PsHx: Colonoscopy, S/P femoral-popliteal bypass surgery, to amputation, right inguinal hernia repair, transthoracic needle aspiration 01/20/2018, bronchoscopy /EBUS Vital signs: Stable on 5-6 liters nasal cannula Respiratory: Mild rhonchi and expiratory wheezing appreciated Cardiac: S1-S2 tachycardic irregular rhythm Abdomen: Positive bowel sounds but mildly distended, no tenderness to deep palpation no rebound appreciated Current inpatient own hospital workup: WBC: 13k INR: 1.0 Procalcitonin: 0.25 AB.20/83/109/32 on 10L AB.29/66/60/31 on BiPaP 15/5 FiO2 35% Bilateral lower extremity DVT study: No sonographic evidence of DVT CTA: Supple small 3rd order emboli involving the right and to a lesser extent left lung base, large invasive right lower lobe mass/cavitating, as well as thoracic spinal, additional scattered nodular densities of the ride hemithoracic cavity consistent with metastatic foci,, developing upper abdominal retro crucial adenopathy In-hospital Pulmonary Medications: 1. Prednisone 40 mg daily 2. Xopenex/Atrovent nebulizer 3. Prednisone 40 mg 4. Augmentin p.o. b.i.d. 5. Lovenox 70 mg b.i.d. 6. Guaifenesin 1.2 grams q.12 hours His physical exam on 02/17/2018 showed stable vital signs, large mass at the right chest wall area, S1-S2, distant breath sounds bilaterally, no wheezing, abdomen is benign, no edema. CAT scan of the chest was reviewed personally which showed multiple cavitary lesion with largest one already destructing the chest wall and penetrating through. Leukocytosis was noted. Physical exam on 02/18/2018 showed stable vital signs, large mass at the right chest wall, S1-S2, not tachycardic, distant breath sounds with no wheezing, edema in the periphery with venous stasis and poor circulation in the lower extremities. Right foot dermal bullae formation. Assessment & Plan 1. Acute on chronic respiratory failure with hypercapnia secondary to mixed obstructive and restrictive lung physiology. 2. Resection of the chest wall is responsible for the restrictive pattern given the fact that this could be comparable to a flail chest physiology. 3. Squamous cell lung CA stage IIIb or IV given the invasion of the chest wall. 4. COPD. 5. Newly diagnosed multiple segments PE. Plan: 1. Oncology consult appreciated, patient will be followed as an outpatient. 2. Continue with anticoagulation. 3. Change the BiPAP to every night on a scheduled dose , 10 PM to 7 AM. 4. Continue with bronchodilators. 5. Continue with prednisone and Augmentin. 6. Consider palliative care consult. 8. Prognosis is poor. Thank you Data Medications: Current Inpatient Medications Medications (Trade) Dose Ordered Sig/Danae Route Start Time Stop Time Status Last Admin Dose Admin Acetaminophen (Tylenol Tab) 650 mg Q4H PRN PO 02/11/18 16:45 03/13/18 16:44 02/16/18 21:02 650 MG Al Hydrox/Mg Hydrox/Simethicone (Maalox Max Susp) 15 ml Q4H PRN PO 02/11/18 16:45 03/13/18 16:44 Magnesium Hydroxide (Milk Of Magnesia Susp) 30 ml Q12H PRN PO 02/11/18 16:45 03/13/18 16:44 Zolpidem Tartrate (Ambien Tab) 5 mg HSZ PRN PO 02/11/18 16:45 03/13/18 16:44 Ondansetron HCl (Zofran Inj) 4 mg Q6H PRN IV 02/11/18 16:45 03/13/18 16:44 02/12/18 20:37 4 MG Morphine Sulfate (MoRPHine SULFATE INJ) 2 mg Q30M PRN IV 02/11/18 16:45 02/25/18 16:44 02/18/18 15:23 2 MG Polyethylene (Miralax Powder Packet) 17 gm DAILY PRN PO 02/11/18 17:00 03/13/18 16:59 Levalbuterol (Xopenex 0.63 Mg/ 3 Ml Neb) 0.63 mg Q2H PRN INH 8/2/18 10:00 03/15/18 09:59 02/13/18 11:32 0.63 MG Ipratropium [place] (Atrovent 0.02% 0.5MG/2.5ML Neb) 0.5 mg Q6R INH 02/13/18 15:00 03/15/18 14:59 02/18/18 18:50 0.5 MG Levalbuterol (Xopenex 1.25MG/ 0.5ML Neb) 1.25 mg Q6R INH 02/13/18 15:00 03/15/18 14:59 02/18/18 18:50 1.25 MG Guaifenesin (Mucinex Contr Rel Tab) 1,200 mg Q12 PO 02/15/18 21:00 03/17/18 20:59 02/18/18 20:04 1,200 MG Amoxicillin/ Clavulanate Potassium (Augmentin Tab) 875 mg BIDM PO 02/15/18 17:00 02/22/18 16:59 02/18/18 18:12 875 MG Prednisone (PredniSONE TAB) 40 mg QAM PO 02/16/18 08:00 03/18/18 07:59 02/18/18 08:49 40 MG Furosemide (Lasix Tab) 40 mg QAM PO 02/16/18 08:00 03/18/18 07:59 02/18/18 08:49 40 MG Rivaroxaban (Xarelto Tab) 15 mg BID PO 02/16/18 10:00 03/18/18 09:59 02/18/18 20:04 15 MG Acetaminophen/ Hydrocodone Bitart ([place] 5/325 Tab) 1 tab Q4H PRN PO 02/17/18 20:00 03/03/18 19:59 I & O: 24-Hour Column 02/19/18 08:00 Intake Total 60 ml Output Total 150 ml Balance -90 ml Vital Signs: Date Time Temp Pulse Resp B/P (MAP) Pulse Ox O2 Delivery O2 Flow Rate FiO2 02/18/18 18:50 89 16 90 Nasal Cannula 5.0 02/18/18 14:59 36.7 88 20 94/61 (72) 100 Nasal Cannula 5.0 02/18/18 13:56 94 16 89 Nasal Cannula 5.0 02/18/18 11:26 36.6 79 20 99/66 (77) 96 Nasal Cannula 5.0 02/18/18 08:00 90 Nasal Cannula 5.0 50 02/18/18 07:53 97 16 90 Nasal Cannula 5.0 02/18/18 07:30 36.3 87 20 105/69 (81) 85 BiPAP 4.0 02/18/18 04:25 100/65 (77) 87 CPAP 4.0 02/18/18 04:25 36.4 84 20 97/63 (74) 88 CPAP 4.0 02/18/18 01:45 80 16 93 BiPAP/CPAP 4.0 02/18/18 00:00 92 Nasal Cannula 4.0 50 02/17/18 22:26 36.0 86 20 111/74 (86) 91 Nasal Cannula 4.0 02/17/18 22:14 91 92 4.0 Laboratory Results: Last 24 Hours Test 02/18/18 05:59 White Blood Count 16.84 K/uL Red Blood Count 4.81 M/uL Hemoglobin 11.3 g/dL Hematocrit 38.8 % Mean Corpuscular Volume 80.7 fL Mean Corpuscular Hemoglobin 23.5 pg Mean Corpuscular Hemoglobin Concent 29.1 g/dl RDW Standard Deviation 48.4 fL RDW Coefficient of Variation 16.3 % Platelet Count 248 K/uL Mean Platelet Volume 9.7 fL Sodium Level 135 mmol/L Potassium Level 4.2 mmol/L Chloride Level 99 mmol/L Carbon Dioxide Level 35 mmol/L Anion Gap 1.0 mmol/L Blood Urea Nitrogen 20 mg/dl Creatinine 0.84 mg/dl Est Creatinine Clear Calc Drug Dose 80.3 ml/min Estimated GFR () 103.5 Estimated GFR (Non- 89.3 BUN/Creatinine Ratio 24.0 Random Glucose 82 mg/dl Calcium Level 9.1 mg/dl
[2018-02-19] VITALS (12 sets, daily range): BP systolic 80–99; BP diastolic 53–63; PULSE 71–94; TEMP 36.6–36.8; O2SAT 89–96; BMI 23.5
[2018-02-19] MEDS: MoRPHine SULFATE 2 MG/ML CARP IV PRN ×3 (00:16→15:07)
[2018-02-19] MEDS: LEVALBUTEROL 1.25MG/0.5ML NEB INH SCH ×4 (01:59→19:12)
[2018-02-19] MEDS: IPRATROPIUM BROMIDE NEB SOLN 0.02% 2.5 ML VIAL INH SCH ×4 (01:59→19:11)
[2018-02-19 07:00] LABS: CALCIUM 8.4 mg/dl (8.5-10.1); CREATININE 0.93 mg/dl (0.60-1.40); PHOSPHORUS 2.6 mg/dl (2.5-4.9); POTASSIUM 4.2 mmol/L (3.5-5.1)
[2018-02-19] MEDS: FUROSEMIDE 40 MG TAB PO SCH (07:42)
[2018-02-19] MEDS: GUAIFENESIN 600 MG TABCR PO SCH ×2 (07:42→20:28)
[2018-02-19] MEDS: AMOXICILLIN/CLAVULANATE TAB 875 MG TAB PO SCH ×2 (07:42→17:55)
[2018-02-19] MEDS: RIVAROXABAN TAB 15 MG TAB PO SCH ×2 (07:42→20:28)
[2018-02-19 07:46] LABS: MEAN CORPUSCULAR HEMOGLOBIN 23.8 pg (25-34); MEAN CORPUSCULAR HGB CONC 29.4 g/dl (32-36); MEAN PLATELET VOLUME 9.8 fL (7.4-10.4); PLATELET COUNT 226 K/uL (130-400); RED CELL DISTRIBUTION WIDTH CV 16.7 % (11.5-14.5); RED CELL DISTRIBUTION WIDTH SD 49.8 fL (36.4-46.3); WHITE BLOOD COUNT 15.61 K/uL (4.8-10.8)
--- NOTE | 2018-02-19 07:57 | Progress Note ---
Subjective Date of Service: Feb 18, 2018. Subjective Pt evaluation today including: conversation w/ patient, conversation w/ family ( at bedside), physical exam, chart review, lab review, conversation w/ sap consultant (oncology, rad onc, pulmonary, palliative care ), review of inpatient medication list Pain: mild back - intermittent PO Intake: fair Voiding: no voiding problems patient developed a blister on the dorsum of the right foot not painful mildly draining clear serous fluid feels a little better again with his breathing didn't tolerate the BIPAP overnight, however Problem List Medical Problems: (1) Metastatic squamous cell carcinoma Status: Acute (2) Pulmonary embolism Status: Acute Review of Systems Constitutional: No fever, No chills Respiratory: + cough, + sputum, + dyspnea on exertion Cardiac: No chest pain Abdomen: No pain Objective Vital Signs Date Time Temp Pulse Resp B/P (MAP) Pulse Ox O2 Delivery O2 Flow Rate FiO2 02/18/18 18:50 89 16 90 Nasal Cannula 5.0 02/18/18 14:59 36.7 88 20 94/61 (72) 100 Nasal Cannula 5.0 02/18/18 13:56 94 16 89 Nasal Cannula 5.0 02/18/18 11:26 36.6 79 20 99/66 (77) 96 Nasal Cannula 5.0 02/18/18 08:00 90 Nasal Cannula 5.0 50 02/18/18 07:53 97 16 90 Nasal Cannula 5.0 02/18/18 07:30 36.3 87 20 105/69 (81) 85 BiPAP 4.0 02/18/18 04:25 100/65 (77) 87 CPAP 4.0 02/18/18 04:25 36.4 84 20 97/63 (74) 88 CPAP 4.0 02/18/18 01:45 80 16 93 BiPAP/CPAP 4.0 02/18/18 00:00 92 Nasal Cannula 4.0 50 02/17/18 22:26 36.0 86 20 111/74 (86) 91 Nasal Cannula 4.0 02/17/18 22:14 91 92 4.0 Physical Exam General Appearance: no apparent distress ENT: pharynx normal Neck: no JVD Respiratory/Chest: no respiratory distress, no accessory muscle use, + crackles (right base ), + wheezing, + pertinent finding (mass protruding from right posterior hemithorax) Cardiovascular: regular rate, rhythm, no gallop, no murmur Abdomen: normal bowel sounds, non tender, soft, no organomegaly Extremities: + pedal edema, + swelling (2+ b/l ) Neurologic/Psychiatric: alert, oriented x 3, + depressed affect Skin: + pertinent finding (blister formation, dorsum right foot, about 3cm in size; no overlying cellulitis; stasis changes b/l legs) Laboratory Results Last 24 Hours Test 02/18/18 05:59 White Blood Count 16.84 K/uL Red Blood Count 4.81 M/uL Hemoglobin 11.3 g/dL Hematocrit 38.8 % Mean Corpuscular Volume 80.7 fL Mean Corpuscular Hemoglobin 23.5 pg Mean Corpuscular Hemoglobin Concent 29.1 g/dl RDW Standard Deviation 48.4 fL RDW Coefficient of Variation 16.3 % Platelet Count 248 K/uL Mean Platelet Volume 9.7 fL Sodium Level 135 mmol/L Potassium Level 4.2 mmol/L Chloride Level 99 mmol/L Carbon Dioxide Level 35 mmol/L Anion Gap 1.0 mmol/L Blood Urea Nitrogen 20 mg/dl Creatinine 0.84 mg/dl Est Creatinine Clear Calc Drug Dose 80.3 ml/min Estimated GFR () 103.5 Estimated GFR (Non- 89.3 BUN/Creatinine Ratio 24.0 Random Glucose 82 mg/dl Calcium Level 9.1 mg/dl Assessment and Plan 67 y/o M Hx advanced COPD with chronic hypoxic respiratory failure on home O2, recent diagnosis of right lung squamous cell CA, ?? ARVIN infection, CAD, PVD, and long-standing tobacco dependence - 1. Acute on chronic respiratory failure with Hypoxia - multifactorial, secondary to COPD exacerbation, extensive squamous cell lung CA, and multiple small PEs. Most recent cxr/CT chest with progressive pneumonic infiltrates, RML collapse/atelectasis due to adenopathy, and worsening cancer. See below. 2. COPD with exacerbation - improved. Cont steroids/abx/flutter valve/mucinex/ nebs/supportive care. Wean prednisone to 30mg in am. Appreciate pulmonary consult & recs. Deferring on bronch for now. 3. right-sided post-obstructive pneumonia and probable LLL pneumonia - continue augmentin. Would Rx for 10 days. Today is Day #8. Consider adding better gram negative coverage in light of worsening cxr/CT chest if patient clinically decompensates. 4. hypercalcemia - 2nd to #6 - s/p Pamidronate 60mg IV x 1 02/15/18. total calcium normal today. BMP am. 5. chronic diastolic CHF - lasix 40mg daily. Compensated. Could consider increasing lasix to draw more peripheral edema but would defer on that for now. 6. Squamous Cell CA Lung - stage 4 - I spoke with Dr. Connor and Dr. Kirby from onc and rad onc, respectively. Dr. Kirby to begin palliative radiation tomorrow on lung mass. Dr. Connor to see patient after d/c. 7. hyperkalemia - resolved. 8. b/l PEs - these were discovered in the setting of chronic warfarin therapy. Cont xarelto 15mg BID x 21 days then 20mg daily thereafter. 9. CAD - no ischemic symptoms at this time. Cont asa. 10. tobacco dependence - encouraged to quit. 11. ?ARVIN infection - pulmonary not recommending Rx at this time. All ARVIN meds discontinued. 12. DVT proph - xarelto 13. back pain - due to mets. norco prn. LENGTHY discussion held with pt and his at bedside. Marie from palliative care was also present for this discussion. We discussed the current problems and tried to understand what his goals for his care were. At this time he does NOT wish to pursue hospice. He wishes to try and treat his cancer. He is hopeful he can ultimately be well enough to pursue the chemo. is drawing on past experiences with other family members who experienced slow declines and, in some circumstances, a poor dying experience. She is concerned this will happen to her . We reassured his that the care team is "all on the same page". They also voiced that they feel that his care has been too slow --- I reassured them that given the extent of his illness, his ICU stay, etc -- that this is not the case. After the 30 min discussion the plan moving forward was for him to remain hospitalized, obtain wound care consult for the blister on right foot, and likely initiate palliative radiation tomorrow. Pt and seemed pleased with this plan. I appreciate palliative care consultation and assistance. Continued [facility] stay due to: multiple IV medications needed, other (need for radiation ) Discharge planning: home with home health
--- NOTE | 2018-02-19 08:19 | HEME/ONC PROGRESS NOTE ---
DATE: 02/19/2018 DATE: 02/19/2018 DIAGNOSES: 1. Metastatic squamous cell carcinoma of the lung. 2. Hemoptysis. 3. Oxygen dependent chronic obstructive pulmonary disease. 4. Pulmonary embolism. SUBJECTIVE: Brendan was seen and examined at bedside this morning. He will head down for an initial course of radiation therapy today. Appreciate radiation oncology's input. Brendan seems to be doing reasonably well, offers no specific complaints. He is ambulating ad sushant and tolerating his diet. He offers no complaints this morning. OBJECTIVE: GENERAL: He is in no acute distress. VITAL SIGNS: Current temperature is 36.7, pulse 90, respiratory rate 18, blood pressure 99/62. SKIN: Without rash or lesion. HEENT: Oral mucosa is dry, otherwise no buccal lesions or ulcerations. NECK: Supple. HEART: Regular rate and rhythm. LUNGS: Scattered rhonchi heard in all browning. Air entry is marginal. ABDOMEN: Soft, nontender, nondistended. EXTREMITIES: Stasis dermatitis changes, otherwise no clubbing, cyanosis, or edema. NEUROLOGIC: Grossly intact. LABORATORY DATA: WBC count 15,610, hemoglobin 10, platelet count 226,000. Sodium 136, potassium 4.2, chloride 98, carbon dioxide 34, creatinine 0.93, BUN 25. IMPRESSION: 1. Metastatic squamous cell carcinoma of the lung. 2. Oxygen dependent chronic obstructive pulmonary disease. 3. Pulmonary embolism. PLAN: Moving forward, post discharge, he is to [facility] to discuss salvage chemotherapy. Await biomarkers to determine appropriate chemotherapeutics. Agree with Dr. Kirby's assessment to palliatively treat the dominant right lower lobe lesion. Medically overall Brendan seems to be doing relatively well. He is currently anticoagulated and could be converted to oral direct thrombin inhibition versus Coumadin. I have nothing further to add and will officially sign off this morning. Thank you for allowing me to participate in the care of this very pleasant 67-year-old gentleman.
--- NOTE | 2018-02-19 17:39 | Progress Note ---
Subjective Date of Service: Feb 19, 2018. Subjective Pt evaluation today including: conversation w/ patient, physical exam, chart review, lab review, conversation w/ client support consultant (pulmonary) Pain: none reported PO Intake: improving Voiding: no voiding problems pt overall feels better from a breathing standpoint he did use the BIPAP for 5 hours last pm; it went better than the night prior no new issues he is receiving his first radiation treatment today this afternoon Problem List Medical Problems: (1) Metastatic squamous cell carcinoma Status: Acute (2) Pulmonary embolism Status: Acute Review of Systems Constitutional: No fever Respiratory: + cough, + dyspnea on exertion, No dyspnea at rest, No hemoptysis Cardiac: + edema, No chest pain Abdomen: No pain, No diarrhea, No constipation Objective Vital Signs Date Time Temp Pulse Resp B/P (MAP) Pulse Ox O2 Delivery O2 Flow Rate FiO2 02/19/18 15:28 36.8 86 18 93/59 (70) 96 Nasal Cannula 5.0 02/19/18 14:15 71 16 93 Nasal Cannula 5.0 02/19/18 11:46 36.8 88 20 92/58 (69) 92 02/19/18 08:00 93 Nasal Cannula 5.0 02/19/18 07:28 77 16 93 Nasal Cannula 5.0 02/19/18 07:17 36.7 90 18 99/62 (74) 94 02/19/18 04:22 36.6 82 20 98/63 (75) 92 Nasal Cannula 4.0 02/19/18 01:59 94 16 89 BiPAP/CPAP 5.0 02/19/18 00:00 92 Nasal Cannula 5.0 50 BiPAP 02/18/18 23:32 89 93 4.0 02/18/18 23:12 36.4 79 20 100/67 (78) 91 Nasal Cannula 5.0 Humidified Oxygen 02/18/18 20:17 36.8 88 22 94/56 (69) 94 Nasal Cannula 5.0 02/18/18 20:00 Nasal Cannula 5.0 02/18/18 18:50 89 16 90 Nasal Cannula 5.0 Physical Exam General Appearance: no apparent distress ENT: pharynx normal Neck: no JVD Respiratory/Chest: no respiratory distress, no accessory muscle use, + decreased breath sounds (bases worse on right), + wheezing, + pertinent finding (large mass protruding from right posterior hemithorax) Cardiovascular: regular rate, rhythm, no gallop, no murmur Abdomen: normal bowel sounds, non tender, soft, no organomegaly Extremities: + pedal edema (2+ b/l -- no change) Neurologic/Psychiatric: alert, oriented x 3 Skin: + pertinent finding (blister, right foot dorsum - has resolved; optifoam in place; stasis changes b/l legs ) Laboratory Results Last 24 Hours Test 02/19/18 05:59 White Blood Count 15.61 K/uL Red Blood Count 4.20 M/uL Hemoglobin 10.0 g/dL Hematocrit 34.0 % Mean Corpuscular Volume 81.0 fL Mean Corpuscular Hemoglobin 23.8 pg Mean Corpuscular Hemoglobin Concent 29.4 g/dl RDW Standard Deviation 49.8 fL RDW Coefficient of Variation 16.7 % Platelet Count 226 K/uL Mean Platelet Volume 9.8 fL Sodium Level 136 mmol/L Potassium Level 4.2 mmol/L Chloride Level 98 mmol/L Carbon Dioxide Level 34 mmol/L Anion Gap 4.0 mmol/L Blood Urea Nitrogen 25 mg/dl Creatinine 0.93 mg/dl Est Creatinine Clear Calc Drug Dose 72.5 ml/min Estimated GFR () 96.7 Estimated GFR (Non- 83.5 BUN/Creatinine Ratio 26.5 Random Glucose 84 mg/dl Calcium Level 8.4 mg/dl Phosphorus Level 2.6 mg/dl Magnesium Level 2.2 mg/dl Assessment and Plan 67 y/o M Hx advanced COPD with chronic hypoxic respiratory failure on home O2, recent diagnosis of right lung squamous cell CA, ?? ARVIN infection, CAD, PVD, and long-standing tobacco dependence - 1. Acute on chronic respiratory failure with Hypoxia - multifactorial, secondary to COPD exacerbation, extensive squamous cell lung CA, and multiple small PEs. Most recent cxr/CT chest with progressive pneumonic infiltrates, RML collapse/atelectasis due to adenopathy, and worsening cancer. His acute issues have improved since the weekend fortunately. 2. COPD with exacerbation - improved. Cont steroids/abx/flutter valve/mucinex/ nebs/supportive care. Wean prednisone to 30mg today. Wean every 3 days. Appreciate pulmonary consult & recs. Deferring on bronch for now. 3. right-sided post-obstructive pneumonia and probable LLL pneumonia - continue augmentin. Would Rx for 10 days. Today is Day #9. Consider adding better gram negative coverage in light of worsening cxr/CT chest if patient clinically decompensates. 4. hypercalcemia - 2nd to #6 - s/p Pamidronate 60mg IV x 1 02/15/18. Resolved. BMP am. 5. chronic diastolic CHF - lasix 40mg daily. Compensated. Could consider increasing lasix to draw more peripheral edema but would defer on that for now given his mild rise in BUN and Cr. 6. Squamous Cell CA Lung - stage 4 - To have radiation treatment #1 today. Overall poor prognosis. To see Dr. Connor as outpatient to discuss available palliative chemo options. 7. hyperkalemia - resolved. 8. b/l PEs - these were discovered in the setting of chronic warfarin therapy. Cont xarelto 15mg BID x 21 days then 20mg daily thereafter. Today is day #4 of xarelto. 9. CAD - no ischemic symptoms at this time. Cont asa. 10. tobacco dependence - encouraged to quit. 11. ?ARVIN infection - pulmonary not recommending Rx at this time. All ARVIN meds discontinued. 12. DVT proph - xarelto 13. back pain - due to mets. norco prn. I spoke with Dr. Hein who recommends the BIPAP at HS at home to qualify him will order nocturnal overnight oximetry study and then AM abg NO BIPAP tonight ok to use NC O2 through the night, however update later today hopefully home tomorrow Continued [facility] stay due to: multiple IV medications needed, other (need for radiation ) Discharge planning: home with home health
[2018-02-20] VITALS (9 sets, daily range): BP systolic 93–100; BP diastolic 60–66; PULSE 80–98; TEMP 36.4–36.8; O2SAT 85–92; Ht 172.7 cm; Wt 69.9 kg
[2018-02-20] MEDS: IPRATROPIUM BROMIDE NEB SOLN 0.02% 2.5 ML VIAL INH SCH ×3 (03:00→14:19)
[2018-02-20] MEDS: LEVALBUTEROL 1.25MG/0.5ML NEB INH SCH ×3 (03:00→14:19)
[2018-02-20 06:49] LABS: CALCIUM 7.9 mg/dl (8.5-10.1); CREATININE 0.78 mg/dl (0.60-1.40); POTASSIUM 4.3 mmol/L (3.5-5.1)
[2018-02-20] MEDS: FUROSEMIDE 40 MG TAB PO SCH (07:43)
[2018-02-20] MEDS: GUAIFENESIN 600 MG TABCR PO SCH (07:43)
[2018-02-20] MEDS: AMOXICILLIN/CLAVULANATE TAB 875 MG TAB PO SCH ×2 (07:43→16:43)
[2018-02-20] MEDS: RIVAROXABAN TAB 15 MG TAB PO SCH ×2 (07:43→16:43)
[2018-02-20] MEDS ORDERED: OXGN ×2 (16:02)
[2018-02-20] MEDS ORDERED: FRS/40 PO (16:02)
[2018-02-20] MEDS ORDERED: RIVA1TAB4 PO (16:02)
[2018-02-20] MEDS ORDERED: PRD10 PO (16:02)
[2018-02-20] MEDS ORDERED: XRL15 PO (16:02)
[2018-02-20] MEDS ORDERED: NEBMAC (16:02)
[2018-02-20] MEDS ORDERED: HYDR-5688 PO (16:02)
[2018-02-20] MEDS ORDERED: IPRA-64 INH (16:02)
--- NOTE | 2018-02-20 16:14 | Discharge Instructions ---
Discharge Instructions Date of Service Feb 20, 2018. Admission Reason for Admission: Lung cancer Discharge Discharge Diagnosis / Problem: (1) Pulmonary embolism (2) Lung cancer (3) COPD (chronic obstructive pulmonary disease) VTE Date & Time Date of VTE Diagnosis: Feb 11, 2018 Time of VTE Diagnosis: 15:45 Discharge Goals Goal(s): Decrease discomfort, Improve disease control, Learn about illness, Diagnostic testing, Therapeutic intervention Activity Recommendations Activity Limitations: as noted below You will likely be limited due to your breathing. Light activities are OK. If any activity makes your breathing worse please avoid those activities. . Instructions / Follow-Up Instructions / Follow-Up From Dr. Cesar: 1. Blood clots in your lungs - Medication Instructions: Your condition is typically treated with an anticoagulant. Anticoagulants will thin your blood to help prevent new clots. You are now taking "xarelto" instead of coumadin. * You should take her medication exactly as directed. * Never skip a dose. * Never take a double dose. If you miss a dose, take it as soon as you remember. Call your Primary Care doctor if you experience any of the following: * Swelling or Pain in your leg * Sudden, continuous pain deep in a muscle * Pain that worsens when you are active or when you stand still for a long time * Chest Pain * Sudden Shortness of Breath * Rapid or pounding heart beat * Fainting * Dizziness * Cough with blood or bloody sputum * Sweating more than normal * Bruises * Heavy or uncontrolled bleeding * Blood in your urine, stool or vomit * Black or tarry stools Caring for Your Self at Home: * Avoid sitting, standing or lying down for long periods without moving your legs and feet * When traveling by car, stop to get out and move around at least once every 3 hours * On long airplane, train or bus rides, get up and move around when possible * If you can't get up, wiggle your toes and tighten your calves to keep your blood moving Xarelto instructions - 1. Kadeem Jacinto is giving you 4 tablets of xarelto to use over the next 48 hours. Take 1 tablet every 12 hours. 2. Please drop off the "starter pack" handwritten prescription for the xarelto to your pharmacy. You can use the free 30-day card for this. Once it is in you will take xarelto 15mg twice a day for 3 weeks, then it changes to 20 (twenty) mg once a day thereafter. Simply follow the instructions in the starter pack. 3. The separate prescription for the 20mg tablets should NOT be filled at this time; you will get this filled in about 1 month. 2. Prednisone - please follow the "taper instructions" on the bottle. Once you reach 10mg please stay on 10mg once a day unless otherwise instructed. 3. Pain - you can take hydrocodone/acetaminophen 1 tablet every 6 hours as needed for pain. Do not take [id number] tylenol while using prescription pain pills. The pain pills may make you constipated and can cause you to be drowsy. 4. Oxygen - use 5 liters at all times including during sleep. 5. You may use [id number] mucinex 1200mg up to twice a day as desired/ needed for cough/congestion. 6. Nebulizer - I would encourage you to purchase a nebulizer machine from [facility]. 7. The medication for the nebulizer machine can be used every 6 hours. It is called "duoneb" (albuterol-ipratropium). The medication is obtained from your pharmacy (not [facility]). 8. Follow-up - see separate section for details. 9. Return to [facility] ER or the ER in [place] if - * you have fever over 100.5 degrees * you have worsening shortness of breath, chest pain, blood in your spit that is persistent * you see blood in your stool * you have uncontrolled pain * any other concerns Current Hospital Diet Patient's current hospital diet: AHA Diet (Heart Healthy) Discharge Diet Recommended Diet: Regular Diet Fluid Restriction: 1500 ml (6 cups) Procedures Procedures Performed: CAT scan of lungs showing advanced emphysema and lung cancer. Radiation treatments to the lung cancer x 2. MRI brain. CAT scan of the abdomen & pelvis. Pending Studies Studies pending at discharge: no Medical Emergencies . Who to Call and When: Medical Emergencies: If at any time you feel your situation is an emergency, please call 911 immediately. . Non-Emergent Contact Non-Emergency issues call your: Primary Care Provider, Oncologist, [employer] Pallet [employer] Call Non-Emergent contact if: temperature is above 100.5, your pain is not controlled, your pain is worsening, your pain is unusual for you, your pain is concerning you, wound has increased drainage, wound has increased redness, wound has increased pain, you have any medication questions . . "Provider Documentation" section prepared by Lionel Cesar. .
[2018-02-20] MEDS ORDERED: RIVAROXABAN TAB 15 MG TAB PO SCH ×2 (20:00)
[2018-02-21] MEDS ORDERED: FUROSEMIDE 20 MG TAB PO SCH (08:00)
--- NOTE | 2018-02-23 00:28 | Discharge Summary ---
Discharge Summary Date of Service Feb 22, 2018. Discharge Summary Admission Date: Feb 11, 2018 at 16:57 Discharge Date: Feb 20, 2018 Discharge Disposition: Home with services Principal Diagnosis: right-sided obstructive pneumonia & LLL pneumonia Problems/Secondary Diagnoses: Other medical problems addressed while hospitalized: 1. acute hypoxic/hypercarbic respiratory failure 2. COPD with exacerbation 3. hypercalcemia likely due to squamous cell lung cancer 4. 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 blister, dorsum of right foot 6. mild-moderate protein calorie malnutrition 7. b/l pulmonary emboli Chronic medical conditions: 1. chronic hypoxic respiratory failure on home O2 2. COPD 3. question of ARVIN infection 4. CAD 5. PAD 6. long-standing tobacco dependence 7. hyponatremia 8. anemia 9. chronic diastolic CHF Procedures: 1. CTA chest - IMPRESSION: 1. Study is positive for several small third order emboli involving the right and to a lesser extent left lung base. 2. Large invasive and destructive mass right lower lobe 3. Mass invades right posterior and posterior lateral chest wall as well as the lower thoracic spinal column. 4. Additional scattered nodular densities of the right hemithorax consistent with metastatic foci. Instill note is made of a significant upper pole left renal cyst as well as developing upper abdominal and retrocrural adenopathy. 2. CT chest - #2 - IMPRESSION: 1. Mildly progressive disease of the mid to lower aspects of the chest bilaterally. 2. Large destructive lesion with central necrosis shows a slight increase in volume. 3. Interval development of right middle lobe atelectatic change with probable developing nodularity and or adenopathy of the right hilum. 4. Moderately progressive basilar pulmonary nodularity bilaterally with interval small bilateral pleural effusions. 5. The overall appearance is suggestive of progressive disease with postobstructive atelectasis of the right middle lobe. 3. venous doppler b/l lower extremities - IMPRESSION: No sonographic evidence of deep venous or pneumatosis within the right or left lower extremity. 4. CT abd/pelvis - IMPRESSION: 1. No CT evidence of hepatic metastasis 2. 18 mm left adrenal nodule 3. Indeterminate 13 mm lytic focus within the left iliac bone 4. No evidence of pathologic adenopathy by size criteria 6. Left-sided nephrolithiasis 7. Large renal cysts 5. MRI brain - negative for metastatic disease. 6. echocardiogram - * -- Conclusions -- * Left ventricular systolic function is normal. * Right ventricular systolic pressure is normal. * Grade I diastolic dysfunction, (abnormal relaxation pattern). 7. pamidronate infusion for hypercalcemia Consultations: pulmonary critical care palliative care oncology radiation oncology PT, OT wound care Medication Reconciliation New Medications: Ipratropium-Albuterol (Duoneb) 3 Ml Nebu 1 TREATMENT INH Q6H, #1 BOX 11 Refills dx - COPD (J44.9); lung cancer (C34.90) Nebulizer Machine (Home Use) (Nebulizer Machine (Home Use) ) Mis EA N/A UD, #1 dx - COPD (J44.9); lung cancer (C34.90) Rivaroxaban (Xarelto) 20 Mg Tab 20 MG PO DAILY, #30 TABS 5 Refills do NOT FILL until the starter pack (first 30 days) is complete; you will fill this in 1 month. Hydrocodone/Acetaminophen 5MG/325MG ([place] 5MG/325MG) Tab 1 TAB PO Q4H PRN for Pain, #30 TAB 0 Refills PRN PAIN Prednisone (Prednisone) 10 Mg Tab 10 MG PO DIRECTED, #60 TAB 2 Refills start 02/21: take 3 tabs days 1/2, 2 tabs days 3-5, then 1 tab daily thereafter. Rivaroxaban (Xarelto) 15 Mg Tab 15 MG PO BID for 21 Days, #42 TAB 0 Refills Changed Medications: Furosemide (Lasix) 40 Mg Tab 20 MG PO QAM, #30 TAB 2 Refills (Changed from: 40 MG; Refills: ) Home O2 Therapy (Oxygen) Gas 5 LITERS NA continuous, #1 BTL 5 Refills (Changed from: 2 LITERS; DAILY; Refills : ) Home O2 Therapy (Oxygen) Gas 5 LITERS NA HS, #1 BTL 5 Refills (Changed from: 4 LITERS; Refills: ) Continued Medications: Albuterol Hfa (Ventolin Hfa) 200 Puffs/62184 Mcg Aers 2 PUFFS INH Q6H, #1 INHALER Montelukast Sodium (Singulair) 10 Mg Tab 10 MG PO QPM, TAB Umeclidinium-Vilanterol (Anoro Ellipta 62.5-25 Mcg/INH) 1 Aer Aer 1 PUFF INH QAM Discontinued Medications: Aspirin (Aspirin Ec) 81 Mg Tab 81 MG PO DAILY Azithromycin (Zithromax) 250 Mg Tab 250 MG PO DAILY, #4 TAB Ethambutol Hcl (Ethambutol Hcl) 400 Mg Tab 1000 MG PO DAILY Rifampin (Rifadin) 300 Mg Cap 300 MG PO BID, CAP Warfarin Sod (Jantoven) 5 Mg Tab 10 MG PO DAILY, TAB Discharge Exam Physical Exam: General Appearance: no apparent distress ENT: pharynx normal Neck: no JVD Respiratory/Chest: no respiratory distress, no accessory muscle use, + decreased breath sounds (right base), + crackles (both bases, worse on right), + wheezing, + pertinent finding (mass protruding from right posterior hemithorax ) Cardiovascular: regular rate, rhythm, no gallop, no murmur, normal peripheral pulses Abdomen / GI: normal bowel sounds, non tender, soft, no organomegaly Extremities: + pedal edema, + swelling (1+ b/l ) Neurologic/Psychiatric: alert, oriented x 3, + depressed affect Hospital Course HISTORY OF PRESENT ILLNESS: 67 y/o male with Hx advanced COPD, recent Dx of squamous cell cancer of the right lung, possible ARVIN infection, CAD, PVD, and tobacco dependence. The pt is dependent on 3L NC 02. He has been progressively SOB with a productive cough over the past day. He presented to the ER where an initial oxygen saturation was in the low 80s on his baseline 3L. He was sent for a CTA due to hypoxia which demonstrated several small third order emboli involving the right and to a lesser extent left lung base. A large, invasive R lung mass is again confirmed. The pt's INR is 2.8 on admission. His family states that recently, numbers have been subtherapeutic due to multiple antibiotics used to treat ARVIN. He does not complain of CP and could not confirm a fever. Initial labs are notable for leukocytosis. HOSPITAL COURSE: The patient's hospitalization was marked by acute hypoxic/hypercarbic respiratory failure in the setting of his chronic hypoxic respiratory failure. The acute component was multifactorial in origin including multiple small PEs, COPD exacerbation, his extensive squamous cell cancer, progressive bilateral pneumonia, and RML collapse/atelectasis 2nd to adenopathy from his cancer. At time of admission the patient was placed on broad-spectrum IV antibiotics and steroids along with aggressive pulmonary toilet and supportive care. Despite such the patient worsened and on 02/13/18 he was transferred to the ICU where he was placed on BIPAP. Fortunately intubation and mechanical ventilation were never needed. He was able to be transferred back to the medical floor on 02/14/18. For the remainder of his stay he remained on antibiotics and steroids for his pneumonia/COPD. He completed a full 10-day course of antibiotics while hospitalized. He will complete a short taper of prednisone after discharge and I recommended he stay on 10mg once daily to help promote appetite and for his end-stage COPD. The patient was seen by oncology and radiation oncology for his stage 4 squamous cell cancer of the lung. Radiation oncology advised 10-15 fractions of palliative radiation to this right -sided lung cancer/mass and the patient completed 2 of these prior to discharge. Oncology plans to meet with him post-discharge to discuss palliative chemotherapy options. Multiple discussions were held between the patient, his , the hospitalist team, and palliative care. Despite his poor prognosis and fragile state the patient DID express that he wished to pursue palliative chemotherapy. He declined hospice at time of discharge. He did elect to make himself a DNR during this hospitalization, however. Other issues addressed - 1. hypercalcemia - the patient received Pamidronate infusion on 02/15/18 for his hypercalcemia which was thought to be due to his malignancy. His calcium normalized prior to discharge. 2. bilateral PEs - these occurred in the setting of chronic coumadin use. Oncology advised either changing him to lovenox injections or a DOAC. Due to cost and other factors the patient will be sent home on xarelto 15mg BID x 21 days followed by 20mg once daily thereafter. Coumadin has been discontinued. 3. possible ARVIN infection - pulmonary recommended to stop treatment at this time as the risks of treating outweighed its benefits. All ARVIN treatments were stopped. 4. bilateral lower extremity edema - the patient received lasix regularly during his stay for such. He will discharge to home on 20mg once daily. 5. blister, right foot - dorsum - the patient was seen by the wound care team and they recommended optifoam dressings. 6. chronic hypoxic respiratory failure - pulmonary recommended use of night- time BIPAP after discharge but unfortunately he did not qualify for such based on his overnight oximetry study and AM ABG results. He will remain on 5 liters NC O2 continuously following discharge. Prescriptions for a nebulizer machine and duonebs were given at discharge. The patient's status remains tenuous in light of his advanced cancer and end- stage COPD. He remains at high risk of readmission to the hospital. Total Time Spent: Greater than 30 minutes This includes examination of the patient, discharge planning, medication reconciliation, and communication with other providers. Discharge Instructions Please refer to the electronic Patient Visit Report (Discharge Instructions) for additional information. Follow-Up 1. Dr. Timoteo Lunsford on SaturdayFebruary 24 at 10:00 am. 2. Jasmine Sandhu PA-C (pulmonary) on SaturdayFebruary 26 at 1:30 pm. 3. [facility] with Dr. Brayan Connor on SaturdayFebruary 26 at 3:30 pm. 4. [facility] for radiation on SaturdayFebruary 21 at 2:30 pm. Additional Copies To Jeff Boyer DO; Brayan Connor D.O.; Veeral. Kirby MD; Timoteo Lunsford M.D.
== END 2018-02-20 17:10 | disposition home health service (06) | DRG 193 ==
LOC: C.EDB 14:26 → C.2E 16:57 → ENRESERV 17:06 → C.MSICU 02-13 14:18 → ENRESERV 02-14 08:04 → C.4E 02-14 10:40
PROVIDERS: ADMIT Internal Medicine; ATTEND Internal Medicine
DX: J18.1 Lobar pneumonia, unspecified organism (principal); J96.21 Acute and chronic respiratory failure with hypoxia; J96.22 Acute and chronic respiratory failure with hypercapnia; I26.99 Other pulmonary embolism without acute cor pulmonale; J44.0 Chronic obstructive pulmonary disease with (acute) lower respiratory infection; J44.1 Chronic obstructive pulmonary disease with (acute) exacerbation; I47.1 Supraventricular tachycardia; C34.31 Malignant neoplasm of lower lobe, right bronchus or lung; C79.72 Secondary malignant neoplasm of left adrenal gland; C79.51 Secondary malignant neoplasm of bone; I50.32 Chronic diastolic (congestive) heart failure; E44.1 Mild protein-calorie malnutrition; Y95 Nosocomial condition; J18.8 Other pneumonia, unspecified organism; A31.0 Pulmonary mycobacterial infection; Z99.81 Dependence on supplemental oxygen; F17.210 Nicotine dependence, cigarettes, uncomplicated; E83.52 Hypercalcemia; E87.5 Hyperkalemia; T38.0X5A Adverse effect of glucocorticoids and synthetic analogues, initial encounter; S90.821A Blister (nonthermal), right foot, initial encounter; X58.XXXA Exposure to other specified factors, initial encounter; I25.10 Atherosclerotic heart disease of native coronary artery without angina pectoris; I73.9 Peripheral vascular disease, unspecified; Z66 Do not resuscitate; Z86.711 Personal history of pulmonary embolism; Z79.01 Long term (current) use of anticoagulants; Z79.82 Long term (current) use of aspirin; Z79.899 Other long term (current) drug therapy

== ENCOUNTER → 2018-02-26 | Outpatient (CLI) | payer OTHER ==
[~2018-02-26] MED LIST changes: -ASPI81TA28 PO; -AZIT250T PO; -ETHA1TAB8 PO; +HYDR-5688 PO; +IPRA-64 INH; +NEBMAC; +PRD10 PO; -RIFA300C34 PO; +RIVA1TAB4 PO; +VNTHFA/IN INH; -WARF5TAB7 PO; +XRL15 PO
--- NOTE | 2018-02-26 11:57 | DIAGNOSTIC IMAGING REPORT ---
PET/CT CLINICAL HISTORY: Non-small cell lung cancer. COMPARISON STUDY: Chest CT dated 02/16/2018 and 12/06/2017. Abdominal CT dated 02/12/2018. TECHNIQUE: One hour following the IV administration of 12.29 mCi of F-18 FDG, PET/CT examination was performed from the orbital meatal line through the bony pelvis. Noncontrast CT is performed for the purposes of anatomic correlation and attenuation correction. Note that this does not reflect a diagnostic CT examination. Images were reviewed on a separate [employer] independent workstation. Fused images were obtained. Standard uptake values reported are maximum values within the region of interest expressed in gm/mL. FINDINGS: PET FINDINGS: Head and neck: There is expected physiologic activity within the visualized brain parenchyma at the skull base and the salivary glands. Thorax: Evaluation of the thorax demonstrates expected physiologic myocardial activity. There is a large right lower lobe mass lesion with central necrosis and cavitation. This is best seen on image #92 and measures approximately 8.5 x 9 cm. This is difficult to adequately measure due to surrounding pleural fluid and atelectasis. The mass is markedly FDG avid with a maximum SUV of 8.5. The mass lesion extends through the right posterior chest wall into the subcutaneous fat. Foci of nodularity seen within the subcutaneous soft tissues on image #95 measuring at least 3.0 cm and image #106 measuring at least 2.5 cm. These lesions are FDG avid with a maximum SUV of up to 3.3. There is erosion with bony destruction involving the right posterior seventh, eighth, ninth ribs. There are additional cavitary nodules identified in the right lower lobe. There are at least 6 additional lesions in the right lower lobe, some of which demonstrate central cavitation. The largest is seen on image #109 and measures 2.8 x 3.1 cm. These lesions are also FDG avid endometrium maximum SUV of 2.8. Intralobular septal thickening and nodularity in the right lower lobe suggesting spread of tumor. A 1.2 cm nodule at the medial left lung base is seen image #110. This was not clearly FDG avid; however, this is new from prior studies and is concerning for metastatic disease. No FDG avid right hilar adenopathy is clearly identified. Abdomen and pelvis: There is expected activity within the liver, spleen, kidneys, renal collecting system, and bladder. Low-level bowel activity is likely within physical limits. There is a 1.8 cm lesion in the right paraspinous musculature seen on image #121. This is FDG avid with a maximum SUV of 2.8. A 1.7 cm osteolytic lesion the left ilium is seen on image #190 and demonstrates a maximum SUV of 8.1. Skeletal structures: As noted above, there is permeative destruction of the right posterior 7th through 9thth ribs due to direct extension of the lower lobe pulmonary mass. There is a 3 cm lytic lesion identified within the left pubic symphysis on image #211. This is markedly FDG avid with a maximum SUV of 8.0. There is FDG avid lesion involving the right posterolateral 10th rib seen on image #121. This demonstrates a maximum SUV of 3.9. Unenhanced CT images: The partially imaged brain parenchyma the posterior fossa is grossly unremarkable. The visual paranasal sinuses are clear and the mastoid air cells are well pneumatized. The salivary and thyroid glands are normal in appearance. No cervical adenopathy is seen. The thoracic aorta is normal in caliber. The heart is normal in size and without pericardial effusion. A small hiatal hernia is observed. There is advanced emphysema. A small to moderate right pleural effusion has modestly increased in size from 02/16/2018. See above under PET findings for discussion of pulmonary lesions. There is no mediastinal or axillary lymphadenopathy. The unenhanced liver, gallbladder, spleen, right adrenal gland, and pancreas are grossly unremarkable. A left adrenal adenoma is unchanged. The kidneys are atrophic and without hydronephrosis. There are bilateral nonobstructing renal calculi. Large bilateral renal cysts measure up to 8.5 cm. The abdominal aorta is normal in caliber noting moderate atherosclerotic calcification. No bowel obstruction is seen. There is moderate sigmoid diverticulosis without CT evidence of acute diverticulitis. Moderate fecal retention is observed. There is no intraperitoneal free air or abdominal ascites. There is no abdominal, retroperitoneal, pelvic sidewall, or inguinal lymphadenopathy. The bladder, prostate, and seminal vesicles are normal as visualized. The skeletal structures are osteopenic. Degenerative changes noted throughout the spine. IMPRESSION: 1. Again seen is a large, cavitary, and markedly FDG avid right lower lobe pulmonary mass lesion. This extends through the right posterior chest wall with associated rib destruction. 2. There are additional smaller nodules identified in the right lower lobe, some which demonstrate cavitation. These were also FDG avid and consistent with metastatic disease. Findings suggest lymphocytic spread of tumor in the right lower lobe. 3. There is a 1.2 cm left lower lobe pulmonary nodule. This was not demonstrably FDG avid but is concerning for metastatic disease as this was not seen on prior examinations. 4. There are subcutaneous metastatic foci identified within the right posterior chest wall superficial to the mass lesion as well as within the right paraspinous musculature in the lower back. 5. There is evidence of multifocal osseous metastatic disease involving the left pubic symphysis, the left ilium, and the right posterolateral 10th rib. 6. Bilateral nephrolithiasis. 7. Emphysema. 8. Colonic diverticulosis without CT evidence of acute diverticulitis. 9. A small to moderate right pleural effusion has modestly increased in size from previous. 10. Additional findings as above. Electronically signed by: Finn Nichole M.D. 02/26/2018 11:56 AM Dictated Date/Time: 02/26/2018 11:33 AM
== END | disposition home or self-care (01) ==
LOC: C.PET 09:04
PROVIDERS: ATTEND Internal Medicine Hematology & Oncology
DX: C34.31 Malignant neoplasm of lower lobe, right bronchus or lung (principal)